=== PATIENT | female | born 2000 | race African-American/Black ===

== ENCOUNTER 2022-11-12 14:28 | Emergency (ER) | payer SELFPAY ==
[2022-11-12 14:29] VITALS: BP 165/103; PULSE 109; RESP 20; TEMP 36; O2SAT 98; BMI 43.4
--- NOTE | 2022-11-12 14:36 | EX.ED.DYSGE1 ---
HPI History of Present Illness Chief Complaint: Anxiety [facility] Medical History (Updated 11/12/22 @ 14:42 by Kelin Canales) Anxiety Home Medications hydroxyzine HCl 25 mg tablet 25 mg PO TID PRN anxiety #30 tabs 11/12/22 [Rx Last Taken Unknown] Allergy/AdvReac Type Severity Reaction Status Date / Time Penicillins [PCN] Allergy Laryngospas Verified 11/12/22 14:29 ms Social History Smoking Status: Never smoker EXAM Physical Exam Const Vital Signs: 11/12/22 14:29 Temperature 96.8 F L Temperature Source Temporal Pulse Rate 109 H Respiratory Rate 20 H Blood Pressure 165/103 H Blood Pressure Mean 123 Pulse Ox 98 Oxygen Delivery Method Room Air MDM MDM MDM Narrative Medical decision making narrative: HISTORY OF PRESENT ILLNESS: 22-year-old female here with anxiety. States she recently moved. States has been taking her anxiety medications which are but they do not seem to be working. She denies any suicidal homicidal ideation. Patient states she has moved in with her sister recently and this has caused more anxiety. She denies any chest pain, shortness of breath, bleeding diathesis, vomiting or other volume loss. REVIEW OF SYSTEMS: Pertinent positives: Anxiety Pertinent negatives: Suicidal ideation, homicidal ideation PHYSICAL EXAM: Nursing triage notes reviewed, Vital signs reviewed Constitutional: please see mdm HENT: MMM Eyes: Pupils equal round and reactive to light, Extraocular muscles intact Neck: No stridor, no JVD, full neck ROM Lungs: Clear to auscultation, No wheezing or rales. No increased work of breathing, no conversational dyspnea, no accessory muscle use, no nasal flaring. No respiratory distress noted Heart: Regular rate and rhythm, No murmurs, No rubs and No gallops, 2+ distal pulses (radial, femoral, posterior tibial) in all extremities Abdomen: Soft, there is no tenderness, rigidity, rebound or guarding, no obvious peritoneal signs, no palpable pulsatile abdominal masses, no auscultated abdominal bruit : No CVAT Extremities: No edema Neuro: No focal neurological deficits, cranial nerves II through XII intact, 5/5 strength in all extremities. Intact sensation to light touch in all extremities, 2+ reflexes bilateral patella tendons. Normal gait. No ataxia. Skin: No rash or lesions noted Psych: Appears calm, goal-directed thought process, not respond to internal stimuli MEDICAL DECISION MAKING: Chief Complaint: Anxiety External records reviewed: No recent ED visits or hospitalizations noted MDM Narrative: 22-year-old female here with anxiety. She was initially hypertensive, tachycardic and tachypneic. She is afebrile. Patient did not appear particularly anxious. I obtained an EKG which showed no arrhythmia heart rate was 83 improved from initial triage heart rate of 109. She is able to endorse feeling more anxious secondary to change in living situation. She denied any suicidal ideation, homicidal ideation. She denied any auditory visual hallucinations. She states has been compliant with her home lithium but has not been compliant with her home venlafaxine. I offered her Atarax here and a prescription for Atarax obtained a social work consultation for community resources. Patient did not have a decompensated psychiatric condition on exam. She had no endorse symptoms of suicide or homicide. She is appropriate for outpatient follow-up. Factors affecting care: History of anxiety Social determinants of health: Denies alcohol or illicit drug use History obtained from others: None Shared decision making: I will have a discussion with the patient and or visitors regarding risk/benefits of further testing or admission. They will be made aware of of the risk/benefits inherent in this decision they will be given the opportunity to voice understanding. Consults: Behavioral health (social work) Lab Data Attestation: I reviewed the patient's lab results. Lab results narrative: EKG with normal sinus rhythm, normal axis, no intervals, no STEMI, no Brugada, no ARVD, no signs of pericarditis Discharge Plan Triage Chief Complaint: Anxiety ED Provider: Gibson [place] Dx/Rx/DC Orders Instructions: ED Anxiety Reaction Prescriptions: New hydroxyzine HCl 25 mg tablet 25 mg PO TID PRN (Reason: anxiety) Qty: 30 0RF Stand Alone Forms: ED Work / School Excuse Primary Care Provider: Care Physician,No Primary Activity Restrictions/Additional Instructions: Thank you for trusting us with your care today! Please take Atarax (hydroxyzine) as prescribed as needed for anxiety. Please return if you develop suicidal ideation, homicidal ideation, auditory or visual hallucinations. Please return to the emergency department if your symptoms change or worsen. Please follow with your primary care physician for further outpatient evaluation and management. Disposition Disposition: Home, Self Care Discharge Date/Time: 11/12/22:35
--- NOTE | 2022-11-12 14:46 | ED.RN ---
NO OLD EKGS
--- NOTE | 2022-11-12 21:09 | CM.ED ---
Social Work SW introduced self and role. Pt reports high anxiety and many stressors. Pt reports she does not believe her medications are working. Pt recently moved to [place] from [place] and has not become established with providers. Pt reports significant mental health history and medications and would benefit from finding a local psychiatric provider. Pt reports her parents also just moved here and they are not established either. Pt provided with PCP resources, counseling and psychiatry resources, Juliana Jung information and anxiety coping worksheet. SW provided emotional support. Tamara Tello FIELD ENUMERATOR, STREET WORKER
== END 2022-11-12 15:35 | disposition home or self-care (01) ==
LOC: ED 15:07
PROVIDERS: Emergency Provider Emergency Medicine; Visit Provider Emergency Medicine
DX: F41.9 Anxiety disorder, unspecified (principal)
CPT/HCPCS: 93005; 99282

== ENCOUNTER 2023-03-01 05:09 | Emergency (ER) | payer MEDICAID, SELFPAY ==
[2023-03-01 05:10] VITALS: BP 142/88; PULSE 95; RESP 18; TEMP 36.3; O2SAT 100; BMI 42.7
--- NOTE | 2023-03-01 05:15 | CT_ITS ---
EXAM: CT Abdomen And Pelvis W/O Contrast Injection HISTORY: Kidney Stone L nausea, abdomen pain, no hx kidney stones TECHNIQUE: Routine protocol CT abdomen and pelvis. IV Contrast: None.. Oral contrast: None. RADIATION DOSAGE (If Supplied By Facility): CTDIvol = ( 21.14 ) mGy, DLP = ( 1188.38 ) mGycm Individualized dose optimization techniques were used for this CT. COMPARISON: None. LIMITATIONS: None. FINDINGS: LOWER CHEST: Included lung bases are clear. LIVER: Grossly unremarkable. GALLBLADDER AND BILIARY TREE: Gallstones in the gallbladder. No definite inflammatory changes. PANCREAS: Grossly unremarkable. SPLEEN: Enlarged. Approximately 18 cm craniocaudal. ADRENAL GLANDS: Grossly unremarkable. KIDNEYS AND URETERS: No calculi demonstrated. No hydronephrosis. PERITONEUM: No free air. No free fluid. BOWEL: No bowel obstruction. Several mildly enlarged lymph nodes in the mesentery. APPENDIX: Visualized and unremarkable. No evidence of acute appendicitis. VESSELS: Abdominal aorta is normal caliber. REPRODUCTIVE ORGANS: Approximately 3 cm low-attenuation structure right ovary probable cyst. URINARY BLADDER: Not distended. ABDOMINAL WALL: Unremarkable. BONES: No acute abnormalities. CT/Abdomen/Pelvis without Cont IMPRESSION: No urolithiasis or hydronephrosis. Splenomegaly. Mesenteric adenopathy nonspecific. Cholelithiasis. Electronically Signed: Sultana Albarado MD at 6:15 EDT ,
--- NOTE | 2023-03-01 05:15 | ED.VIS.GI ---
HPI HPI - GI History of Present Illness Chief Complaint: Abd Pain Informant: patient and EMS Abdominal Pain/Flank Pain Onset: Hours (A couple) Context: Sudden Onset (Woke her up from sleep) Timing: Continuous and Waxes and wanes Quality: Aching Location: Left Flank Current Severity: Severe Maximum Severity: Severe Nausea/Vomiting/Emesis GI Symptom: Positive for Nausea; Negative for Vomiting Diarrhea/Melena/Hematochezia GI Symptom: Negative for Diarrhea, Melena or Hematochezia Associated Symptoms Associated Symptoms: Negative for Dysuria, Frequency, Hematuria or Urgency Narrative Narrative: Woke up with this colicky left-sided abdominal/flank pain that she has never had before. Nausea, no urinary symptoms or problems with bowel movements recently. No pain in her back. No recent . [facility] Medical History (Updated 03/01/23 @ 06:[address] Giacomo Kwon MD) Anxiety Home Medications hydroxyzine HCl 25 mg tablet 25 mg PO TID PRN anxiety #30 tabs 11/12/22 [Rx Last Taken Unknown] Allergy/AdvReac Type Severity Reaction Status Date / Time Penicillins [PCN] Allergy Laryngospas Verified 03/01/23 05:12 ms Surgical History (Updated 03/01/23 @ 05:[address] Giacomo Kwon MD) History of Social History Smoking Status: Never smoker ROS ROS ED Constitutional Constitutional ED: Denies chills or fever(s) Eyes Eyes: Denies change in vision or diplopia ENT ENT ED: Denies rhinorrhea or sore throat Cardiovascular Cardiovascular: Denies chest pain or palpitations Respiratory/Chest Respiratory/Chest: Denies cough or dyspnea Gastrointestinal Gastrointestinal: Reports abdominal pain and nausea; Denies diarrhea or vomiting Genitourinary Genitourinary ED: Denies dysuria or hematuria Musculoskeletal Musculoskeletal: Denies back pain or neck pain Integumentary Denies abscess or rash Neurologic Neurologic: Denies headache(s), paresthesias or weakness Psychiatric Psychiatric: Denies anxiety or suicidal thoughts EXAM Physical Exam Const Vital Signs: 03/01/23 05:10 Temperature 97.4 F L Temperature Source Temporal Pulse Rate 95 Respiratory Rate 18 Blood Pressure 142/88 H Blood Pressure Mean 106 Pulse Ox 100 Oxygen Delivery Method Room Air Positive well nourished and well developed General Appearance ED: well developed and NAD HEENT Reports moist mucous membranes normocephalic and atraumatic Eyes PERRL and EOMs intact bilaterally Neck full ROM and supple Resp normal respiratory effort and clear to auscultation bilaterally Cardio regular rate, regular rhythm and no murmurs GI non-tender and non-distended Auscultation: normoactive bowel sounds Palpation: soft Back/Spine no CVA tenderness General Back: other FROM Extremity normal to inspection General Extremety ED: Negative for edema, pulses abnormal or tenderness General Extremity: Negative for edema or pulses abnormal Neuro oriented x3, CN's II-XII intact bilaterally and no sensory deficits noted Sensorium / Orientation: awake and alert Motor Exam: strength 5/5 throughout Skin no rashes or lesions noted and no wounds MDM MDM MDM Narrative Medical decision making narrative: Patient's symptoms are compatible with ureterolithiasis and renal colic, since she has never had this before we sent her for CT, I reviewed the images and report which I agree with, it does not reveal signs of an obstructive uropathy or kidney stone. Rather shows signs of mesenteric adenitis without signs of a separate acute process. Also noted is cholelithiasis. Patient is not tender in this area of her abdomen. Her urinalysis is negative showing no signs of infection or blood. confirmed to be negative. She was given Toradol while we were waiting for these test to return, but she states that it did not help her pain, and now it switch to the other side and is on both sides. This makes functional GI/intestinal pain more likely, so she was given Mylanta advanced and dicyclomine. She felt much better after this. CT results show mesenteric adenopathy, there is some evidence of cholelithiasis but she is not having any pain or tenderness at her gallbladder. No signs of any other acute process on the CT. I reviewed the images and report I agree with it. Given all of this, she is stable for discharge home supportive care is advised. I do not think we need to get labs for this, she is comfortable with that plan Lab Data Attestation: I reviewed the patient's lab results. Labs: Laboratory Results - last 24 hr 03/01/23 05:22 Serum , Qual NEGATIVE Urine Color Yellow Urine Clarity Clear Urine pH 7.0 Ur Specific [place] 1.010 Urine Protein Negative Urine Glucose (UA) Normal Urine Ketones Negative Urine Occult Blood Negative Urine Nitrite Negative Urine Bilirubin Negative Urine Urobilinogen Normal Ur Leukocyte Esterase Negative Urine RBC 0 SEEN Urine WBC 0 SEEN Ur Squamous Epith Cells 0-5 SEEN Urine Bacteria 1+ Urine Mucus 0 SEEN Radiography Diagnostic Testing: Clinical Impression(s) from Imaging Studies Abdomen/Pelvis CT 03/01/23 05:15 IMPRESSION: No urolithiasis or hydronephrosis. Splenomegaly. Mesenteric adenopathy nonspecific. Cholelithiasis. Electronically Signed: Sultana Albarado MD at 6:15 EDT , Discharge Plan Triage Chief Complaint: Abd Pain ED Provider: Giacomo Kwon Dx/Rx/DC Orders Clinical Impression: Mesenteric lymphadenopathy, Cholelithiasis Instructions: What Are Gallstones, ED Adenitis, Mesenteric Prescriptions: No Action hydroxyzine HCl 25 mg tablet 25 mg PO TID PRN (Reason: anxiety) Qty: 30 0RF Primary Care Provider: Care Physician,No Primary Referrals: Doctor,Your [Non-Staff] - 1 Week if not improving Disposition Disposition: Home, Self Care
[2023-03-01] MEDS: Ondansetron 4 MG/2 ML Vial IV (05:22)
[2023-03-01] MEDS: Ketorolac 30 MG/ML Syringe IV (05:22)
[2023-03-01 05:29] LABS: Mucous, Urine 0 SEEN /hpf (<or=2+); Red Blood Cells-Urine 0 SEEN /hpf (0-5); White Blood Cells 0 SEEN /hpf (0-5)
[2023-03-01 05:30] LABS: Color, Urine Yellow (Yellow); Glucose, Dipstick Normal (Normal); Ketone-Dipstick Negative (Negative); Leukocyte Esterase-Dipstick Negative /ul (Negative); Nitrite-Dipstick Negative (Negative); Occult Blood-Urine Negative /ul (Negative); Protein-Dipstick Negative (Negative); Urine Bilirubin Dipstick Negative (Negative); Urine Clarity Clear (Clear); Urine Urobilinogen Normal (Normal)
[2023-03-01 05:41] LABS: Internal QC Validated? YES +Cl - CLEAR BKGD; Pregnancy, Serum, hCG Quali. NEGATIVE Negative
[2023-03-01 05:53] LABS: Bacteria 1+ /hpf (None Seen); Squamous Epithelial Cells - UA 0-5 SEEN /hpf (5-10)
[2023-03-01] MEDS: Mag Hydrox/Al Hydrox/Simeth 30 ML UDC PO (06:11)
[2023-03-01] MEDS: Dicyclomine 10 MG Capsule 20 MG PO (06:11)
[2023-03-01 07:05] VITALS: BP 128/90; PULSE 54; RESP 14; O2SAT 97
== END 2023-03-01 07:10 | disposition home or self-care (01) ==
PROVIDERS: Emergency Provider Emergency Medicine; Visit Provider Emergency Medicine
DX: R59.0 Localized enlarged lymph nodes (principal); K80.20 Calculus of gallbladder without cholecystitis without obstruction
CPT/HCPCS: 74176; 81001; 84703; 96374; 96375; 99285; J2405

== ENCOUNTER 2023-06-24 23:07 | Emergency (ER) | payer MEDICAID, SELFPAY ==
[2023-06-24 23:07] VITALS: BP 150/107; PULSE 86; RESP 16; TEMP 36.4; O2SAT 98; BMI 41.3
--- NOTE | 2023-06-24 23:56 | EX.ED.VIS.UR ---
HPI HPI - URI History of Present Illness Chief Complaint: Cold Sx Informant: patient Onset/Context/Timing Onset: Days Context: Gradual Onset Timing: Continuous Current Severity: Mild Maximum Severity: Mild Associated Symptoms Associated Symptoms: Positive for Nasal Congestion Narrative Narrative: 23-year-old female history of asthma and anemia. Younger sister has URI symptoms she is developing same. No vomiting or diarrhea. No fever. Not short of breath. Also states she is having more anxiety. Not suicidal. Prior similar symptoms: Yes Recent Illness/Hospitalization: No ROS ROS ED ROS Narrative URI symptoms. Review of Systems ROS Unobtainable: Denies due to encephalopathy Constitutional Constitutional ED: Denies chills or fever(s) Eyes Eyes: Denies blurry vision ENT ENT ED: Denies ear pain Cardiovascular Cardiovascular: Denies chest pain Respiratory/Chest Respiratory/Chest: Reports cough; Denies dyspnea Gastrointestinal Gastrointestinal: Denies abdominal pain, constipation, diarrhea, melena, nausea or vomiting Genitourinary Genitourinary ED: Denies dysuria or hematuria Musculoskeletal Musculoskeletal: Denies arthralgias Integumentary Denies abscess, Abrasions or rash Neurologic Neurologic: Denies headache(s) Psychiatric Psychiatric: Reports anxiety; Denies depression Endocrine Endocrinology: Denies cold intolerance Hematologic/Lymphatic Hematologic/Lymphatic: Denies easy bleeding Allergic/Immunologic Allergic/Immunologic ED: Denies mouth swelling PFSH PFSH Medical History Alpha thalassemia trait Ankle fracture, left Anxiety G6PD deficiency Iron deficiency anemia due to chronic blood loss Ovarian cyst Splenomegaly Home Medications hydroxyzine HCl 25 mg tablet 25 mg PO TID PRN anxiety #30 tabs 11/12/22 [Rx Last Taken Unknown] desvenlafaxine succinate 50 mg tablet,extended release 24 hr (Pristiq) 50 mg PO DAILY 03/18/23 [History Last Taken Unknown] lamotrigine 25 mg tablet 25 mg PO DAILY 03/28/23 [History Last Taken Unknown] Allergy/AdvReac Type Severity Reaction Status Date / Time Penicillins [PCN] Allergy Laryngospas Verified 06/24/23 23:09 ms Family History Mother Diabetes Hypertension Grandmother Cancer possibly SCLC, mets to brain; maternal Surgical History History of History of wisdom tooth extraction Social History Smoking Status: Never smoker alcohol intake: never substance use type: does not use EXAM Physical Exam Narrative Exam Narrative: Well-appearing 23-year-old female. Vital signs stable afebrile. Pulse ox 98% on room air. No distress. H EENT exam unremarkable. TMs normal. Posterior pharynx normal. Moist mucous membranes. Neck nontender no lymphadenopathy. No JVD. Lungs clear to auscultation bilaterally. Heart regular rhythm no murmur. Abdomen soft nontender. Moving all 4 extremities. Calves are nontender without edema or cords. Neurologically she is awake and alert with no focal motor deficits. Very benign exam. Const Vital Signs: 06/24/23 23:07 Temperature 97.5 F L Temperature Source Temporal Pulse Rate 86 Respiratory Rate 16 Blood Pressure 150/107 H Blood Pressure Mean 121 Pulse Ox 98 Oxygen Delivery Method Room Air Positive well nourished and well developed; Negative for cachectic or contractures General Appearance ED: well developed and NAD; Negative for cachectic, contractures, cyanotic, diaphoretic or pallor Nutritional Appearance: Negative for cachectic HEENT Reports moist mucous membranes normocephalic and atraumatic Face and Sinus: Negative for sinus tenderness Teeth and Gingiva: Negative for caries Throat: posterior oropharynx normal Eyes PERRL and EOMs intact bilaterally General Eye ED: Negative for pale conjunctiva or scleral icterus Neck no lymphadenopathy, supple, no meningeal signs and no JVD General: Negative for anterior neck swelling or lymphadenopathy Resp normal respiratory effort and clear to auscultation bilaterally Effort and Inspection: Negative for retractions Auscultation: Negative for rales, rhonchi or wheezes Cardio S1 normal heart sound, S2 normal heart sound and no murmurs Rate: regular rate Rhythm: regular rhythm GI non-tender, non-distended and no masses Inspection: Negative for abdominal distention Auscultation: normoactive bowel sounds Palpation: soft; Negative for tender or guarding Back/Spine no CVA tenderness and normal ROM General Back: Negative for CVA tenderness Cervical Spine: Negative for cervical spine tenderness Thoracic Spine / Upper Back: Negative for thoracic spinal tenderness Lumbar Spine / Lower Back: Negative for lumbar spinal tenderness Sacrum: Negative for tenderness Extremity normal to inspection and full ROM General Extremety ED: Negative for cyanosis, tenderness or other findings General Extremity: Negative for cyanosis or other findings Neuro oriented x3 and CN's II-XII intact bilaterally Sensorium / Orientation: alert, oriented to person, oriented to place and oriented to time; Negative for orientation impaired or lethargic Motor Exam: strength 5/5 throughout Psych mental status grossly normal Appearance: Negative for other Attitude: No agitated Mood & Affect: Negative for depressed, anxious or tearful Skin General Skin Exam: Negative for jaundice or pallor Lesions: no lesions Rashes: no rashes Trauma: Negative for abrasion or laceration MDM MDM MDM Narrative Medical decision making narrative: 23-year-old with URI symptoms. Exam is benign. Suspect viral illness. She is already on anxiety meds. She has a follow-up appointment the end of this week with her primary care physician which they can discuss if she needs additional medication. She is comfortable being discharged home. History & Record Review Discussion w/independent historian: Patient Discharge Plan Triage Chief Complaint: Cold Sx ED Provider: Mark Lutz Dx/Rx/DC Orders Clinical Impression: Anxiety, Viral URI Instructions: ED URI, Viral, No Abx (Adult) Prescriptions: No Action desvenlafaxine succinate [Pristiq] 50 mg tablet extended release 24 hr 50 mg PO DAILY lamotrigine 25 mg tablet 25 mg PO DAILY hydroxyzine HCl 25 mg tablet 25 mg PO TID PRN (Reason: anxiety) Qty: 30 0RF Primary Care Provider: Care Physician,No Primary Referrals: Care Physician,No Primary [Primary Care Provider] - Activity Restrictions/Additional Instructions: Plenty of fluids and rest. Tylenol and ibuprofen for body aches. Follow-up with your doctor. Continue your anxiety meds. Disposition Disposition: Home, Self Care
== END 2023-06-25 | disposition home or self-care (01) ==
LOC: ED 06-25
PROVIDERS: Emergency Provider Emergency Medicine; Visit Provider Emergency Medicine
DX: F41.9 Anxiety disorder, unspecified (principal); J06.9 Acute upper respiratory infection, unspecified
CPT/HCPCS: 99282

== ENCOUNTER 2023-09-06 20:48 | Emergency (ER) | payer MEDICAID, SELFPAY ==
[2023-09-06 20:50] VITALS: BP 150/99; PULSE 112; RESP 18; TEMP 36.6; O2SAT 98
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
[2023-09-06 21:25] VITALS: BMI 42.5
[2023-09-06 21:28] VITALS: BP 112/87; PULSE 81; RESP 16; TEMP 36.3; O2SAT 99
--- OUTSIDE RECORDS SUMMARY | 2023-09-06 21:32 | XMS RPT_ITS | CCD ---
Author Name Unknown Address [address] [place] [address] Organization [facility] Care Team Providers Care Customer Relationship Specialist Name Role Phone LIVE GOOD, NIYAH Attending Unavailable FRANKIE JACKSON, ELISABETH Attending Unavailable SOCO JACKSON, DR RODOLFO Mejia Attending Unavailable Allergies Allergy Classification Reported Allergen(s) Allergy Type Date of Onset Reaction(s) Facility (1 source) Penicillin; Translations: [penicillin] Drug Allergy [facility] Medications Current Medications Medication Drug Class(es) Dates Sig (Normalized) Sig (Original) famotidine 20 mg oral tablet (1 source) Histamine-2 Receptor Antagonist Start: 08-18-2023 Pepcid 20 mg oral tablet Dose : 20 mg = 1 tab(s), Oral, BID, # 30 tab(s), 0 Refill(s) Start Date: 08/18/23 Status: Ordered ondansetron 4 mg disintegrating oral tablet (1 source) Serotonin-3 Receptor Antagonist Start: 08-18-2023 End: 08-22-2023 ondansetron 4 mg oral tablet, disintegrating Dose : 4 mg = 1 tab(s), Oral, q6h, X 4 day(s), # 16 tab(s), 0 Refill(s), 08/22/23 9:17:00 PM EST Start Date: 08/18/23 Stop Date: 08/22/23 Status: Ordered Problems Problem Classification Problem Date Documented Da te Episodic/Chronic Abdominal pain (1 source) Abdominal pain; Translations: [Unspecified abdominal pain] Onset: 08-18-2023 Episodic Results Test Name Value Interpretation Reference Range Facil ity Vital Signs Date Time Vital Sign Value Performing Clinician Faci lity 08-18-2023 20:15-0500 Diastolic Blood Pressure Non-Invasive 66 mm[Hg] ELISABETH DAVID DO [facility] 08-18-2023 20:15-0500 Heart rate 51 /min ELISABETH ELT DO [facility] 08-18-2023 20:15-0500 Respiratory rate 18 /min ELISABETH ELT DO [facility] 08-18-2023 20:15-0500 Systolic Blood Pressure Non-Invasive 123 mm[Hg] ELISABETH ELT DO [facility] 08-18-2023 19:42-0500 Body temperature 97.88 [degF] ELISABETH ELT DO [facility] 08-18-2023 19:42-0500 Diastolic Blood Pressure Non-Invasive 87 mm[Hg] ELISABETH ELT DO [facility] 08-18-2023 19:42-0500 Heart rate 68 /min ELISABETH ELT DO [facility] 08-18-2023 19:42-0500 Respiratory rate 18 /min ELISABETH ELT DO [facility] 08-18-2023 19:42-0500 Systolic Blood Pressure Non-Invasive 140 mm[Hg] ELISABETH ELT DO [facility] Encounters Encounter Date Encounter Type Care Provider Facility Start: 08-18-2023 End: 08-18-2023 Emergency department patient visit ELISABETH DAVID DO Facility:B Start: 08-18-2023 End: 08-18-2023 Emergency department patient visit ELISABETH DAVID DO [facility] Start: 11-20-2022 End: 11-20-2022 Emergency department patient visit NIYAH MANCINI MD Facility:[facility] Start: 11-17-2022 End: 11-17-2022 Emergency department patient visit DR RODOLFO WAN DO Facility:B Payers Date Payer Category Payer Unknown [id number] 2022 Self-pay 2000 Unknown [id number] 2000 Unknown [id number] 2000 Unknown [id number] Social History Date Type Detail Facility Tobacco smoking status No Smoking Status Entered [facility] Sex Assigned At Female [facility] Functional Status Date Assessment Result Facility 08-18-2023 Functional Status Independent [facility] 08-18-2023 Functional Status Standard Safet y ID band on, Allergy Band on, Call device within reach, Bed in low position, Wheels locked, Upper/Half-Length side-rails up, Safety level maintained [facility] Mental Status Date Assessment Result Facility 08-18-2023 Mental Status Orientation Oriented x 4 [facility] 08-18-2023 Mental Status [facility] Discharge instructions 08-18-2023 Note Date & Type Note Facility 08-18-2023 Hospital Discharg e instructions Patient Education 08/18/2023 21:17:20 Abdominal Pain, Unknown Cause, (Female) Unknown Causes of Abdominal Pain (Female) The exact cause of your belly (abdominal) pain is not clear. This does not mean that this is something to worry about. Everyone likes to know the exact cause of the problem. But sometimes with belly pain, there is no clear-cut cause, and this could be a good thing. The good news is that your symptoms can be treated, and you will feel better. Your condition does not seem serious now. But sometimes the signs of a serious problem may take more time to appear. For this reason, it is important for you to watch for any new symptoms, problems, or worsening of your condition. Over the next few days, the abdominal pain may come and go. Or it may be constant. Other common symptoms can include nausea and vomiting. Sometimes it can be difficult to tell if you feel nauseous. You may just feel bad and not connect that feeling to nausea. Constipation, diarrhea, and a fever may go along with the pain. The pain may continue even if treated correctly over the following days. Depending on how things go, sometimes the cause can become clear and may need more or different treatment. Additional evaluations, medicines, or tests may also be needed. Home care Your healthcare provider may prescribe medicine for pain, symptoms, or an infection. Follow the healthcare provider's instructions for taking these medicines. General care Rest as much as you can until your next exam. No strenuous activities. Try to find positions that ease discomfort. A small pillow placed on the abdomen may help relieve pain. Something warm on your abdomen (such as a heating pad) may help, but be careful not to burn yourself. Diet Don t force yourself to eat, especially if having cramps, vomiting, or diarrhea. Water is important so you don't get dehydrated. Soup may also be good. Sports drinks may also help, especially if they are not too acidic. Don't drink sugary drinks as this can make things worse. Take liquids in small amounts. Don t guzzle them. Caffeine sometimes makes the pain and cramping worse. Don t take dairy products if you have vomiting or diarrhea. Don't eat large amounts at a time. Wait a few minutes between bites. Eat a diet low in fiber (called a low-residue diet). Foods allowed include refined breads, white rice, fruit and vegetable juices without pulp, tender meats. These foods will pass more easily through the intestine. Don t have whole-grain foods, whole fruits and vegetables, meats, seeds and nuts, fried or fatty foods, dairy, alcohol and spicy foods until your symptoms go away. Follow-up care Follow up with your healthcare provider, or as advised, if your pain does not begin to improve in the next 24 hours. Call 911 Call 911 if any of these occur: Trouble breathing Confusion Fainting or loss of consciousness Rapid heart rate Seizure When to seek medical advice Call your healthcare provider right away if any of these occur: Pain gets worse or moves to the right lower abdomen New or worsening vomiting or diarrhea Swelling of the abdomen Unable to pass stool for more than 3 days Fever of 100.4 F (38 C) or higher, or as directed by your healthcare provider. Blood in vomit or bowel movements (dark red or black color) Yellow color of eyes and skin (jaundice) Weakness, dizziness Chest, arm, back, neck, or jaw pain Unexpected vaginal bleeding or missed period Can't keep down liquids or water and you are getting dehydrated [id number] [employer]. [address] [place] [address]. All rights reserved. This information is not intended as a substitute for professional medical care. Always follow your healthcare professional's instructions. Follow Up Care 08/18/2023 19:33:03 With:ZANDER OVERTON MD Address: [address] [place] [phone] When:2-4 days [facility] Clinical Note 08-18-2023 Note Date & Type Note Facility 08-18-2023 Note Discharge Instructions Thank you for allowing [facility] to assist you with your healthcare needs. The following is important discharge information regarding your hospital visit. Diagnosis from Today's Visit Abdominal pain Flank pain What to Do Next Instructions from Your Care Team No qualifying data available. Post Acute Orders No qualifying data available. You Need to Schedule the Following Appointments Follow Up with ZANDER OVERTON MD When Within 2-4 days Where: [address] [facility] [address] [place] [address] [phone] Allergies penicillin Medications Please ask your primary doctor or pharmacist before taking any other medication not listed, including over the counter drugs, herbal medications, vitamins and or supplements as they may interact with your home medications. What How Much When Instructions Last Dose New famotidine (Pepcid 20 mg oral tablet) 1 tab(s) by mouth Two (2) times a day Printed Prescription New ondansetron (ondansetron 4 mg oral tablet, disintegrating) 1 tab(s) by mouth Every 6 hours Duration: 4 Days Printed Prescription Please take this list to your next doctor s visit. Bring all medications you take, including over the counter medications, herbals and other supplements with you to your doctor s visit. Patients and families are reminded to discard old lists and to update any records with all medication providers or retail pharmacies. Education Materials Unknown Causes of Abdominal Pain (Female) The exact cause of your belly (abdominal) pain is not clear. This does not mean that this is something to worry about. Everyone likes to know the exact cause of the problem. But sometimes with belly pain, there is no clear-cut cause, and this could be a good thing. The good news is that your symptoms can be treated, and you will feel better. Your condition does not seem serious now. But sometimes the signs of a serious problem may take more time to appear. For this reason, it is important for you to watch for any new symptoms, problems, or worsening of your condition. Over the next few days, the abdominal pain may come and go. Or it may be constant. Other common symptoms can include nausea and vomiting. Sometimes it can be difficult to tell if you feel nauseous. You may just feel bad and not connect that feeling to nausea. Constipation, diarrhea, and a fever may go along with the pain. The pain may continue even if treated correctly over the following days. Depending on how things go, sometimes the cause can become clear and may need more or different treatment. Additional evaluations, medicines, or tests may also be needed. Home care Your healthcare provider may prescribe medicine for pain, symptoms, or an infection. Follow the healthcare provider's instructions for taking these medicines. General care Rest as much as you can until your next exam. No strenuous activities. Try to find positions that ease discomfort. A small pillow placed on the abdomen may help relieve pain. Something warm on your abdomen (such as a heating pad) may help, but be careful not to burn yourself. Diet Don t force yourself to eat, especially if having cramps, vomiting, or diarrhea. Water is important so you don't get dehydrated. Soup may also be good. Sports drinks may also help, especially if they are not too acidic. Don't drink sugary drinks as this can make things worse. Take liquids in small amounts. Don t guzzle them. Caffeine sometimes makes the pain and cramping worse. Don t take dairy products if you have vomiting or diarrhea. Don't eat large amounts at a time. Wait a few minutes between bites. Eat a diet low in fiber (called a low-residue diet). Foods allowed include refined breads, white rice, fruit and vegetable juices without pulp, tender meats. These foods will pass more easily through the intestine. Don t have whole-grain foods, whole fruits and vegetables, meats, seeds and nuts, fried or fatty foods, dairy, alcohol and spicy foods until your symptoms go away. Follow-up care Follow up with your healthcare provider, or as advised, if your pain does not begin to improve in the next 24 hours. Call 911 Call 911 if any of these occur: Trouble breathing Confusion Fainting or loss of consciousness Rapid heart rate Seizure When to seek medical advice Call your healthcare provider right away if any of these occur: Pain gets worse or moves to the right lower abdomen New or worsening vomiting or diarrhea Swelling of the abdomen Unable to pass stool for more than 3 days Fever of 100.4 F (38 C) or higher, or as directed by your healthcare provider. Blood in vomit or bowel movements (dark red or black color) Yellow color of eyes and skin (jaundice) Weakness, dizziness Chest, arm, back, neck, or jaw pain Unexpected vaginal bleeding or missed period Can't keep down liquids or water and you are getting dehydrated [phone] [employer]. [address] [place] [address]. All rights reserved. This information is not intended as a substitute for professional medical care. Always follow your healthcare professional's instructions. Additional Information VACCINATE! IT SAVES LIVES! Members of the community who have not yet received the COVID-19 vaccine and would like to receive it can visit one of [facility] vaccine clinics. There are many vaccine clinic locations within the [facility] [address]. For locations and available times, please visit [email or web address]/. It is important to note that some COVID mobile vaccine clinics are held outdoors and may be canceled in rainy or stormy conditions. To learn more about pediatric vaccinations (ages 5-11), we invite you to visit the [facility] webpage. [email or web address]/pages/[email or web address] 798-Udgbm-Ektxnteygxb-Frequently-[email or web address] -Questions.html To learn more about the COVID-19 vaccine, we invite you to visit the CDC website for a list of frequently asked questions. https://www.cdc.gov/coronavirus/2019-n cov/vaccines/faq.html [facility] Patient Portal Access Instructions: Stay connected with your healthcare team and access your personal medical information anytime with the [facility] Patient Portal. If you would like a full copy of your medical records please contact the [facility] Medical Records Department Saturday through Saturday between 8a.m. and 4:30p.m. Please follow the directions below to access the portal: 1.Access the email account you provided upon registration to the [facility].2.Look for an invitation email from [facility].3.Open the email and access the invitation link: Accept Invitation to [facility].Fill in the required bosch to create your account. Sign into [email or web address] Diary with your username and password that you created in the above steps to stay up to date. You can then view a summary of results, a summary of your visits, and the ability to download your summaries to your computer or send the information securely to a physician. Remember that your healthcare information is confidential, so carefully consider who you will allow to register on the [facility] Patient Portal for access to your information. You can also access the [facility] Patient Portal on the [employer]. Simply click on Health Records under Health Data and then click on the [employer] logo. HOW TO SAFELY DISPOSE OF PRESCRIPTION MEDICATIONS Please use one of the following methods to safely dispose of your unused medications. 1.Use a drug disposal kit: the drug disposal pouch allows you to safely discard your old and unused drugs. Ask your nurse to give you one when you are discharged.2.Visit a local take-back location: Many local pharmacies and police departments have programs that collect old and unwanted prescription drugs. Call your local pharmacy or go to http://[employer]/9I9Zw7i to find one close to you.3.Make use of household items: Use cat litter or old coffee grounds to dispose medications if other options are not available. Mix your drugs with these household products, seal them in an airtight container and throw it into the garbage. Call [facility]: [phone] to be sure your drugs can be disposed of in this way. Some medicines may require a different approach.4.Never flush your medications down the toilet. IF YOU HAVE BEEN PRESCRIBED AN OPIOIDS FOR PAIN If you have been prescribed an opioid (such as hydrocodone, oxycodone or morphine), it is critical to understand the possible side effects and risks of opioid pain medications. Even when taken as directed, opioids can have several side effects including: Tolerance, meaning you might need to take more of a medication for the same pain relief. Nausea, vomiting and/or constipation. Sleepiness, dizziness, dry mouth, confusion, depression or itching. Physical dependence, meaning you have withdrawal symptoms when a medication is stopped ? this can develop within a few days. KNOW YOUR RESPONSIBILITIES It is important to know exactly how much and how often to take the opioid pain medications you are prescribed. Never take opioids in higher amounts or more often than prescribed. Do not combine opioids with alcohol or other drugs that cause drowsiness, such as benzodiazepines, also known as benzos, including diazepam and alprazolam, muscle relaxants or sleep aids. Never sell or share prescription opioids. This is illegal. Store opioids in a secure place and out of reach of others (including children, family, friends and visitors). The last page(s) of this document has been signed and retained as a CHART COPY Signatures Patient Education Materials Abdominal Pain, Unknown Cause, (Female) Medication Leaflets My discharge plan and instructions have been reviewed and explained to me and IOSMAR ELIXIS understand my current condition and have read and understand these discharge instructions. I have received a written copy of the plan/instructions. If I have questions, I am aware that I should contact my doctor. 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 The following is important discharge information regarding your hospital visit. Diagnosis from Today's Visit Abdominal pain Flank pain What to Do Next Instructions from Your Care Team No qualifying data available. Post Acute Orders No qualifying data available. You Need to Schedule the Following Appointments Follow Up with ZANDER OVERTON MD When Within 2-4 days Where: [address] [place] [address] [phone] Allergies penicillin Medications Please ask your primary doctor or pharmacist before taking any other medication not listed, including over the counter drugs, herbal medications, vitamins and or supplements as they may interact with your home medications. What How Much When Instructions Last Dose New famotidine (Pepcid 20 mg oral tablet) 1 tab(s) by mouth Two (2) times a day Printed Prescription New ondansetron (ondansetron 4 mg oral tablet, disintegrating) 1 tab(s) by mouth Every 6 hours Duration: 4 Days Printed Prescription Please take this list to your next doctor s visit. Bring all medications you take, including over the counter medications, herbals and other supplements with you to your doctor s visit. Patients and families are reminded to discard old lists and to update any records with all medication providers or retail pharmacies. Education Materials Unknown Causes of Abdominal Pain (Female) The exact cause of your belly (abdominal) pain is not clear. This does not mean that this is something to worry about. Everyone likes to know the exact cause of the problem. But sometimes with belly pain, there is no clear-cut cause, and this could be a good thing. The good news is that your symptoms can be treated, and you will feel better. Your condition does not seem serious now. But sometimes the signs of a serious problem may take more time to appear. For this reason, it is important for you to watch for any new symptoms, problems, or worsening of your condition. Over the next few days, the abdominal pain may come and go. Or it may be constant. Other common symptoms can include nausea and vomiting. Sometimes it can be difficult to tell if you feel nauseous. You may just feel bad and not connect that feeling to nausea. Constipation, diarrhea, and a fever may go along with the pain. The pain may continue even if treated correctly over the following days. Depending on how things go, sometimes the cause can become clear and may need more or different treatment. Additional evaluations, medicines, or tests may also be needed. Home care Your healthcare provider may prescribe medicine for pain, symptoms, or an infection. Follow the healthcare provider's instructions for taking these medicines. General care Rest as much as you can until your next exam. No strenuous activities. Try to find positions that ease discomfort. A small pillow placed on the abdomen may help relieve pain. Something warm on your abdomen (such as a heating pad) may help, but be careful not to burn yourself. Diet Don t force yourself to eat, especially if having cramps, vomiting, or diarrhea. Water is important so you don't get dehydrated. Soup may also be good. Sports drinks may also help, especially if they are not too acidic. Don't drink sugary drinks as this can make things worse. Take liquids in small amounts. Don t guzzle them. Caffeine sometimes makes the pain and cramping worse. Don t take dairy products if you have vomiting or diarrhea. Don't eat large amounts at a time. Wait a few minutes between bites. Eat a diet low in fiber (called a low-residue diet). Foods allowed include refined breads, white rice, fruit and vegetable juices without pulp, tender meats. These foods will pass more easily through the intestine. Don t have whole-grain foods, whole fruits and vegetables, meats, seeds and nuts, fried or fatty foods, dairy, alcohol and spicy foods until your symptoms go away. Follow-up care Follow up with your healthcare provider, or as advised, if your pain does not begin to improve in the next 24 hours. Call 911 Call 911 if any of these occur: Trouble breathing Confusion Fainting or loss of consciousness Rapid heart rate Seizure When to seek medical advice Call your healthcare provider right away if any of these occur: Pain gets worse or moves to the right lower abdomen New or worsening vomiting or diarrhea Swelling of the abdomen Unable to pass stool for more than 3 days Fever of 100.4 F (38 C) or higher, or as directed by your healthcare provider. Blood in vomit or bowel movements (dark red or black color) Yellow color of eyes and skin (jaundice) Weakness, dizziness Chest, arm, back, neck, or jaw pain Unexpected vaginal bleeding or missed period Can't keep down liquids or water and you are getting dehydrated [phone] [employer]. [address] [place] [address], [place] [address]. All rights reserved. This information is not intended as a substitute for professional medical care. Always follow your healthcare professional's instructions. Additional Information VACCINATE! IT SAVES LIVES! Members of the community who have not yet received the COVID-19 vaccine and would like to receive it can visit one of [facility] vaccine clinics. There are many vaccine clinic locations within the [facility] [address] [facility]. For locations and available times, please visit [email or web address]/. It is important to note that some COVID mobile vaccine clinics are held outdoors and may be canceled in rainy or stormy conditions. To learn more about pediatric vaccinations (ages 5-11), we invite you to visit the [facility] webpage. [email or web address]/[email or web address] 959-[email or web address]-[email or web address] -Questions.html To learn more about the COVID-19 vaccine, we invite you to visit the CDC website for a list of frequently asked questions. https://www.cdc.gov/coronavirus/2019-n cov/vaccines/faq.html [facility] Patient Portal Access Instructions: Stay connected with your healthcare team and access your personal medical information anytime with the [facility] Patient Portal. If you would like a full copy of your medical records please contact the [facility] Medical Records Department Saturday through Saturday between 8a.m. and 4:30p.m. Please follow the directions below to access the portal: 1.Access the email account you provided upon registration to the [facility].2.Look for an invitation email from [facility].3.Open the email and access the invitation link: Accept Invitation to [facility]4.Fill in the required bosch to create your account. Sign into [email or web address] with your username and password that you created in the above steps to stay up to date. You can then view a summary of results, a summary of your visits, and the ability to download your summaries to your computer or send the information securely to a physician. Remember that your healthcare information is confidential, so carefully consider who you will allow to register on the [facility] Patient Portal for access to your information. You can also access the [facility] Patient Portal on the [employer] anton[employer]. Simply click on Health Records under Health Data and then click on the [employer] logo. HOW TO SAFELY DISPOSE OF PRESCRIPTION MEDICATIONS Please use one of the following methods to safely dispose of your unused medications. 1.Use a drug disposal kit: the drug disposal pouch allows you to safely discard your old and unused drugs. Ask your nurse to give you one when you are discharged.2.Visit a local take-back location: Many local pharmacies and police departments have programs that collect old and unwanted prescription drugs. Call your local pharmacy or go to http://[employer]/0M8Id5n to find one close to you.3.Make use of household items: Use cat litter or old coffee grounds to dispose medications if other options are not available. Mix your drugs with these household products, seal them in an airtight container and throw it into the garbage. Call [facility]: [phone] to be sure your drugs can be disposed of in this way. Some medicines may require a different approach.4.Never flush your medications down the toilet. IF YOU HAVE BEEN PRESCRIBED AN OPIOIDS FOR PAIN If you have been prescribed an opioid (such as hydrocodone, oxycodone or morphine), it is critical to understand the possible side effects and risks of opioid pain medications. Even when taken as directed, opioids can have several side effects including: Tolerance, meaning you might need to take more of a medication for the same pain relief. Nausea, vomiting and/or constipation. Sleepiness, dizziness, dry mouth, confusion, depression or itching. Physical dependence, meaning you have withdrawal symptoms when a medication is stopped ? this can develop within a few days. KNOW YOUR RESPONSIBILITIES It is important to know exactly how much and how often to take the opioid pain medications you are prescribed. Never take opioids in higher amounts or more often than prescribed. Do not combine opioids with alcohol or other drugs that cause drowsiness, such as benzodiazepines, also known as benzos, including diazepam and alprazolam, muscle relaxants or sleep aids. Never sell or share prescription opioids. This is illegal. Store opioids in a secure place and out of reach of others (including children, family, friends and visitors). The last page(s) of this document has been signed and retained as a CHART COPY Signatures Patient Education Materials Abdominal Pain, Unknown Cause, (Female) Medication Leaflets My discharge plan and instructions have been reviewed and explained to me and I,NATASHA PRASAD understand my current condition and have read and understand these discharge instructions. I have received a written copy of the plan/instructions. If I have questions, I am aware that I should contact my doctor. 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 Multiplanar reformatted images are provided for review. Automated exposure control, iterative reconstruction, and/or weight based adjustment of the mA/kV was utilized to reduce the radiation dose to as low as reasonably achievable. COMPARISON: None HISTORY: ORDERING SYSTEM PROVIDED HISTORY: Reason for Exam: abdominal pain FINDINGS: Unremarkable liver. Cholelithiasis. Mildly heterogeneous appearance of the spleen suspected to relate to contrast timing. Splenomegaly. Adrenal glands and pancreas appear unremarkable. Unremarkable kidneys, ureters, and urinary bladder. The visualized esophagus, stomach, and duodenum are unremarkable. The visualized aorta is nonaneurysmal. The GI tract exhibits no acute abnormalities. Normal appendix. No pathologically enlarged retroperitoneal, mesenteric, or pelvic lymph nodes are identified. There is no free intraperitoneal air or fluid. The uterus is within normal limits. Unremarkable adnexa. No acute or suspicious soft tissue or bony abnormality. Mild scattered anasarca. There is skin thickening at the umbilicus. Provided images of the lower thorax demonstrate minimal bibasilar atelectasis. IMPRESSION: Splenomegaly. Cholelithiasis. Apparent umbilical region skin thickening although correlate with physical exam. I have personally reviewed the images of this examination and agree with the resident's findings and interpretation. Interpreted by: Joseph Starkey Preliminary Report By: Yonathan Mendzoa Electronically signed By Jospeh Starkey Dictated Date: 08/18/2023 8:58:12 PM Prelim Date: 08/18/2023 9:05:13 PM Sign Date: 08/18/2023 9:09:18 PM Ordering Provider: ELISAB[facility] note Note Date & Type Note Facility Evaluation + Plan note No data available for this section [facility] Summary Purpose Family History No Family History Records Found Advance Directives No Advanced Directives Records Found Additional Source Comments INFORMATION SOURCE (unrecogn ized section and content) FOR RECORDS PERTAINING TO PATIENTS WHO ARE OR HAVE BEEN ENROLLED IN A CHEMICAL DEPENDENCY/SUBSTANCEABUSE PROGRAM, SOME INFORMATION MAY BE OMITTED. This clinical summary was aggregated from multiple sources. Caution should be exercised in using it in the provision of clinical care. This summary normalizes information from multiple sources, and as a consequence, information in this document may materially change the coding, format and clinical context of patient data. In addition, data may be omitted in some cases. CLINICAL DECISIONS SHOULD BE BASED ON THE PRIMARY CLINICAL RECORDS. [employer] provides no warranty or guarantee of the accuracy or completeness of information in this document.
== END 2023-09-06 21:37 | disposition home or self-care (01) ==
PROVIDERS: Emergency Provider Emergency Medicine; PCP Nurse Practitioner Family; Visit Provider Emergency Medicine
DX: T23.202A Burn of second degree of left hand, unspecified site, initial encounter (principal); X58.XXXA Exposure to other specified factors, initial encounter
CPT/HCPCS: 99282

== ENCOUNTER 2024-01-22 11:16 | Emergency (ER) | payer MEDICAID, SELFPAY ==
[2024-01-22 11:16] VITALS: BP 145/95; PULSE 96; RESP 14; TEMP 36.1; O2SAT 98; BMI 85.8
[2024-01-22 11:28] VITALS: O2SAT 96
--- NOTE | 2024-01-22 12:05 | ED.VIS.DYS ---
HPI History of Present Illness Chief Complaint: Shortness of Breath PFSH PFS Medical History Alpha thalassemia trait Ankle fracture, left Anxiety G6PD deficiency Iron deficiency anemia due to chronic blood loss Ovarian cyst Splenomegaly Home Medications ?Medication ?Instructions ?Recorded ?Last Taken ?Type hydroxyzine HCl 25 mg tablet 25 mg PO TID PRN anxiety #30 tabs 11/12/22 Unknown Rx desvenlafaxine succinate 50 mg 50 mg PO DAILY 03/18/23 Unknown History tablet,extended release 24 hr (Pristiq) lamotrigine 25 mg tablet 25 mg PO DAILY 03/28/23 Unknown History bacitracin 500 unit/gram topical 1 applic topical BID 5 days #14 09/06/23 Unknown Rx ointment grams Allergy/AdvReac Type Severity Reaction Status Date / Time Penicillins (PCN) Allergy Laryngospas Verified 01/22/24 11:17 ms Family History Mother Diabetes Hypertension Grandmother Cancer possibly SCLC, mets to brain; maternal Surgical History History of History of wisdom tooth extraction Social History Smoking Status: Never smoker alcohol intake: never substance use type: does not use EXAM Physical Exam Const Vital Signs: 01/22/24 11:16 01/22/24 11:28 01/22/24 13:16 Temperature 96.9 F L Temperature Source Temporal Pulse Rate 96 78 Respiratory Rate 14 18 Respiratory Effort Normal Respiratory Depth Normal Respiratory Pattern Normal Blood Pressure 145/95 H 138/70 H Blood Pressure Mean 111 92 Pulse Ox 98 99 Oxygen Delivery Method Room Air Room Air Room Air MDM MDM MDM Narrative Medical decision making narrative: HISTORY OF PRESENT ILLNESS: 23-year-old female presents with shortness of breath, sore throat and runny nose. Notes recent sick contact and her son. Notes a friend came home from travel and had the flu. States shortly after she started experiencing symptoms which included shortness of breath, sore throat and runny nose. She denies any shortness of breath or chest pain now. Does note a cough that is nonproductive. She denies any bleeding diathesis. Denies any leg swelling. Denies any fever. She knows she does not take any medication for her complaints The patient denies recent surgery in the last 4 weeks or immobilization in the last 3 days, denies previous diagnosis of DVT or PE, hemoptysis, unilateral leg swelling or malignancy with treatment the last 6 months or palliative. No estrogen use noted. REVIEW OF SYSTEMS: Pertinent positives: Shortness of breath, sore throat and runny nose Pertinent negatives: Leg swelling, chest pain PHYSICAL EXAM: Nursing triage notes reviewed, Vital signs reviewed Constitutional: please see mdm HENT: MMM, no trismus, no submandibular edema, no drooling, patient controlling secretions, no posterior oropharyngeal swelling, uvula midline, Eyes: Pupils equal round and reactive to light, Extraocular muscles intact Neck: No stridor, no JVD, full neck ROM, no thyromegaly, left-sided lymphadenopathy noted, no fluctuant masses, no significant TTP along the path of the internal jugular vein Lungs: Clear to auscultation, No wheezing or rales. No increased work of breathing, no conversational dyspnea, no accessory muscle use, no nasal flaring. No respiratory distress noted Heart: Regular rate and rhythm, No murmurs, No rubs and No gallops, 2+ distal pulses (radial, femoral, posterior tibial) in all extremities Abdomen: Soft, there is no tenderness, rigidity, rebound or guarding, no obvious peritoneal signs, no palpable pulsatile abdominal masses, no auscultated abdominal bruit : No CVAT Extremities: No edema Neuro: No focal neurological deficits, cranial nerves II through XII intact, 5/5 strength in all extremities. Intact sensation to light touch in all extremities, 2+ reflexes bilateral patella tendons. Normal gait. No ataxia. Skin: No rash or lesions noted MEDICAL DECISION MAKING: Chief Complaint: Shortness of breath, runny nose External records reviewed: No recent advanced imaging of the chest. Factors affecting care: G6PD Social determinants of health: none History obtained from others: none Consults: none [facility] Narrative: The patient was hemodynamically stable, afebrile, nontoxic-appearing. Exam without focal HEENT abnormalities including signs of Isaac angina, CANOE INSPECTOR RPA. Lungs were clear without focal consolidation to suggest pneumonia I considered the following differential diagnosis: Viral URI, bacterial pneumonia, CANOE INSPECTOR, RPA, Isaac angina, Lemierre's syndrome I obtained COVID flu swab as well as strep swab. Gave symptomatic anti-inflammatories and for ibuprofen and Tylenol for symptomatic relief. ALL IMAGES (IF OBTAINED) HAVE BEEN PERSONALLY REVIEWED AND INTERPRETED BY MYSELF. Rapid strep and COVID and flu test were negative. I suspect the patient is suffering from a viral URI. She had no hypoxia, fever or focal lung findings to suggest pneumonia. She was given Tylenol and ibuprofen encouraged continue at home. Strict return precautions were discussed The patient and/or family, caregivers express understanding. The patient and/or family, caregivers agrees with the plan. Shared decision making: I will have a discussion with the patient and or visitors regarding risk/benefits of further testing or admission. They will be made aware of of the risk/benefits inherent in this decision they will be given the opportunity to voice understanding. Total critical care time today provided was at least 0 minutes. This excludes separately billable procedures. Critical care time (if documented) is secondary to the patient having high probability of clinically significant/life threatening deterioration in the patient's condition which required my urgent intervention. Impression: 1. Viral URI 2. Cough Dispo: Discharge home This note was generated with [employer] dictation software. It may contain incorrect words, spelling, and punctuation that were not noted in review of the chart prior to signing. Discharge Plan Triage Chief Complaint: Shortness of Breath ED Provider: [place] Dx/Rx/DC Orders Prescriptions: No Action desvenlafaxine succinate [Pristiq] 50 mg tablet extended release 24 hr 50 mg PO DAILY lamotrigine 25 mg tablet 25 mg PO DAILY hydroxyzine HCl 25 mg tablet 25 mg PO TID PRN (Reason: anxiety) Qty: 30 0RF bacitracin 500 unit/gram ointment 1 applic topical BID 5 Days Qty: 14 0RF Primary Care Provider: Care Physician,No Primary Referrals: Care Physician,No Primary [Primary Care Provider] - Print Language: Upper Sorbian
[2024-01-22] MEDS: Ibuprofen 200 MG Tablet 400 MG PO (12:37)
[2024-01-22] MEDS: Acetaminophen 325 MG Tablet 650 MG PO (12:38)
[2024-01-22 13:16] VITALS: BP 138/70; PULSE 78; RESP 18; O2SAT 99
== END 2024-01-22 13:59 | disposition home or self-care (01) ==
PROVIDERS: Emergency Provider Emergency Medicine; Visit Provider Emergency Medicine
DX: J06.9 Acute upper respiratory infection, unspecified (principal)
CPT/HCPCS: 87631; 87651; 99283

== ENCOUNTER 2024-04-26 14:06 | Emergency (ER) | payer MEDICAID, SELFPAY ==
[2024-04-26 14:07] VITALS: BP 171/120; PULSE 70; RESP 16; TEMP 36.1; O2SAT 100; BMI 38.7
--- NOTE | 2024-04-26 14:56 | CT_ITS ---
STUDY: CT ABDOMEN AND PELVIS WITH CONTRAST REASON FOR EXAM: Female, 24 years old. Abdominal pain-RUQ RADIATION DOSAGE (If Supplied By Facility): CTDIvol = ( 17.07 ) mGy, DLP = ( 1342.35 ) mGycm TECHNIQUE: IV 100mL Isovue-370 was administered. Transaxial images were obtained from the dome of the diaphragm to the symphysis pubis. Multiplanar coronal and sagittal images were reformatted. The protocol utilizes one or more of the following dose reduction techniques: automated exposure control, adjustment of mA and/or kV according to patient size,and/or use of iterative reconstruction technique. COMPARISON: Prior study dated: 03/01/2023 FINDINGS: The visualized lung bases are unremarkable. The visualized portions of the heart are within normal limits. Normal liver. Gallstones are seen with probable mild pericholecystic fluid.. Splenomegaly. The spleen measures about 16 cm in length. Normal pancreas. Normal bilateral adrenal glands. Normal visualized stomach. Normal in caliber small bowel loops. Fecal retention. No evidence of acute diverticulitis. The appendix is questionably visualized. Persistent. No inflammatory changes are seen. Normal abdominal aorta. Few small mesenteric nodes. No evidence of adenopathy. Normal right kidney. Normal left kidney. Normal urinary bladder. No pelvic mass. Normal abdominal wall. Normal osseous structures. CT/Abdomen/Pelvis W IV Cont ONLY IMPRESSION: 1. Cholelithiasis with questionable mild pericholecystic fluid. Correlation with gallbladder ultrasound is recommended. 2. Splenomegaly. 3. Otherwise no focal acute inflammatory process. Electronically Signed: Eros Tapia MD at 15:56 EDT ,
--- OUTSIDE RECORDS SUMMARY | 2024-04-26 14:56 | XMS RPT_ITS | CCD ---
Author Organization [facility] Inform ion Partnership [facility] Care Team Providers Care Pharmaceutical Sales Representative Name Role Phone ELISABETH DAVID DO Attending Unavailable MATTHEW GOOD, AZAM Tejada Attending Unavail able SOCO JACKSON, DR RODOLFO Mejia Attending Unavailable NIYAH MANCINI Attending Unavailable Allergies Allergy Classification Reported Allergen(s) Allergy Type Date of Onset Reaction(s) Facility (2 sources) Penicillin; Translations: [penicillin] Drug Allergy Anaphylaxis (disorder) [facility] Medications Current Medications Medication Drug Class(es) Dates Sig (Normalized) Sig (Original) famotidine 20 mg oral tablet (2 sources) Histamine-2 Receptor Antagonist Start: 08-18-2023 Pepcid 20 [...] Translations: [Unspecified abdominal pain] Onset: 08-18-2023 Episodic Viral infection (1 source) Viral disease; Translations: [Other viral agents as the cause of diseases classified elsewhere] Onset: 10-13-2023 Episodic Results Test Name Value Interpretation Reference Range Facility .Auto DiffOrdered By: SYSTEM SYSTEM on 08-18-2023 Basophil, Absolute 0.0 103/mcL Normal 0.0-0.2 AO Wo rkflow SS Comment on above: Performed By: #### C BC, ADIFF, LIP, GFR, CMP, ANEU, BRITTANY #### [address] [address] Basophils/100 WBC (Bld) 0.7 % Normal 0.0-2.5 AO Workflow SS Comment on above: Performed By: #### C BC, ADIFF, LIP, GFR, CMP, ANEU, W #### [address] [address] Eosinophil, Absolute 0.2 103/mcL Normal 0.0-0.4 AO Workflow SS Comment on above: Performed By: #### C BC, ADIFF, LIP, GFR, CMP, ANEU, BRITTANY #### [address] [address] Eosinophils/100 WBC (Bld) 3.5 % Normal 0.0-7.0 AO Workflow SS Comment on above: Performed By: #### C BC, ADIFF, LIP, GFR, CMP, ANEU, BRITTANY #### [address] [address] Lymphocyte, Absolute 2.5 103/mcL Normal 0.8-3.9 AO Workflow SS Comment on above: Performed By: #### C BC, ADIFF, LIP, GFR, CMP, ANEU, RBITTANY #### [address] [address] Lymphocytes/100 WBC (Bld) 37.2 % Normal 10.0-50.0 AO Workflow SS Comment on above: Performed By: #### C BC, ADIFF, LIP, GFR, CMP, ANEU, BRITTANY #### [address] [address] Monocyte, Absolute 0.4 103/mcL Normal 0.2-1.0 AO Wo rkflow SS Comment on above: Performed By: #### C BC, ADIFF, LIP, GFR, CMP, ANEU, W #### [address] [address] Monocytes/100 WBC (Bld) 6.6 % Normal 1.7-13.0 AO Workflow SS Comment on above: Performed By: #### C BC, ADIFF, LIP, GFR, CMP, BRITTANY URENA #### [address] [address] Neutrophils/100 WBC (Bld) 52.0 % Normal 37.0-80.0 AO Workflow SS Comment on above: Performed By: #### C BC, ADIFF, LIP, GFR, CMP, BRITTANY URENA #### [address] [address] .GFRon 08-18-2023 GFR 109 ml/min/1.73sqm Normal [facility] ([place]) Comment on above: Result Comment: GFR Population mean for , Non- Americans Ages 20-29 = 116 mL/min/1.73 sq.m. Ages 30-39 = 107 mL/min/1.73 sq.m. Ages 40-49 = 99 mL/min/1.73 sq.m. Ages 50-59 = 93 mL/min/1.73 sq.m. Ages 60-69 = 85 mL/min/1.73 sq.m. Ages 70+ = 75 mL/min/1.73 sq.m. Chronic Kidney Disease: Less than 60 mL/min/1.73 square meters End Stage Renal Disease: Less than 15 mL/min/1.73 square meters Performed By: #### C BC, ADIFF, LIP, GFR, CMP, BRITTANY URENA #### [address] [address] GFR Non- 90 ml/min/1.73sqm Normal [facility] ([place]) Comment on above: Result Comment: GFR Population mean for , Non- Americans Ages 20-29 = 116 mL/min/1.73 sq.m. Ages 30-39 = 107 mL/min/1.73 sq.m. Ages 40-49 = 99 mL/min/1.73 sq.m. Ages 50-59 = 93 mL/min/1.73 sq.m. Ages 60-69 = 85 mL/min/1.73 sq.m. Ages 70+ = 75 mL/min/1.73 sq.m. Chronic Kidney Disease: Less than 60 mL/min/1.73 square meters End Stage Renal Disease: Less than 15 mL/min/1.73 square meters Performed By: #### C BC, ADIFF, LIP, GFR, CMP, ANEUBRITTANY #### [place] [id number] .MDWon 08-18-2023 Monocyte Distribution Width 18.10 Normal 0.00-20.00 [facility] ([place]) Comment on above: Result Comment: For ED adult patients suspected of sepsis, MDW<=20.0 does not rule out sepsis or risk of sepsis Performed By: #### C BC, ADIFF, LIP, GFR, CMP, ANEUBRITTANY #### [place] [address] .NEUABSOrdered By: SYSTEM [place] STEM on 08-18-2023 Neutrophil, Absolute 3.5 103/mcL Normal 2.9-6.2 AO Workflow SS Comment on above: Performed By: #### C BC, ADIFF, LIP, GFR, CMP, ANEUBRITTANY #### [place] [address] CBCOrdered By: [employer] SYSTEM on 08-18-2023 Erythrocyte distribution width (RBC) [Ratio] 14.1 % Normal 11.5-14.5 AO Workflow SS Comment on above: Performed By: #### C BC, ADIFF, LIP, GFR, CMP, ANEUBRITTANY #### [place] [address] Hematocrit (Bld) [Volume fraction] 40.6 % Normal 37.0-47.0 AO Workflow SS Comment on above: Performed By: #### C BC, ADIFF, LIP, GFR, CMP, ANEUBRITTANY #### [place] [id number] MCH (RBC) [Entitic mass] 25.8 pg Low 27.0-31.2 AO Workflow SS Comment on above: Performed By: #### C BC, ADIFF, LIP, GFR, CMP, ANEUBRITTANY #### [place] [address] MCHC 32.5 G/dL Low 33.0-37.0 AO Workflow SS Comment on above: Performed By: #### C BC, ADIFF, LIP, GFR, CMP, ANEUMDW #### [address] [address] MCV (RBC) [Entitic vol] 79.5 fL Low 80.0-94.0 AO Workflow SS Comment on above: Performed By: #### C BC, ADIFF, LIP, GFR, CMP, ANEU, W #### [address] [address] Platelet mean volume (Bld) [Entitic vol] 10.4 fL Normal 7.4-10.4 AO Workflow SS Comment on above: Performed By: #### C BC, ADIFF, LIP, GFR, CMP, ANEUMDW #### [address] [address] CBCon 08-18-2023 Hgb 13.2 G/dL Normal 12.0-16.0 [facility] ([place]) Comment on above: Performed By: #### C BC, ADIFF, LIP, GFR, CMP, ANEUBRITTANY #### [address] [address] Platelet 254 10 3/mcL Normal 130-400 [facility] ([place]) Comment on above: Performed By: #### C BC, ADIFF, LIP, GFR, CMP, ANEU, W #### [address] [address] RBC 5.11 10 6/mcL Normal 4.20-5.40 [facility] ([place]) Comment on above: Performed By: #### C BC, ADIFF, LIP, GFR, CMP, ANEUMDW #### [address] [address] WBC 6.7 10 3/mcL Normal 4.6-10.8 [facility] ([place]) Comment on above: Performed By: #### C BC, ADIFF, LIP, GFR, CMP, ANEUMDW #### [address] [address] CMPon 08-18-2023 Albumin Level 3.3 G/dL Low 3.5-5.0 [facility] ([place]) Comment on above: Performed By: #### C BC, ADIFF, LIP, GFR, CMP, BRITTANY URENA #### [address] [address] ALT [Catalytic activity/Vol] 48 U/L Normal 14-59 [facility] ([place]) Comment on above: Performed By: #### C BC, ADIFF, LIP, GFR, CMP, BRITTANY URENA #### [address] [address] AST [Catalytic activity/Vol] 17 U/L Normal 10-40 [facility] ([place]) Comment on above: Performed By: #### C BC, ADIFF, LIP, GFR, CMP, BRITTANY URENA #### [address] [address] Bili Total 0.3 mg/dL Normal 0.2-1.0 [facility] ([place]) Comment on above: Result Comment: Use of this assay is not recommended for patients undergoing treatment with eltrombopag due to the potential for falsely elevated results. Performed By: #### C BC, ADIFF, LIP, GFR, CMP, BRITTANY URENA #### [address] [address] BUN/Creatinine Ratio 9 ratio Normal 7-27 [facility] ([place]) Comment on above: Performed By: #### C BC, ADIFF, LIP, GFR, CMP, BRITTANY URENA #### [address] [address] Total Protein 6.8 G/dL Normal 6.4-8.2 [facility] ([place]) Comment on above: Performed By: #### C BC, ADIFF, LIP, GFR, CMP, BRITTANY URENA #### [address] [address] CMPOrdered By: SYSTEM SYSTEM on 08-18-2023 Albumin/Globulin [Mass ratio] 0.9 {ratio} Low 1.1-2.5 AO ADM SS Comment on above: Performed By: #### C BC, ADIFF, LIP, GFR, CMP, BRITTANY URENA #### [place] [address] ALP [Catalytic activity/Vol] 96 U/L Normal 40-135 AO ADM SS Comment on above: Performed By: #### C BC, ADIFF, LIP, GFR, CMP, BRITTANY URENA #### [address] [address] Calcium [Mass/Vol] 8.6 mg/dL Normal 8.4-10.2 AO ADM SS Comment on above: Performed By: #### C BC, ADIFF, LIP, GFR, CMP, BRITTANY URENA #### [place] [address] Chloride [Moles/Vol] 104 mmol/L Normal 98-107 AO A DM SS Comment on above: Performed By: #### C BC, ADIFF, LIP, GFR, CMP, BRITTANY URENA #### [place] [address] CO2 [Moles/Vol] 30 mmol/L High 22-29 AO ADM SS Comment on above: Performed By: #### C BC, ADIFF, LIP, GFR, CMP, BRITTANY URENA #### [place] [address] Creatinine [Mass/Vol] 0.79 mg/dL Normal 0.55-1.02 AO ADM SS Comment on above: Performed By: #### C BC, ADIFF, LIP, GFR, CMP, BRITTANY URENA #### [place] [address] Electrolyte Balance 8.0 mEq/L Normal 4.0-15.0 AO AD M SS Comment on above: Performed By: #### C BC, ADIFF, LIP, GFR, CMP, BRITTANY URENA #### [place] [address] Globulin 3.5 G/dL Normal AO ADM SS Comment on above: Performed By: #### C BC, ADIFF, LIP, GFR, CMP, BRITTANY URENA #### [address] [address] Glucose [Mass/Vol] 94 mg/dL Normal 70-105 AO ADM SS Comment on above: Performed By: #### C BC, ADIFF, LIP, GFR, CMP, ANEU, MDW #### [place] [address] Potassium [Moles/Vol] 4.0 mmol/L Normal 3.5-5.1 AO ADM SS Comment on above: Performed By: #### C BC, ADIFF, LIP, GFR, CMP, ANEU, MDW #### [address] [address] Sodium [Moles/Vol] 142 mmol/L Normal 136-145 AO ADM SS Comment on above: Performed By: #### C BC, ADIFF, LIP, GFR, CMP, ANEU, MDW #### [address] [address] Urea nitrogen [Mass/Vol] 7 mg/dL Normal 7-18 AO ADM SS Comment on above: Performed By: #### C BC, ADIFF, LIP, GFR, CMP, ANEU, MDW #### [address] [address] [address] ABD/PELVIS W/ IV CONTRAST ONLYon 08-18-2023 CT ABD/PELVIS W/ IV CONTRAST ONLY ORIGINAL EXAMINATION: CT OF THE ABDOMEN AND [...] by: Joseph Starkey Preliminary Report By: Yonathan Mendoza Electronically signed By Joseph Starkey Dictated Date: 08/18/2023 8:58:12 PM Prelim Date: 08/18/2023 9:05:13 PM Sign Date: 08/18/2023 9:09:18 PM Ordering Provider: ELISABETH DAVID [facility] ([place]) LABORATORYOrdered By: SYSTEM SYSTEM on 08-18-2023 Albumin BCP dye [Mass/Vol] 3.3 G/dL Low 3.5 - 5.0 G/dL AO ADM SS ALT With P-5'-P [Catalytic activity/Vol] 48 U/L Normal 14 - 59 U/L AO ADM SS AST With P-5'-P [Catalytic activity/Vol] 17 U/L Normal 10 - 40 U/L AO ADM SS Bilirubin [Mass/Vol] 0.3 mg/dL Normal 0.2 - 1 .0 mg/dL AO ADM SS Comment on above: Interpretive Data: U se of this assay is not recommended for patients undergoing treatment with eltrombopag due to the potential for falsely elevated results. GFR/1.73 sq M.predicted among blacks MDRD (S/P/Bld) [Vol rate/Area] 109 ml/min/1.73sqm Invalid Interpretation Code AO Chemistry S Comment on above: Interpretive Data: GFR Population mean for , Non- Americans Ages 20-29 = 116 mL/min/1.73 sq.m. Ages 30-39 = 107 mL/min/1.73 sq.m. Ages 40-49 = 99 mL/min/1.73 sq.m. Ages 50-59 = 93 mL/min/1.73 sq.m. Ages 60-69 = 85 mL/min/1.73 sq.m. Ages 70+ = 75 mL/min/1.73 sq.m. Chronic Kidney Disease: Less than 60 mL/min/1.73 square meters End Stage Renal Disease: Less than 15 mL/min/1.73 square meters GFR/1.73 sq M.predicted among non-blacks MDRD (S/P/Bld) [Vol rate/Area] 90 ml/min/1.73sqm Invalid Interpretation Code AO Chemistry S Comment on above: Interpretive Data: GFR Population mean for , Non- Americans Ages 20-29 = 116 mL/min/1.73 sq.m. Ages 30-39 = 107 mL/min/1.73 sq.m. Ages 40-49 = 99 mL/min/1.73 sq.m. Ages 50-59 = 93 mL/min/1.73 sq.m. Ages 60-69 = 85 mL/min/1.73 sq.m. Ages 70+ = 75 mL/min/1.73 sq.m. Chronic Kidney Disease: Less than 60 mL/min/1.73 square meters End Stage Renal Disease: Less than 15 mL/min/1.73 square meters Hemoglobin (Bld) [Mass/Vol] 13.2 G/dL Normal 12.0 - 16.0 G/dL AO Workflow SS Lipase [Catalytic activity/Vol] 18 U/L Normal 16 - 77 U/L AO ADM SS Monocyte distribution width Auto (Bld) [Entitic vol] 18.10 1 Normal 0.00 - 20.00 AO Workflow SS Comment on above: Result Comment: For ED adult patients suspected of sepsis, MDW<=20.0 does not rule out sepsis or risk of sepsis Platelets (Bld) [#/Vol] 254 103/mcL Normal 130 - 400 10^3/mcL AO Workflow SS Protein [Mass/Vol] 6.8 G/dL Normal 6.4 - 8.2 G/dL AO ADM SS RBC (Bld) [#/Vol] 5.11 106/mcL Normal 4.20 - 5.4 0 10^6/mcL AO Workflow SS Urea nitrogen/Creatinine [Mass ratio] 9 ratio Normal 7 - 27 ratio AO ADM SS WBC (Bld) [#/Vol] 6.7 103/mcL Normal 4.6 - 10.8 10^3/mcL AO Workflow SS LABORATORYOrdered By: Paresh Payton on 08-18-2023 Appearance (U) Clear (08/18/23 8:00 PM) Normal Clear AO Auto Urine SS Bilirubin Ql (U) Negative (08/18/23 8:00 PM) Normal Negative AO Auto Urine SS Color (U) Yellow (08/18/23 8:00 PM) Normal AO Auto Urine SS Glucose Test strip (U) [Mass/Vol] Negative Normal Negative AO Auto Urine SS HCG ( test) Ql Negative (08/18/23 8:00 PM) Normal AO Manual Urine SS Hemoglobin Auto test strip (U) [Mass/Vol] Negative (08/18/23 8:00 PM) Normal Negative AO Auto Urine SS UA Leuk Est Negative (08/18/23 8:00 PM) Normal Negative AO Auto Urine SS UA Nitrite Negative (08/18/23 8:00 PM) Normal Negative AO Auto Urine SS UA pH 6.0 (08/18/23 8:00 PM) Normal 5.0 - 8.0 AO Auto Urine SS UA Spec Grav 1.015 (08/18/23 8:00 PM) Normal 1.015-1.025 AO Auto Urine SS UA Specimen Type Clean Catch (08/18/23 8:00 PM) Normal AO Auto Urine SS UA Urobilinogen 0.2 E.U./dL Normal 0.2-1.0 AO Auto Urine SS LIPon 08-18-2023 Lipase Level 18 U/L Normal 16-77 [facility] ([place]) Comment on above: Performed By: #### C BC, ADIFF, LIP, GFR, CMP, ANEU, MDW #### [place] [address] PREGUon 08-18-2023 HCG ( test) Ql (U) Negative Normal [facility] ([place]) Comment on above: Performed By: #### U A, PREGU #### [address] [address] PREGUOrdered By: Bere crystal on 08-18-2023 test (u) int Not detected Invalid Interpretation Code AO Manual Urine SS Comment on above: Performed By: #### U A, PREGU #### [place] [id number] UAon 08-18-2023 Color (U) Yellow Normal [facility] ([place]) Comment on above: Performed By: #### U A, PREGU #### [address] [address] Glucose (U) [Mass/Vol] Negative Normal Negative [facility] ([place]) Comment on above: Performed By: #### U A, PREGU #### [address] [address] UA Appear Clear Normal Clear [facility] ([place]) Comment on above: Performed By: #### U A, PREGU #### [place] [address] UA Blood Negative Normal Negative [facility] ([place]) Comment on above: Performed By: #### U A, PREGU #### [place] [address] UA Leuk Est Negative Normal Negative [facility] ([place]) Comment on above: Performed By: #### U A, PREGU #### [place] [id number] UA Nitrite Negative Normal Negative [facility] ([place]) Comment on above: Performed By: #### U A, PREGU #### [address] [address] UA pH 6.0 Normal 5.0 - 8.0 [facility] ([place]) Comment on above: Performed By: #### U A, PREGU #### [address] [address] UA Spec Grav 1.015 Normal 1.015-1.025 [facility] ([place]) Comment on above: Performed By: #### U A, PREGU #### [place] [id number] UA Specimen Type Clean Catch Normal [facility] ([place]) Comment on above: Performed By: #### U A, PREGU #### [place] [address] UA Urobilinogen 0.2 E.U./dL Normal 0.2-1.0 [facility] ([place]) Comment on above: Performed By: #### U A, PREGU #### [address] [address] Urobilinogen (U) [Mass/Vol] Negative Normal Negative [facility] ([place]) Comment on above: Performed By: #### U A, PREGU #### [place] [address] UAOrdered By: Bere zeng on 08-18-2023 Ketones Ql (U) Negative Normal Negative AO Auto Ur ine SS Comment on above: Performed By: #### U A, PREGU #### [place] [address] UA Protein Negative Normal Negative AO Auto Urine SS Comment on above: Performed By: #### U A, PREGU #### [place] [id number] Vital Signs Date Time Vital Sign Value Performing Clinician Zoraida wagoner 10-13-2023 22:13-0400 Body temperature 97.7 [degF] AZAM CASTRO MD [facility] 10-13-2023 22:13-0400 Diastolic Blood Pressure Non-Invasive 75 mm[Hg] AZAM CASTRO MD [facility] 10-13-2023 22:13-0400 Heart rate 84 /min AZAM CASTRO MD [facility] 10-13-2023 22:13-0400 Respiratory rate 16 /min AZAM CASTRO MD [facility] 10-13-2023 22:13-0400 Systolic Blood Pressure Non-Invasive 140 mm[Hg] AZAM CASTRO MD [facility] 08-18-2023 20:15-0500 Diastolic Blood Pressure Non-Invasive 66 mm[Hg] ELISABETH FROMENRIQUET DO [facility] 08-18-2023 20:15-0500 Heart rate 51 /min ELISABETH FROMMELT DO [facility] 08-18-2023 20:15-0500 Respiratory rate 18 /min ELISABETH FROMMELT DO [facility] 08-18-2023 20:15-0500 Systolic Blood Pressure Non-Invasive 123 mm[Hg] ELISABETH ELT DO [facility] 08-18-2023 19:42-0500 Body temperature 97.88 [degF] ELISABETH العراقيMELT DO [facility] 08-18-2023 19:42-0500 Diastolic Blood Pressure Non-Invasive 87 mm[Hg] ELISABETH ELT DO [facility] 08-18-2023 19:42-0500 Heart rate 68 /min ELISABETH ELT DO [facility] 08-18-2023 19:42-0500 Respiratory rate 18 /min ELISABETH ELT DO [facility] 08-18-2023 19:42-0500 Systolic Blood Pressure Non-Invasive 140 mm[Hg] ELISABETH ELT DO [facility] Encounters Encounter Date Encounter Type Care Provider Facility Start: 10-14-2023 End: 10-14-2023 Emergency department patient visit AZAM CASTRO MD Facility:B Start: 10-13-2023 End: 10-13-2023 Emergency department patient visit AZAM CASTRO MD [facility] Start: 08-18-2023 End: 08-18-2023 Emergency department patient visit ELISABETH DAVID DO Facility:[facility] Start: 08-18-2023 End: 08-18-2023 Emergency department patient visit ELISABETH DAVID DO [facility] Start: 11-20-2022 End: 11-20-2022 Emergency department patient visit NIYAH MANCINI Facility:B Start: 11-17-2022 End: 11-17-2022 Emergency department patient visit DR RODOLFO WAN DO Facility:B Payers Date Payer Category Payer Unknown [id number] 2022 Self-pay 2000 Unknown [id number] [id number] 2000 Unknown [id number] [id number] 2000 Unknown [id number] [id number] 2000 Unknown [id number] [id number] Social History Date Type Detail Facility Tobacco smoking status No Smoking Status Entered [facility] Sex Assigned At Female [facility] Functional Status Date Assessment Result Facility 10-13-2023 Functional Status ID band on, Allergy Band on, Call device within reach, Bed in low position, Wheels locked, Upper/Half-Length side-rails up, Phone within reach, Bedside Cart Locked, Visitor at bedside [facility] 08-18-2023 Functional Status Independent [facility] 08-18-2023 Functional Status Standard Safet y ID band on, Allergy Band on, Call device within reach, Bed in low position, Wheels locked, Upper/Half-Length side-rails up, Safety level maintained [facility] Mental Status Date Assessment Result Facility 10-13-2023 Mental Status Oriented x 4 [facility] 08-18-2023 Mental Status Orientation Oriented x 4 [facility] 08-18-2023 Mental Status [facility] Discharge instructions 10-14-2023 Note Date & Type Note Facility 10-14-2023 Hospital Discharg e instructions Patient Education 10/13/2023 22:19:30 Viral Syndrome (Adult) Viral Syndrome (Adult) A viral illness may cause a number of symptoms such as fever. Other symptoms depend on the part of the body that the virus affects. If it settles in your nose, throat, and lungs, it may cause cough, sore throat, congestion, runny nose, headache, earache and other ear symptoms, or shortness of breath. If it settles in your stomach and intestinal tract, it may cause nausea, vomiting, cramping, and diarrhea. Sometimes it causes generalized symptoms like aching all over, feeling tired, loss of energy, or loss of appetite. A viral illness usually lasts anywhere from several days to several weeks, but sometimes it lasts longer. In some cases, a more serious infection can look like a viral syndrome in the first few days of the illness. You may need another exam and additional tests to know the difference. Watch for the warning signs listed below for when to seek medical advice. Home care Follow these guidelines for taking care of yourself at home: If symptoms are severe, rest at home for the first 2 to 3 days. Stay away from cigarette smoke - both your smoke and the smoke from others. You may use awpt-wjt-wvktyeb acetaminophen or ibuprofen for fever, muscle aching, and headache, unless another medicine was prescribed for this. If you have chronic liver or kidney disease or ever had a stomach ulcer or gastrointestinal bleeding, talk with your healthcare provider before using these medicines. No one who is younger than 18 and ill with a fever should take aspirin. It may cause severe disease or . Your appetite may be poor, so a light diet is fine. Avoid dehydration by drinking 8 to 12, 8-ounce glasses of fluids each day. This may include water; orange juice; lemonade; apple, grape, and cranberry juice; clear fruit drinks; electrolyte replacement and sports drinks; and decaffeinated teas and coffee. If you have been diagnosed with a kidney disease, ask your healthcare provider how much and what types of fluids you should drink to prevent dehydration. If you have kidney disease, drinking too much fluid can cause it build up in the your body and be dangerous to your health. Bkam-qmb-zkhnazz remedies won't shorten the length of the illness but may be helpful for symptoms such as cough, sore throat, nasal and sinus congestion, or diarrhea. Don't use decongestants if you have high blood pressure. Follow-up care Follow up with your healthcare provider if you do not improve over the next week. Call 911 Call 911 if any of the following occur: Convulsion Feeling weak, dizzy, or like you are going to faint Chest pain, or more than mild shortness of breath When to seek medical advice Call your healthcare provider right away if any of these occur: Cough with lots of colored sputum (mucus) or blood in your sputum Chest pain, shortness of breath, wheezing, or trouble breathing Severe headache; face, neck, or ear pain Severe, constant pain in the lower right side of your belly (abdominal) Continued vomiting (can t keep liquids down) Frequent diarrhea (more than 5 times a day); blood (red or black color) or mucus in diarrhea Feeling weak, dizzy, or like you are going to faint Extreme thirst Fever of 100.4 F (38 C) or higher, or as directed by your healthcare provider [phone] [employer]. [address] [place] [address]. All rights reserved. This information is not intended as a substitute for professional medical care. Always follow your healthcare professional's instructions. Follow Up Care 10/13/2023 22:00:31 With:Follow up with primary care provider Address:Unknown When:2-4 days [facility] Clinical Note 10-13-2023 Note Date & Type Note Facility 10-13-2023 Note Discharge Instructions Thank you for allowing [place] to assist you with your healthcare needs. The following is important discharge information regarding your hospital visit. Diagnosis from Today's Visit Viral syndrome What to Do Next Instructions from Your Care Team No qualifying data available. Post Acute Orders No qualifying data available. You Need to Schedule the Following Appointments Follow Up with Follow up with primary care provider When Within 2-4 days Allergies penicillin (Anaphylaxis) Medications Please ask your primary doctor or pharmacist before taking any other medication not listed, including over the counter drugs, herbal medications, vitamins and or supplements as they may interact with your home medications. Please take this list to your next doctor s visit. Bring all medications you take, including over the counter medications, herbals and other supplements with you to your doctor s visit. Patients and families are reminded to discard old lists and to update any records with all medication providers or retail pharmacies. Education Materials Viral Syndrome (Adult) A viral illness may cause a number of symptoms such as fever. Other symptoms depend on the part of the body that the virus affects. If it settles in your nose, throat, and lungs, it may cause cough, sore throat, congestion, runny nose, headache, earache and other ear symptoms, or shortness of breath. If it settles in your stomach and intestinal tract, it may cause nausea, vomiting, cramping, and diarrhea. Sometimes it causes generalized symptoms like aching all over, feeling tired, loss of energy, or loss of appetite. A viral illness usually lasts anywhere from several days to several weeks, but sometimes it lasts longer. In some cases, a more serious infection can look like a viral syndrome in the first few days of the illness. You may need another exam and additional tests to know the difference. Watch for the warning signs listed below for when to seek medical advice. Home care Follow these guidelines for taking care of yourself at home: If symptoms are severe, rest at home for the first 2 to 3 days. Stay away from cigarette smoke - both your smoke and the smoke from others. You may use pwys-mid-gppobgc acetaminophen or ibuprofen for fever, muscle aching, and headache, unless another medicine was prescribed for this. If you have chronic liver or kidney disease or ever had a stomach ulcer or gastrointestinal bleeding, talk with your healthcare provider before using these medicines. No one who is younger than 18 and ill with a fever should take aspirin. It may cause severe disease or . Your appetite may be poor, so a light diet is fine. Avoid dehydration by drinking 8 to 12, 8-ounce glasses of fluids each day. This may include water; orange juice; lemonade; apple, grape, and cranberry juice; clear fruit drinks; electrolyte replacement and sports drinks; and decaffeinated teas and coffee. If you have been diagnosed with a kidney disease, ask your healthcare provider how much and what types of fluids you should drink to prevent dehydration. If you have kidney disease, drinking too much fluid can cause it build up in the your body and be dangerous to your health. Zsyx-erh-elfuxou remedies won't shorten the length of the illness but may be helpful for symptoms such as cough, sore throat, nasal and sinus congestion, or diarrhea. Don't use decongestants if you have high blood pressure. Follow-up care Follow up with your healthcare provider if you do not improve over the next week. Call 911 Call 911 if any of the following occur: Convulsion Feeling weak, dizzy, or like you are going to faint Chest pain, or more than mild shortness of breath When to seek medical advice Call your healthcare provider right away if any of these occur: Cough with lots of colored sputum (mucus) or blood in your sputum Chest pain, shortness of breath, wheezing, or trouble breathing Severe headache; face, neck, or ear pain Severe, constant pain in the lower right side of your belly (abdominal) Continued vomiting (can t keep liquids down) Frequent diarrhea (more than 5 times a day); blood (red or black color) or mucus in diarrhea Feeling weak, dizzy, or like you are going to faint Extreme thirst Fever of 100.4 F (38 C) or higher, or as directed by your healthcare provider [id number] The [employer]. [address] [place] [address]. All rights reserved. This information is not intended as a substitute for professional medical care. Always follow your healthcare professional's instructions. Additional Information VACCINATE! IT SAVES LIVES! Members of the community who have not yet received the COVID-19 vaccine and would like to receive it can visit one of [facility] vaccine clinics. There are many vaccine clinic locations within the [facility]. For locations and available times, please visit [email or web address]/. It is important to note that some COVID mobile vaccine clinics are held outdoors and may be canceled in rainy or stormy conditions. To learn more about pediatric vaccinations (ages 5-11), we invite you to visit the [facility] webpage. [email or web address].[email or web address]/pages/2 879-Hxmdt-Fzdtmlolxrf-Frequently-Asked -Questions.html To learn more about the COVID-19 vaccine, we invite you to visit the CDC website for a list of frequently asked questions. https://www.cdc.gov/coronavirus/2019-n cov/vaccines/faq.html [facility] Patient Portal Access Instructions: Stay connected with your healthcare team and access your personal medical information anytime with the [employer] Patient Portal. If you would like a full copy of your medical records please contact the [facility] Medical Records Department Saturday through Saturday between 8a.m. and 4:30p.m. Please follow the directions below to access the portal: 1.Access the email account you provided upon registration to [facility].2.Look for an invitation email from [facility].3.Open the email and access the invitation link: Accept Invitation to [facility]4.Fill in the required bosch to create your account. Sign into www.[employer] with your username and password that you [...] you will allow to register on the [employer] Patient Portal for access to your information. You can also access the [employer] Patient Portal on the [employer]. Simply click on Health Records under Health Data and then click on the hhgregg logo. HOW TO SAFELY DISPOSE OF PRESCRIPTION [...] Call your local pharmacy or go to http://bit.ly/0Z8Zs2m to find one close to you.3.Make use of household items: Use cat litter or old coffee grounds to dispose medications if other options are not available. Mix your drugs with these household products, seal them in an airtight container and throw it into the garbage. Call [facility]: [phone] to be sure your drugs can be [...] a CHART COPY Signatures Patient Education Materials Viral Syndrome (Adult) Medication Leaflets My discharge plan and instructions have been reviewed and explained to me and IOSMAR ELIXIS understand my current condition and have read and understand these discharge instructions. I have received a written copy of the plan/instructions. If I have questions, I am aware that I should contact my doctor. Patient/Photo Print Specialist Signature: _ Date/Time: Relationship to Patient: Witness Name/Signature: Date/Time: [facility] Discharge instructions 08-18-2023 Note Date & Type [...] or water and you are getting dehydrated [id number] The [employer]. [address] [place] [address]. All rights reserved. This information is not intended as a substitute for professional medical care. Always follow your healthcare professional's instructions. Follow Up Care 08/18/2023 19:33:03 With:ZANDER OVERTON MD Address: [address] [address] [phone] When:2-4 days [facility] Clinical Note 08-18-2023 Note Date & Type Note Facility 08-18-2023 Note Discharge Instructions Thank you for allowing [facility] to assist you with your healthcare needs. [...] When Within 2-4 days Where: [address] [place] [address] [place] [phone] Allergies penicillin Medications Please ask your primary [...] or water and you are getting dehydrated [phone] The [employer]. [address] [place] [address], [place] [address]. All rights reserved. This information is not intended as a substitute for professional medical care. Always follow your healthcare professional's instructions. Additional Information VACCINATE! IT SAVES LIVES! Members of the community who have not yet received the COVID-19 vaccine and would like to receive it can visit one of [facility] vaccine clinics. There are many vaccine clinic locations within the [facility]. For locations and available times, please visit [email or web address].gov/. It is important to note that some COVID mobile vaccine clinics are held outdoors and may be canceled in rainy or stormy conditions. To learn more about pediatric vaccinations (ages 5-11), we invite you to visit the [facility] webpage. https://www.[email or web address].org/pages/2 875-Lrsrm-Kchpaqhvuvp-Frequently-Asked -Questions.html To learn more about the COVID-19 vaccine, we invite you to visit the CDC website for a list of frequently asked questions. https://www.cdc.gov/coronavirus/2019-n cov/vaccines/faq.html [employer] Patient Portal Access Instructions: Stay connected with your healthcare team and access your personal medical information anytime with the [employer] Patient Portal. If you would like a full copy of your medical records please contact the [facility] Medical Records Department Saturday through Saturday between 8a.m. and 4:30p.m. Please follow the directions below to access the portal: 1.Access the email account you provided upon registration to the hospital.2.Look for an invitation email from [facility].3.Open the email and access the invitation link: Accept Invitation to [facility]4.Fill in the required bosch to create your account. Sign into www.[employer] with your username and password that you [...] you will allow to register on the [employer] Patient Portal for access to your information. You can also access the [facility] Patient Portal on the [employer] antonio. Simply click on Health Records under Health Data and then click on the hhgregg logo. HOW TO SAFELY DISPOSE OF PRESCRIPTION [...] Call your local pharmacy or go to http://LoopUp.nuPSYS/0L1Ay1f to find one close to you.3.Make use of household items: Use cat litter or old coffee grounds to dispose medications if other options are not available. Mix your drugs with these household products, seal them in an airtight container and throw it into the garbage. Call [facility]: [phone] to be sure your drugs can be [...] aware that I should contact my doctor. Patient/Photo Print Specialist Signature: _ Date/Time: Relationship to Patient: Witness Name/Signature: Date/Time: [facility] Clinical Note 08-18-2023 Note Date & Type Note Facility 08-18-2023 Note Discharge Instructions Thank you for allowing [facility] to assist you with your healthcare needs. [...] Where: [address] [place] [address]- [phone] Allergies penicillin Medications Please ask your primary [...] or water and you are getting dehydrated [phone] The [employer]. [address] [place] [address]. All rights reserved. This information is not intended as a substitute for professional medical care. Always follow your healthcare professional's instructions. Additional Information VACCINATE! IT SAVES LIVES! Members of the community who have not yet received the COVID-19 vaccine and would like to receive it can visit one of [facility] vaccine clinics. There are many vaccine clinic locations within the [facility]. For locations and available times, please visit [email or web address]/. It is important to note that some COVID mobile vaccine clinics are held outdoors and may be canceled in rainy or stormy conditions. To learn more about pediatric vaccinations (ages 5-11), we invite you to visit the [facility] webpage. https://www.[email or web address].org/pages/2 431-Ukqrx-Mgepnffvnyf-Frequently-Asked -Questions.html To learn more about the COVID-19 vaccine, we invite you to visit the CDC website for a list of frequently asked questions. https://www.cdc.gov/coronavirus/2019-n cov/vaccines/faq.html [facility] Patient Portal Access Instructions: Stay connected with your healthcare team and access your personal medical information anytime with the [facility] Patient Portal. If you would like a full copy of your medical records please contact the [facility] Medical Records Department Saturday through Saturday between 8a.m. and 4:30p.m. Please follow the directions below to access the portal: 1.Access the email account you provided upon registration to the hospital.2.Look for an invitation email from [facility].3.Open the email and access the invitation link: Accept Invitation to [facility] [facility]4.Fill in the required bosch to create your account. Sign into www.[email or web address] with your username and password that you [...] you will allow to register on the [facility] Patient Portal for access to your information. You can also access the [employer] Patient Portal on the [employer] mar[employer] antonio. Simply click on Health Records under Health Data and then click on the [facility] logo. HOW TO SAFELY DISPOSE OF PRESCRIPTION [...] Call your local pharmacy or go to http://LoopUp.nuPSYS/3D1Hp7o to find one close to you.3.Make use of household items: Use cat litter or old coffee grounds to dispose medications if other options are not available. Mix your drugs with these household products, seal them in an airtight container and throw it into the garbage. Call [facility]: [phone] to be sure your drugs can be [...] aware that I should contact my doctor. Patient/Photo Print Specialist Signature: _ Date/Time: Relationship to Patient: Witness Name/Signature: Date/Time: [facility] Clinical Note 08-18-2023 Note Date & [...] by: Joseph Starkey Preliminary Report By: Yonathan Mendoza Electronically signed By Joseph Starkey Dictated Date: 08/18/2023 8:58:12 PM Prelim Date: 08/18/2023 9:05:13 PM Sign Date: 08/18/2023 9:09:18 PM Ordering Provider: ELISABETH DAVID [facility] Evaluation + Plan note Note Date & Type Note Facility Evaluation + Plan note No data available for this section [facility] Summary Purpose Family History No Family History Records Found Advance Directives No Advanced Directives Records Found Additional Source Comments INFORMATION SOURCE (unrecogn ized section and content) DATE CREATED AUTHOR 10/24/2023 [facility] ([place]) FOR RECORDS PERTAINING TO PATIENTS WHO ARE [...] BE BASED ON THE PRIMARY CLINICAL RECORDS. [facility]. provides no warranty or guarantee of the accuracy or completeness of information in this document.
--- NOTE | 2024-04-26 14:59 | EDS_ITS ---
HPI HPI - GI History of Present Illness Chief Complaint: Abd Pain Informant: patient Abdominal Pain/Flank Pain Onset: Today Context: Gradual Onset Timing: Continuous Quality: Aching and Sharp Location: RUQ and RLQ Worsened by: - (Ambulation) Relieved by: - (Tylenol, ibuprofen) Nausea/Vomiting/Emesis GI Symptom: Positive for Nausea; Negative for Vomiting Diarrhea/Melena/Hematochezia GI Symptom: Negative for Diarrhea, Melena or Hematochezia Associated Symptoms Associated Symptoms: Negative for Dysuria, Frequency or Hematuria LMP: 1 week ago Narrative Narrative: Patient presents with abdominal pain that began today. Patient states she woke up and noted some pain over the right side of her abdomen. Patient describes it as sharp and aching. Patient states that has been constant throughout the day. Patient states it is worse with walking. Patient states she took some Tylenol and ibuprofen which seemed to help. Patient admits to some nausea but denies any vomiting. Patient admits to some constipation. Patient denies any melena or hematochezia. Patient denies any dysuria, frequency, or hematuria. Patient states her last menstrual period was approximately 1 week ago. Patient denies any fevers or chills. PFSH PFS Medical History Alpha thalassemia trait G6PD deficiency Iron deficiency anemia due to chronic blood loss Ankle fracture, left Ovarian cyst Splenomegaly Anxiety Home Medications ?Medication ?Instructions ?Recorded ?Last Taken ?Type ondansetron 4 mg disintegrating 4 mg PO Q8H PRN PRN Nausea #10 tabs 04/26/24 Unknown Rx tablet Allergy/AdvReac Type Severity Reaction Status Date / Time Penicillins (PCN) Allergy Laryngospas Verified 04/26/24 14:07 ms Family History Mother Diabetes Hypertension Grandmother Cancer possibly SCLC, mets to brain; maternal Surgical History History of wisdom tooth extraction History of Social History Smoking Status: Never smoker alcohol intake: never substance use type: does not use ROS ROS ED Constitutional Constitutional ED: Denies chills or fever(s) Eyes Eyes: Denies blurry vision or change in vision ENT ENT ED: Denies rhinorrhea or sore throat Cardiovascular Cardiovascular: Denies chest pain or palpitations Respiratory/Chest Respiratory/Chest: Reports dyspnea; Denies cough Gastrointestinal Gastrointestinal: Reports abdominal pain, constipation and nausea; Denies vomiting Genitourinary Genitourinary ED: Denies dysuria or hematuria Musculoskeletal Musculoskeletal: Reports back pain; Denies neck pain Integumentary Denies abscess or rash Neurologic Neurologic: Reports headache(s); Denies weakness Allergic/Immunologic Allergic/Immunologic ED: Denies mouth swelling or urticaria EXAM Physical Exam Const Vital Signs: 04/26/24 14:07 04/26/24 16:00 Temperature 97 F L Temperature Source Temporal Pulse Rate 70 59 L Respiratory Rate 16 18 Blood Pressure 171/120 H 121/83 H Blood Pressure Mean 137 95 Pulse Ox 100 99 Oxygen Delivery Method Room Air Room Air Positive well nourished and well developed General Appearance ED: well developed and NAD HEENT Reports moist mucous membranes Neck supple and no JVD Resp normal respiratory effort and clear to auscultation bilaterally Cardio regular rate and regular rhythm GI non-distended Palpation: soft and tender epigastric, RLQ, LUQ and RUQ; Negative for guarding or rebound tenderness present Neuro CN's II-XII intact bilaterally, moves all extremities and no sensory deficits noted Motor Exam: strength 5/5 throughout Psych mental status grossly normal MDM MDM MDM Narrative Medical decision making narrative: Differential diagnosis includes cholecystitis, cholelithiasis, pancreatitis, duodenal ulcer, peptic ulcer disease, gastritis, diverticulitis, ectopic , urinary tract infection, and pyelonephritis. CBC will be obtained to assess for leukocytosis and anemia. Comprehensive metabolic profile will be obtained to assess for hepatic function, renal function, and electrolyte abnormality. Urinalysis will be obtained to assess for urinary tract infection and hematuria. Serum hCG will be obtained to assess for . Lipase will be obtained to assess for pancreatitis. CT scan of the abdomen pelvis will be obtained to assess for bowel obstruction, pancreatitis, and perforation. Lab Data Attestation: I reviewed the patient's lab results. Lab results narrative: CBC was reviewed and was within normal limits. Comprehensive metabolic profile was reviewed and was essentially within normal limits. Lipase was reviewed and was normal. Serum hCG was reviewed and was negative. Urinalysis was reviewed. There were 5-10 white blood cells and 2+ bacteria. Leukocyte esterase was negative. Labs: Laboratory Results - last 24 hr 04/26/24 14:40 WBC 5.2 RBC 5.53 H Hgb 13.0 Hct 42.5 MCV 76.9 L MCH 23.5 L MCHC 30.6 L RDW Std Deviation 39.0 RDW Coeff of Richard 14.0 Plt Count 250 MPV 12.9 H Immature Gran % (Auto) 0.200 Neut % (Auto) 44.9 L Lymph % (Auto) 41.9 H Estill % (Auto) 8.5 Eos % (Auto) 3.7 Baso % (Auto) 0.8 Absolute Neuts (auto) 2.3 Absolute Lymphs (auto) 2.18 Nucleated RBC % 0 Sodium 140 Potassium 3.7 Chloride 108 H Carbon Dioxide 28.0 Anion Gap 3 L BUN 9 Creatinine 0.59 Estim Creat Clear Calc 171.35 Est GFR (MDRD) Af Amer 160 Est GFR (MDRD) Non-Af 132 BUN/Creatinine Ratio 15.2 Glucose 87 Calcium 8.8 Total Bilirubin 0.60 AST 20 ALT 49 Alkaline Phosphatase 73 Total Protein 7.1 Albumin 3.5 Globulin 3.6 Albumin/Globulin Ratio 1.0 Lipase 19 Serum , Qual NEGATIVE Urine Color Straw Urine Clarity Clear Urine pH 6.0 Ur Specific Warren 1.010 Urine Protein 30 H Urine Glucose (UA) Normal Urine Ketones Negative Urine Occult Blood Negative Urine Nitrite Negative Urine Bilirubin Negative Urine Urobilinogen Normal Ur Leukocyte Esterase Negative Urine RBC 0 SEEN Urine WBC 5-10 SEEN Ur Squamous Epith Cells 0 SEEN Urine Bacteria 2+ Urine Mucus 0 SEEN Radiography Diagnostic Testing: Clinical Impression(s) from Imaging Studies Abdomen/Pelvis CT 04/26/24 14:56 IMPRESSION: 1. Cholelithiasis with questionable mild pericholecystic fluid. Correlation with gallbladder ultrasound is recommended. 2. Splenomegaly. 3. Otherwise no focal acute inflammatory process. Electronically Signed: Eros Tapia MD at 15:56 EDT , CT scan of the abdomen pelvis was obtained. There is cholelithiasis with questionable mild pericholecystic fluid. There is no other acute process noted. This was interpreted by the radiologist and was also independently reviewed by myself. Treatment and Re-Evaluation :: Patient was given morphine and Zofran. Patient was feeling better on reevaluation. Patient states she has a good appetite at the present time. Patient was advised of her findings. Case was discussed with Dr. Salazar from general surgery. He agrees with outpatient follow-up. Patient will be given a prescription for an outpatient right upper quadrant ultrasound. Patient was instructed to follow-up with Dr. Salazar in 3 to 5 days. Patient was instructed to eat a bland diet. Patient was instructed to avoid fried foods, fatty foods, greasy foods. Patient was also given a prescription for Zofran. Patient was instructed to return if worse in any way. Patient understood and was agreeable with the plan. All questions were answered. Discharge Plan Triage Chief Complaint: Abd Pain ED Provider: Errol Hamm Dx/Rx/DC Orders Clinical Impression: Cholelithiasis, G6PD deficiency, Splenomegaly Instructions: ED Gallstones with Biliary Colic Prescriptions: New ondansetron 4 mg tablet,disintegrating 4 mg PO Q8H PRN PRN (Reason: Nausea) Qty: 10 0RF Other Ambulatory Orders: Gallbladder (Routine) Facility: [facility] - Location: [facility] Ordered By: Dr. Errol Hamm Primary Care Provider: Care Physician,No Primary Referrals: Landon Salazar MD [Med Staff - Active Staff] - 3-5 Days Care Physician,No Primary [Primary Care Provider] - Print Language: Paraguayan Disposition Disposition: Home, Self Care
[2024-04-26] MEDS: Ondansetron 4 MG/2 ML Vial IV (15:09)
[2024-04-26] MEDS: Morphine 4 MG/ML Syringe IV (15:10)
[2024-04-26 15:13] LABS: Mucous, Urine 0 SEEN /hpf (<or=2+); Red Blood Cells-Urine 0 SEEN /hpf (0-5); Squamous Epithelial Cells - UA 0 SEEN /hpf (5-10)
[2024-04-26 15:16] LABS: Absolute Lymphocyte Count 2.18 X10^3/uL (0.83-4.51); Absolute Neutrophil Count 2.3 X10^3/uL (2.0-7.7); Basophil# 0.04 X10^3/uL; Basophil% 0.8 % (0-1); Eosinophil# 0.19 X10^3/uL; Eosinophils% 3.7 % (0-5); Hematocrit 42.5 % (37-47); Lymphocyte # 2.18 X10^3/ul (0.83-4.51); Lymphocyte % 41.9 % (19-41); Mean Corp Hgb Conc 30.6 g/dL (32-36); Mean Corpuscular Hgb 23.5 pg (27.0-32.0); Mean Corpuscular Volume 76.9 fL (81-99); Mean Platelet Vol. 12.9 fl (6.2-12.0); Monocyte# 0.44 X10^3/uL; Monocyte% 8.5 % (0-10); NRBC Flagged by Analyzer 0 % (0-5); Neutrophil # 2.34 X10^3/uL (2.7-7.7); Neutrophil % 44.9 % (47-70); Platelet Count 250 K/mm3 (150-450); Red Blood Count 5.53 M/mm3 (4.2-5.4); White Blood Count 5.2 K/mm3 (4.4-11.0)
[2024-04-26 15:24] LABS: Color, Urine Straw (Yellow); Glucose, Dipstick Normal (Normal); Ketone-Dipstick Negative (Negative); Leukocyte Esterase-Dipstick Negative /ul (Negative); Nitrite-Dipstick Negative (Negative); Occult Blood-Urine Negative /ul (Negative); Protein-Dipstick 30 mg/dl (Negative); Urine Bilirubin Dipstick Negative (Negative); Urine Clarity Clear (Clear); Urine Urobilinogen Normal (Normal)
[2024-04-26 15:26] LABS: Internal QC Validated? YES +Cl - CLEAR BKGD; Pregnancy, Serum, hCG Quali. NEGATIVE Negative
[2024-04-26 15:34] LABS: AST(SGOT) 20 U/L (15-37); Alanine Aminotransfer ALT/SGPT 49 U/L (13-56); Albumin, Serum 3.5 g/dL (3.2-5.0); Alkaline Phosphatase 73 U/L (45-117); Anion Gap 3 (5-15); BUN 9 mg/dL (7-18); BUN/Creat Ratio 15.2 RATIO (10-20); Calcium,Total 8.8 mg/dL (8.5-10.1); Chloride 108 mmol/L (98-107); Creatinine, Serum 0.59 mg/dL (0.55-1.02); EST Glomerular Filtration Rate 132 mL/min (>60); Est Glom Filt Rate - Afr Amer 160 mL/min (>60); Estimated Creatinine Clearance 171.35 ml/min; Globulin 3.6 g/dL (2.2-4.2); Glucose 87 mg/dL (74-106); Lipase 19 U/L (13-75); Potassium 3.7 mmol/L (3.5-5.1); Protein, Total 7.1 g/dL (6.4-8.2); Sodium Level 140 mmol/L (136-145)
[2024-04-26 15:59] LABS: Bacteria 2+ /hpf (None Seen); White Blood Cells 5-10 SEEN /hpf (0-5)
[2024-04-26 16:00] VITALS: BP 121/83; PULSE 59; RESP 18; O2SAT 99
[2024-04-26 17:24] VITALS: BP 126/75; PULSE 76; RESP 18; TEMP 36.8; O2SAT 100
== END 2024-04-26 18:13 | disposition home or self-care (01) ==
PROVIDERS: Emergency Provider Emergency Medicine; Visit Provider Emergency Medicine
DX: K80.20 Calculus of gallbladder without cholecystitis without obstruction (principal); D75.A Glucose-6-phosphate dehydrogenase (G6PD) deficiency without anemia; R16.1 Splenomegaly, not elsewhere classified; K59.00 Constipation, unspecified; Z88.0 Allergy status to penicillin
CPT/HCPCS: 74177; 80053; 81001; 83690; 84703; 85025; 87086; 87088; 96374; 96375; 99283; Q9967; A4216; J2405

== ENCOUNTER 2024-05-03 11:09 | Emergency (ER) | payer MEDICAID, SELFPAY ==
[2024-05-03 11:10] VITALS: BP 161/120; PULSE 84; RESP 18; TEMP 37.1; O2SAT 100; BMI 38.7
--- NOTE | 2024-05-03 11:33 | US_ITS ---
EXAM: US ABDOMEN LIMITED, RIGHT UPPER QUADRANT CLINICAL INDICATION: ABDOMEN PAIN, NAUSEA TECHNIQUE: Real-time ultrasound of the right upper quadrant with image documentation. COMPARISON: CT abdomen and pelvis, 04/26/2024 FINDINGS: LIVER: No significant abnormality. There is normal echotexture. No focal hepatic lesion. No intrahepatic biliary ductal dilation. GALLBLADDER: Multiple gallstones are present. There is gallbladder wall thickening measuring up to 5 mm. No discrete pericholecystic fluid. The presence or absence of a sonographic Jackson sign is not annotated. COMMON BILE DUCT: Normal as visualized. The proximal common bile duct is within normal limits for the patient''s age. PANCREAS: The pancreas is partially obscured due to bowel gas and appears otherwise normal. RIGHT KIDNEY: No significant abnormality. There is no hydronephrosis. No shadowing calculus. No focal lesion or perinephric collection is demonstrated. US/Gallbladder IMPRESSION: Findings perhaps indicative of acute cholecystitis. The presence or absence of a sonographic Jackson sign is not annotated. Correlate clinically. Consider hepatobiliary scan. Electronically Signed: Kj Bryant DO at 13:38 EST ,
--- NOTE | 2024-05-03 11:35 | EKG12_ITS ---
Test Reason : gen illness Blood Pressure : */* mmHG Vent. Rate : 60 BPM Atrial Rate : 60 BPM P-R Int : 176 ms QRS Dur : 90 ms QT Int : 402 ms P-R-T Axes : 50 31 39 degrees QTcB Int : 402 ms Normal sinus rhythm with sinus arrhythmia Normal ECG Confirmed by Landon Bernard ([id number]), production editor SARAH VINCENT ([id number]) on 05/04/2024 9:21:10 AM Referred By: Confirmed By: Landon Bernard
--- NOTE | 2024-05-03 11:37 | EDS_ITS ---
HPI History of Present Illness Chief Complaint: General Illness Informant: patient Onset/Context/Timing Onset: Days Context: Gradual Onset Timing: Intermittent Current Severity: Mild Maximum Severity: Mild Narrative Narrative: 24-year-old female known history of gallstones, G6PD deficiency and sickle cell. Dates she has not felt well for the last several days. When she eats she gets nauseated. At times she has right upper quadrant abdominal pain. And today she felt mildly short of breath. Denies fever or chills. No chest pain. No hemoptysis. No leg pain or swelling. No history of DVT or PE risk factors. Only prior abdominal surgery was for . She has had some nausea and diarrhea. Prior similar symptoms: Yes Recent Illness/Hospitalization: No PFSH PFSH Medical History Alpha thalassemia trait G6PD deficiency Iron deficiency anemia due to chronic blood loss Ankle fracture, left Ovarian cyst Splenomegaly Anxiety Home Medications ?Medication ?Instructions ?Recorded ?Last Taken ?Type ondansetron 4 mg disintegrating 4 mg PO Q8H PRN PRN Nausea #10 tabs 04/26/24 Unknown Rx tablet Allergy/AdvReac Type Severity Reaction Status Date / Time Penicillins (PCN) Allergy Laryngospas Verified 05/03/24 11:12 ms Family History Mother Diabetes Hypertension Grandmother Cancer possibly SCLC, mets to brain; maternal Surgical History History of wisdom tooth extraction History of Social History Smoking Status: Never smoker alcohol intake: never substance use type: does not use ROS ROS ED ROS Narrative Nausea, diarrhea and intermittent abdominal pain. Constitutional Constitutional ED: Denies chills or fever(s) Eyes Eyes: Denies blurry vision ENT ENT ED: Denies ear pain Cardiovascular Cardiovascular: Denies chest pain Respiratory/Chest Respiratory/Chest: Reports dyspnea Gastrointestinal Gastrointestinal: Reports abdominal pain, diarrhea and nausea; Denies constipation, melena or vomiting Genitourinary Genitourinary ED: Denies dysuria or hematuria Musculoskeletal Musculoskeletal: Denies arthralgias Integumentary Denies abscess Neurologic Neurologic: Denies headache(s) Psychiatric Psychiatric: Denies anxiety or depression Endocrine Endocrinology: Denies cold intolerance Hematologic/Lymphatic Hematologic/Lymphatic: Reports none Allergic/Immunologic Allergic/Immunologic ED: Reports mouth swelling; Denies tongue swelling or urticaria EXAM Physical Exam Narrative Exam Narrative: 24-year-old female vital signs stable afebrile. Blood pressure elevated 161/120. Pulse ox 100% on room air no hypoxia. H EENT exam unremarkable. Must remember. Neck nontender lymphadenopathy. Lungs clear to auscultation bilaterally. Heart regular rate and rhythm rate about 80 no murmur. Chest wall and ribs nontender. Abdomen soft nondistended normal bowel sounds no peritoneal signs. Mild right upper quadrant tenderness. No Jackson sign. Back nontender. Neurologically patient is awake and alert. No focal motor deficits. Awake alert. Moving all 4 extremities. Const Vital Signs: 05/03/24 11:10 05/03/24 11:48 05/03/24 13:10 Temperature 98.7 F Temperature Source Oral Pulse Rate 84 87 Respiratory Rate 18 18 Respiratory Effort Normal Respiratory Pattern Normal Blood Pressure 161/120 H 153/89 H Blood Pressure Mean 133 110 Pulse Ox 100 98 Oxygen Delivery Method Room Air Room Air Positive well nourished and well developed; Negative for cachectic, contractures or unkempt General Appearance ED: well developed and NAD; Negative for unkempt, cachectic, contractures, cyanotic, diaphoretic or pallor Nutritional Appearance: Negative for cachectic HEENT Reports moist mucous membranes; Denies dry mucous membranes Negative for trauma or tenderness Mouth ED: No dry mucous membranes Mouth: No dry mucous membranes Eyes PERRL and EOMs intact bilaterally General Eye ED: Negative for pale conjunctiva Neck no lymphadenopathy, supple and no JVD General: Negative for tenderness Lymph Lymphatic: Negative for other Chest Wall inspection of chest normal and palpation of chest normal Resp normal respiratory effort and clear to auscultation bilaterally Effort and Inspection: Negative for retractions Auscultation: Negative for rales, rhonchi, wheezes or diminished lung sounds Cardio regular rate, regular rhythm, S1 normal heart sound, S2 normal heart sound and no murmurs Palpation: Negative for palpable S3 or palpable S4 Rate: Negative for bradycardia or tachycardic GI normal to inspection, nondistended, normoactive bowel sounds, non-distended and no masses; Negative for non-tender GI Narrative: Right upper quadrant tenderness. No peritoneal signs. No Jackson sign. Inspection: Negative for abdominal distention Auscultation: normoactive bowel sounds Palpation: soft and tender; Negative for guarding or rebound tenderness present Back/Spine no CVA tenderness General Back: Negative for CVA tenderness Cervical Spine: Negative for cervical spine tenderness Thoracic Spine / Upper Back: Negative for thoracic spinal tenderness or paraspinal muscle tenderness Lumbar Spine / Lower Back: Negative for lumbar spinal tenderness Extremity normal to inspection General Extremety ED: Negative for edema, tenderness or other findings General Extremity: Negative for edema or other findings Neuro oriented x3 and CN's II-XII intact bilaterally Sensorium / Orientation: alert; Negative for orientation impaired, lethargic or stuporous Motor Exam: strength 5/5 throughout; Negative for general weakness or strength abnormal Psych mental status grossly normal Appearance: Negative for unkempt Attitude: No agitated Mood & Affect: Negative for depressed, anxious or tearful Skin no rashes or lesions noted, no wounds and skin turgor normal General Skin Exam: elasticity normal; Negative for jaundice or pallor Lesions: No lesion noted Rashes: No rashes noted Trauma: Negative for abrasion Wounds: Negative for wounds noted MDM MDM MDM Narrative Medical decision making narrative: 44-year-old female with right upper quad abdominal pain known history of gal lstones. Labs and ultrasound pending. Morphine for pain and Zofran for nausea. She also complained of mild shortness of breath her lung exam is normal her heart exam is normal. Will get a chest x-ray and EKG but this may be from when she takes a deep breath she has increased right upper quadrant pain. She has no history of cardiac disease and no history or risk factors of DVT or PE. She has no leg pain or swelling. Repeat exam patient is doing well at 2:25 PM. Abdomen is very benign. She has no Jackson sign. Or any significant tenderness at all in the right upper quadrant currently. I discussed her test results of both her and I believe it is significant other at bedside. I spoke to the general surgeon on-call Dr. Astrid Aragon. We discussed the patient's exam and test results she reviewed the ultrasound herself. She is comfortable the patient being discharged home with outpatient follow-up in her office. Patient will be instructed on watching her diet for fatty or greasy foods. Patient is actually already been seen by Dr. Landon Salazar and she had an ultrasound set up tomorrow explained to them they have already had it done tonight. Call the office tomorrow the surgeons were given to be seen hopefully this week. History & Record Review Discussion w/independent historian: Patient Additional record(s) reviewed:: Prior inpatient record, Prior outpatient record, Prior ED visit and Prior labs Lab Data Attestation: I reviewed the patient's lab results. Lab results narrative: CBC normal. White count 5. H&H 13 and 43. Platelets 233. Electrolytes show gap 5. Normal BUN of 8 creatinine 0.58. Glucose 91. Liver enzymes normal. Lipase normal at 21. Serum test negative. Chest x-ray normal. Labs: Laboratory Results - last 24 hr 05/03/24 11:40 WBC 5.7 RBC 5.74 H Hgb 13.5 Hct 43.8 MCV 76.3 L MCH 23.5 L MCHC 30.8 L RDW Std Deviation 38.8 RDW Coeff of Richard 14.3 Plt Count 233 MPV 12.9 H Immature Gran % (Auto) 0.400 Neut % (Auto) 54.6 Lymph % (Auto) 34.2 [place] % (Auto) 6.9 Eos % (Auto) 3.2 Baso % (Auto) 0.7 Absolute Neuts (auto) 3.1 Absolute Lymphs (auto) 1.94 Nucleated RBC % 0 Sodium 140 Potassium 3.9 Chloride 107 Carbon Dioxide 28.0 Anion Gap 5 BUN 8 Creatinine 0.58 Estim Creat Clear Calc 174.09 Est GFR (MDRD) Af Amer 163 Est GFR (MDRD) Non-Af 135 BUN/Creatinine Ratio 13.7 Glucose 91 Calcium 9.0 Total Bilirubin 0.60 AST 14 L ALT 29 Alkaline Phosphatase 77 Total Protein 7.2 Albumin 3.7 Globulin 3.5 Albumin/Globulin Ratio 1.1 Lipase 21 Serum , Qual NEGATIVE Radiography Chest X-Ray - ED: 1 View, Read by ED Physician, Read by Radiologist, Heart, Lungs, Mediastinum, Bony Structures and No Acute Disease Diagnostic Testing: Clinical Impression(s) from Imaging Studies Gallbladder Ultrasound 05/03/24 11:33 IMPRESSION: Findings perhaps indicative of acute cholecystitis. The presence or absence of a sonographic Jackson sign is not annotated. Correlate clinically. Consider hepatobiliary scan. Electronically Signed: Kj Bryant DO at 13:38 EST , Chest X-Ray 05/03/24 12:05 IMPRESSION: No radiographic evidence of acute cardiopulmonary disease. Electronically Signed: Kj Bryant DO at 12:16 EST , Chest x-ray, 2 views, AP and lateral, interpreted by myself and radiology shows no acute abnormality. Normal cardiac silhouette. Normal lung bosch. No infiltrate. No effusions or fluid. Rhythm Strip Rhythm Strip: Sinus Rhythm Rate: 60 Ectopy: None EKG Initial EKG: Attestation: I personally reviewed and interpreted this EKG as follows: Interpretation: Sinus Rhythm and No Acute Injury Pattern Comments: Normal sinus rhythm rate of 60 no acute signs of IN or ischemia. No dysrhythmia. Discharge Plan Triage Chief Complaint: General Illness ED Provider: Mark Lutz Dx/Rx/DC Orders Clinical Impression: Abdominal pain, Cholelithiasis, Biliary colic Instructions: Gallstones Dc Prescriptions: No Action ondansetron 4 mg tablet,disintegrating 4 mg PO Q8H PRN PRN (Reason: Nausea) Qty: 10 0RF Primary Care Provider: Care Physician,No Primary Referrals: Bertha Aragon MD [Med Staff - Active Staff] - As soon as possible Care Physician,No Primary [Primary Care Provider] - Activity Restrictions/Additional Instructions: Tylenol and/or Motrin for pain. Pain most likely from your gallbladder and gallstones. There is no acute signs of infection or obstruction. I discussed your test and ultrasound with our general surgeon on-call Dr. Astrid Aragon. Call our office on Saturday and she will get you in to be seen. Avoid fatty, greasy foods. Avoid cabbage and chocolate. Avoid salad dressings. If you have increasing pain, fever or intractable vomiting return to be reevaluated. Print Language: Hebrew Disposition Disposition: Home, Self Care
[2024-05-03 11:52] LABS: Absolute Lymphocyte Count 1.94 X10^3/uL (0.83-4.51); Absolute Neutrophil Count 3.1 X10^3/uL (2.0-7.7); Basophil# 0.04 X10^3/uL; Basophil% 0.7 % (0-1); Eosinophil# 0.18 X10^3/uL; Eosinophils% 3.2 % (0-5); Hematocrit 43.8 % (37-47); Hemoglobin 13.5 g/dL (12.0-15.0); Lymphocyte # 1.94 X10^3/ul (0.83-4.51); Lymphocyte % 34.2 % (19-41); Mean Corp Hgb Conc 30.8 g/dL (32-36); Mean Corpuscular Hgb 23.5 pg (27.0-32.0); Mean Corpuscular Volume 76.3 fL (81-99); Mean Platelet Vol. 12.9 fl (6.2-12.0); Monocyte# 0.39 X10^3/uL; Monocyte% 6.9 % (0-10); NRBC Flagged by Analyzer 0 % (0-5); Neutrophil % 54.6 % (47-70); Platelet Count 233 K/mm3 (150-450); RBC Distribution Width CV 14.3 % (11.6-14.6); RBC Distribution Width SD 38.8 fl (35.1-43.9); Red Blood Count 5.74 M/mm3 (4.2-5.4); White Blood Count 5.7 K/mm3 (4.4-11.0)
[2024-05-03] MEDS: morphine 8 MG/ML Syringe 6 MG IV (11:52)
[2024-05-03] MEDS: Ondansetron 4 MG/2 ML Vial IV (11:52)
[2024-05-03 12:04] LABS: Internal QC Validated? YES +Cl - CLEAR BKGD; Pregnancy, Serum, hCG Quali. NEGATIVE Negative
[2024-05-03 12:05] LABS: ALB/GLOB Ratio 1.1 RATIO (0.9-2.4); AST(SGOT) 14 U/L (15-37); Alanine Aminotransfer ALT/SGPT 29 U/L (13-56); Albumin, Serum 3.7 g/dL (3.2-5.0); Alkaline Phosphatase 77 U/L (45-117); Anion Gap 5 (5-15); BUN 8 mg/dL (7-18); BUN/Creat Ratio 13.7 RATIO (10-20); Chloride 107 mmol/L (98-107); Creatinine, Serum 0.58 mg/dL (0.55-1.02); EST Glomerular Filtration Rate 135 mL/min (>60); Est Glom Filt Rate - Afr Amer 163 mL/min (>60); Estimated Creatinine Clearance 174.09 ml/min; Globulin 3.5 g/dL (2.2-4.2); Glucose 91 mg/dL (74-106); Lipase 21 U/L (13-75); Potassium 3.9 mmol/L (3.5-5.1); Protein, Total 7.2 g/dL (6.4-8.2); Sodium Level 140 mmol/L (136-145)
--- NOTE | 2024-05-03 12:05 | RAD_ITS ---
EXAM: XR CHEST, 2 VIEWS CLINICAL INDICATION: dyspnea TECHNIQUE: Frontal and lateral views of the chest. COMPARISON: No relevant prior studies available. FINDINGS: LUNGS AND PLEURAL SPACES: No significant abnormality. No consolidation or edema. No pneumothorax. No effusion. HEART: No significant abnormality. Cardiac silhouette not enlarged. MEDIASTINUM: Central airways and mediastinal contour are unremarkable. BONES/JOINTS: No significant abnormality. No acute fracture. SOFT TISSUES: No significant abnormality. RAD/Chest PA and Lateral IMPRESSION: No radiographic evidence of acute cardiopulmonary disease. Electronically Signed: Kj Bryant DO at 12:16 EST ,
[2024-05-03 13:10] VITALS: BP 153/89; PULSE 87; RESP 18; O2SAT 98
[2024-05-03 14:42] VITALS: BP 132/78; PULSE 87; RESP 16; TEMP 37.1; O2SAT 99
== END 2024-05-03 14:43 | disposition home or self-care (01) ==
PROVIDERS: Emergency Provider Emergency Medicine; Visit Provider Emergency Medicine
DX: K80.20 Calculus of gallbladder without cholecystitis without obstruction (principal); D75.A Glucose-6-phosphate dehydrogenase (G6PD) deficiency without anemia; D56.3 Thalassemia minor; Z87.19 Personal history of other diseases of the digestive system; Z88.0 Allergy status to penicillin
CPT/HCPCS: 71046; 76705; 80053; 83690; 84703; 85025; 93005; 96374; 96375; 99283; A4216; J2405

== ENCOUNTER 2024-05-07 11:44 | Day surgery (SDC) | payer MEDICAID, SELFPAY ==
[2024-05-07] VITALS (11 sets, daily range): BP systolic 127–162; BP diastolic 67–92; PULSE 60–103; RESP 16–17; TEMP 36.6–36.8; O2SAT 97–100; BMI 37.2
[2024-05-07 12:43] LABS: Internal QC Validated? YES +Cl - CLEAR BKGD
[2024-05-07 12:44] LABS: Pregnancy, Urine Negative Negative
[2024-05-07] MEDS: Lactated Ringers 1,000 ML 15 ML IV (12:59)
[2024-05-07] MEDS: Gentamicin IV 270 MG in Dextrose 5%-Water (50mL Bag) 50 ML 100 MG IVPB (13:30)
[2024-05-07] MEDS: Clindamycin 900 MG/50 ML BAG 75 MG IV (13:59)
[2024-05-07] MEDS: Bupivacaine 0.25% 30 ML Vial (15:27)
[2024-05-07] MEDS: oxyCODONE 5 MG Tablet PO (17:12)
[2024-05-07] MEDS: proMETHazine 25 MG Tablet PO (18:06)
== END 2024-05-07 18:20 | disposition home or self-care (01) ==
LOC: SDC 11:46 → AC 11:55
PROVIDERS: Anesthesiology; Referring Provider Surgery; Visit Provider Surgery
PROC: (CPT 47610; principal; 2024-05-07 13:00)
DX: K80.12 Calculus of gallbladder with acute and chronic cholecystitis without obstruction (principal); D75.A Glucose-6-phosphate dehydrogenase (G6PD) deficiency without anemia; D56.3 Thalassemia minor; Z88.0 Allergy status to penicillin; Z87.19 Personal history of other diseases of the digestive system
CPT/HCPCS: 47563; 00790; 74300; 76000; 81025; 88304; 93005; J7120; J2405

== ENCOUNTER 2024-05-13 01:02 | Emergency (ER) | payer MEDICAID, SELFPAY ==
[2024-05-13 01:03] VITALS: PULSE 86; RESP 18; TEMP 36.3; O2SAT 100; BMI 38.0
[2024-05-13 01:06] VITALS: BP 144/122
--- NOTE | 2024-05-13 01:13 | CT_ITS ---
INDICATION: abd pain s/p lap tasia last week COMPARISON: Gallbladder ultrasound 05/03/[address] 04/26/2024 and 03/01/2023. IV Contrast dosage and agent: 100 cc Isovue-370 IV. A radiation dose optimization technique was used for this scan. RADIATION DOSAGE (If Supplied By Facility): CTDIvol/DLP = ( 16.95 ) / ( 1284.11 ) mGy/mGycm FINDINGS: Contrast enhanced serial CT axial images through the abdomen and pelvis with coronal and sagittal reformatted series. PANCREAS: No peripancreatic fat stranding. BOWEL/MESENTERY: No dilated bowel loops. No free air. GALLBLADDER: Absent gallbladder with surgical clip in the gallbladder fossa. Trace amount of free fluid without significant focal organized fluid collection to suggest abscess. Small amount of free fluid within the dependent pelvis as well. LIVER/STOMACH: No obvious abnormality. APPENDIX: Normal caliber appendix. UTERUS/ADNEXA: 21 mm rim-enhancing dominant left ovarian cyst. URINARY COLLECTING SYSTEM/ KIDNEYS: No obstructing ureteral calculus. No significant renal parenchymal abnormality. SPLEEN: Splenomegaly measuring up to 17 cm in the craniocaudal dimension again noted. LUNG BASES: Unremarkable. BONES: Unremarkable for age. CT/Abdomen/Pelvis W IV Cont ONLY IMPRESSION: Absent gallbladder with surgical clip in the gallbladder fossa. Trace amount of associated free fluid without significant focal organized fluid collection to suggest abscess. Dominant 2.1 cm left ovarian cyst. Stable significant splenomegaly from one year prior. Electronically Signed: Abundio Brooke MD at 3:13 EST ,
--- NOTE | 2024-05-13 01:15 | EDS_ITS ---
HPI HPI - GI History of Present Illness Chief Complaint: Abd Pain Informant: patient Abdominal Pain/Flank Pain Onset: Days Context: Gradual Onset Timing: Continuous Quality: Sharp Location: Epigastric and RUQ Current Severity: Moderate Maximum Severity: Moderate Worsened by: Nothing Relieved by: Nothing Nausea/Vomiting/Emesis GI Symptom: Positive for Nausea; Negative for Vomiting Diarrhea/Melena/Hematochezia GI Symptom: Negative for Diarrhea, Melena or Hematochezia Associated Symptoms Associated Symptoms: Negative for Dysuria, Frequency, Hematuria or Urgency Narrative Narrative: 24-year-old female status post laparoscopic cholecystectomy done by Dr. Landon Salazar last . She has a history of G6PD deficiency, anemia and a prior 2 years ago. Complaining of epigastric pain radiating to her right upper quadrant and flank. Denies any dysuria. Denies any hematuria. Had a recent negative test. Has nausea no vomiting or diarrhea. Denies any fever. Prior similar symptoms: Yes Recent Illness/Hospitalization: No PFSH PFSH Medical History Wears glasses Marijuana use Anemia Asthma Non-smoker Bradycardia Hypertension Gallstones Cholecystitis Alpha thalassemia trait G6PD deficiency Iron deficiency anemia due to chronic blood loss Ankle fracture, left Ovarian cyst Splenomegaly Anxiety Home Medications ?Medication ?Instructions ?Recorded ?Last Taken ?Type ondansetron 4 mg disintegrating 4 mg PO Q8H PRN PRN Nausea #10 tabs 04/26/24 Unknown Rx tablet nystatin 100,000 unit/gram topical 1 applic topical BID #15 grams 05/07/24 Unknown Rx powder oxycodone 5 mg tablet 5 mg PO Q6H PRN pain 5 days #14 05/07/24 Unknown Rx tabs oxycodone 5 mg tablet 5 mg PO Q8H PRN pain 3 days #10 05/09/24 Unknown Rx tabs Allergy/AdvReac Type Severity Reaction Status Date / Time Penicillins (PCN) Allergy Laryngospas Verified 05/13/24 01:03 ms Family History Mother Diabetes Hypertension Grandmother Cancer possibly SCLC, mets to brain; maternal Surgical History History of wisdom tooth extraction History of Social History Smoking Status: Never smoker alcohol intake: never substance use type: does not use ROS ROS ED ROS Narrative Epigastric and right upper quadrant flank abdominal pain. Nausea. Constitutional Constitutional ED: Denies chills or fever(s) ENT ENT ED: Denies ear pain Cardiovascular Cardiovascular: Denies chest pain Respiratory/Chest Respiratory/Chest: Denies cough or dyspnea Gastrointestinal Gastrointestinal: Reports abdominal pain and nausea; Denies constipation, diarrhea, melena or vomiting Genitourinary Genitourinary ED: Denies dysuria or hematuria Musculoskeletal Musculoskeletal: Denies arthralgias Integumentary Denies abscess Neurologic Neurologic: Denies headache(s) Endocrine Endocrinology: Denies polydipsia Hematologic/Lymphatic Hematologic/Lymphatic: Denies easy bleeding Allergic/Immunologic Allergic/Immunologic ED: Denies mouth swelling EXAM Physical Exam Narrative Exam Narrative: Well-appearing 24-year-old female. Vital signs are stable afebrile. Pulse ox 100% on room air no hypoxia. H EENT exam unremarkable. Moist mucous membranes. Neck nontender. Lungs clear. Heart regular rate and rhythm rate about 85 no murmur. Chest wall ribs nontender. Abdomen soft, nondistended normal bowel sounds without peritoneal signs. She has 3 well-healing laparoscopic incisions that are epigastric, right upper quadrant and periumbilical. They are dry and clean. She has mild epigastric right upper quadrant tenderness. Not to be unexpected since her recent surgery. There is no distention or signs of obstruction. No hernia or mass. Abdomen soft. Moving all 4 extremities. Nontender no edema. Back nontender. She is awake and alert. Const Vital Signs: 05/13/24 01:03 05/13/24 01:06 05/13/24 03:02 Temperature 97.3 F L Temperature Source Temporal Pulse Rate 86 81 Respiratory Rate 18 16 Blood Pressure 144/122 H 119/61 Blood Pressure Mean 129 80 Pulse Ox 100 97 Oxygen Delivery Method Room Air Room Air Positive well nourished and well developed; Negative for cachectic, contractures or unkempt General Appearance ED: well developed and NAD; Negative for unkempt, cachectic, contractures or pallor Nutritional Appearance: Negative for cachectic HEENT Reports moist mucous membranes normocephalic and atraumatic Eyes PERRL and EOMs intact bilaterally Neck no lymphadenopathy, supple and no JVD Resp normal respiratory effort and clear to auscultation bilaterally Effort and Inspection: Negative for respiratory distress Auscultation: Negative for rales, rhonchi, wheezes or diminished lung sounds Cardio regular rate, regular rhythm, S1 normal heart sound, S2 normal heart sound and no murmurs Rate: Negative for bradycardia or tachycardic Rhythm: Negative for abnormal rhythm GI non-tender, non-distended and no masses Inspection: Negative for abdominal distention Auscultation: normoactive bowel sounds Palpation: soft and tender; Negative for guarding, hepatomegaly, splenomegaly, hernia, mass, pulsatile mass or rebound tenderness present Back/Spine no CVA tenderness General Back: Negative for CVA tenderness Cervical Spine: Negative for cervical spine tenderness Thoracic Spine / Upper Back: Negative for thoracic spinal tenderness Lumbar Spine / Lower Back: Negative for lumbar spinal tenderness Extremity General Extremety ED: Negative for edema or tenderness General Extremity: Negative for edema Neuro CN's II-XII intact bilaterally and moves all extremities Sensorium / Orientation: alert, oriented to person, oriented to place and oriented to time; Negative for orientation impaired, confused or lethargic Motor Exam: strength 5/5 throughout Psych mental status grossly normal and thought process normal Appearance: Negative for unkempt Attitude: No agitated Mood & Affect: Negative for depressed, anxious or tearful Skin no wounds General Skin Exam: Negative for jaundice or pallor Lesions: no lesions Rashes: no rashes MDM MDM MDM Narrative Medical decision making narrative: 24-year-old female abdominal pain after laparoscopic cholecystectomy. Abdomen is benign. She is some tenderness. Her laparoscopic incisions are dry and clean. CAT scan labs to be obtained. I be surprised if there is a postop infection but the possibility clinically she does not have a bowel obstruction. Unlikely to be pancreatitis. She be treated with IV morphine and Zofran. Repeat exam at 2:13 AM patient doing well. We discussed her test results. Awaiting formal read on the CAT scan. She will be given a dose of IV Toradol for discomfort. Patient doing well at 3:38 AM on repeat exam. CAT scan was unremarkable. Patient doing well. Be discharged home. History & Record Review Discussion w/independent historian: Family Additional record(s) reviewed:: Prior inpatient record, Prior outpatient record, Prior ED visit and Prior labs Lab Data Attestation: I reviewed the patient's lab results. Lab results narrative: CBC unremarkable. White count 8. H&H 12.2 and 39. Platelets 270. Chemistries show a gap of 4. Normal BUN and creatinine 10 and 0.6. Glucose 96. Liver enzymes normal. Lipase normal at 20. Labs: Laboratory Results - last 24 hr 05/13/24 01:34 WBC 8.0 RBC 5.22 Hgb 12.2 Hct 39.9 MCV 76.4 L MCH 23.4 L MCHC 30.6 L RDW Std Deviation 40.1 RDW Coeff of Richard 14.6 Plt Count 270 MPV 12.9 H Immature Gran % (Auto) 0.100 Neut % (Auto) 61.4 Lymph % (Auto) 26.9 [place] % (Auto) 7.7 Eos % (Auto) 3.4 Baso % (Auto) 0.5 Absolute Neuts (auto) 4.9 Absolute Lymphs (auto) 2.14 Nucleated RBC % 0 Sodium 138 Potassium 4.0 Chloride 107 Carbon Dioxide 28.0 Anion Gap 4 L BUN 10 Creatinine 0.60 Estim Creat Clear Calc 172.73 Est GFR (MDRD) Af Amer 158 Est GFR (MDRD) Non-Af 130 BUN/Creatinine Ratio 16.7 Glucose 96 Calcium 9.0 Total Bilirubin 0.60 AST 16 ALT 80 H Alkaline Phosphatase 94 Total Protein 6.9 Albumin 3.3 Globulin 3.6 Albumin/Globulin Ratio 0.9 Lipase 20 Radiography Diagnostic Testing: Clinical Impression(s) from Imaging Studies Abdomen/Pelvis CT 05/13/24 01:13 IMPRESSION: Absent gallbladder with surgical clip in the gallbladder fossa. Trace amount of associated free fluid without significant focal organized fluid collection to suggest abscess. Dominant 2.1 cm left ovarian cyst. Stable significant splenomegaly from one year prior. Electronically Signed: Abundio Brooke MD at 3:13 EST , Discharge Plan Triage Chief Complaint: Abd Pain ED Provider: Mark Lutz Dx/Rx/DC Orders Clinical Impression: Abdominal pain, G6PD deficiency, Status post laparoscopic cholecystectomy Instructions: Abdominal Pain Prescriptions: No Action ondansetron 4 mg tablet,disintegrating 4 mg PO Q8H PRN PRN (Reason: Nausea) Qty: 10 0RF oxycodone 5 mg tablet 5 mg PO Q6H PRN (Reason: pain) 5 Days Qty: 14 0RF nystatin 100,000 unit/gram powder 1 applic topical BID Qty: 15 0RF oxycodone 5 mg tablet 5 mg PO Q8H PRN (Reason: pain) 3 Days Qty: 10 0RF Primary Care Provider: Care Physician,No Primary Referrals: Landon Salazar MD [Med Staff - Active Staff] - As soon as possible Care Physician,No Primary [Primary Care Provider] - Activity Restrictions/Additional Instructions: Tylenol and/or Motrin for pain or your pain medication. Follow-up with your general surgeon to ensure you are improving. Print Language: Tamazight Disposition Disposition: Home, Self Care
[2024-05-13] MEDS: morphine 8 MG/ML Syringe 6 MG IV (01:32)
[2024-05-13] MEDS: Ondansetron 4 MG/2 ML Vial IV (01:32)
[2024-05-13 01:42] LABS: Absolute Lymphocyte Count 2.14 X10^3/uL (0.83-4.51); Absolute Neutrophil Count 4.9 X10^3/uL (2.0-7.7); Basophil# 0.04 X10^3/uL; Basophil% 0.5 % (0-1); Eosinophil# 0.27 X10^3/uL; Eosinophils% 3.4 % (0-5); Hematocrit 39.9 % (37-47); Hemoglobin 12.2 g/dL (12.0-15.0); Lymphocyte # 2.14 X10^3/ul (0.83-4.51); Lymphocyte % 26.9 % (19-41); Mean Corp Hgb Conc 30.6 g/dL (32-36); Mean Corpuscular Hgb 23.4 pg (27.0-32.0); Mean Corpuscular Volume 76.4 fL (81-99); Mean Platelet Vol. 12.9 fl (6.2-12.0); Monocyte# 0.61 X10^3/uL; Monocyte% 7.7 % (0-10); NRBC Flagged by Analyzer 0 % (0-5); Neutrophil # 4.88 X10^3/uL (2.7-7.7); Neutrophil % 61.4 % (47-70); Platelet Count 270 K/mm3 (150-450); RBC Distribution Width CV 14.6 % (11.6-14.6); RBC Distribution Width SD 40.1 fl (35.1-43.9); Red Blood Count 5.22 M/mm3 (4.2-5.4)
[2024-05-13 01:59] LABS: ALB/GLOB Ratio 0.9 RATIO (0.9-2.4); AST(SGOT) 16 U/L (15-37); Alanine Aminotransfer ALT/SGPT 80 U/L (13-56); Albumin, Serum 3.3 g/dL (3.2-5.0); Alkaline Phosphatase 94 U/L (45-117); Anion Gap 4 (5-15); BUN 10 mg/dL (7-18); BUN/Creat Ratio 16.7 RATIO (10-20); Chloride 107 mmol/L (98-107); EST Glomerular Filtration Rate 130 mL/min (>60); Est Glom Filt Rate - Afr Amer 158 mL/min (>60); Estimated Creatinine Clearance 172.73 ml/min; Globulin 3.6 g/dL (2.2-4.2); Glucose 96 mg/dL (74-106); Lipase 20 U/L (13-75); Protein, Total 6.9 g/dL (6.4-8.2); Sodium Level 138 mmol/L (136-145)
[2024-05-13] MEDS: Ketorolac 30 MG/ML Syringe IV (02:26)
[2024-05-13 03:02] VITALS: BP 119/61; PULSE 81; RESP 16; O2SAT 97
[2024-05-13 03:40] VITALS: BP 129/76; PULSE 81; RESP 16; TEMP 36.6; O2SAT 98
== END 2024-05-13 03:42 | disposition home or self-care (01) ==
PROVIDERS: Emergency Provider Emergency Medicine; Visit Provider Emergency Medicine
DX: R10.13 Epigastric pain (principal); R10.11 Right upper quadrant pain; R11.0 Nausea; D75.A Glucose-6-phosphate dehydrogenase (G6PD) deficiency without anemia; D56.3 Thalassemia minor; Z88.0 Allergy status to penicillin; Z87.19 Personal history of other diseases of the digestive system; Z90.49 Acquired absence of other specified parts of digestive tract
CPT/HCPCS: 74177; 80053; 83690; 85025; 96374; 96375; 99283; Q9967; A4216; J2405

== ENCOUNTER 2024-07-26 12:36 | Emergency (ER) | payer MEDICAID, SELFPAY ==
[2024-07-26 12:37] VITALS: BP 192/89; PULSE 84; RESP 18; TEMP 36.9; O2SAT 100; BMI 39.9
--- NOTE | 2024-07-26 13:36 | EX.ED.DYSGE1 ---
HPI <RUTH Camacho - Last Filed: 07/26/24 16:07> History of Present Illness Chief Complaint: Abd Pain Narrative Narrative: 24-year-old female with past medical history of alpha thalassemia, G6PD deficiency, iron deficiency anemia, splenomegaly, cholecystectomy presents with left upper quadrant abdominal pain. She had intermittent dull LUQ pain for the of the week but about 45 minutes ago became more severe and comes in waves. The pain radiates towards her left flank. She has nausea but no vomiting. She reports normal bladder and bowel movements and denies melena or hematochezia. She denies recent postprandial pain. PFSH <RUTH Camacho - Last Filed: 07/26/24 16:07> PFS Medical History Wears glasses Marijuana use Anemia Asthma Non-smoker Bradycardia Hypertension Gallstones Cholecystitis Alpha thalassemia trait G6PD deficiency Iron deficiency anemia due to chronic blood loss Ankle fracture, left Ovarian cyst Splenomegaly Anxiety Home Medications ?Medication ?Instructions ?Recorded ?Last Taken ?Type nystatin 100,000 unit/gram topical 1 applic topical BID #15 grams 05/07/24 Unknown Rx powder Allergy/AdvReac Type Severity Reaction Status Date / Time Penicillins (PCN) Allergy Laryngospas Verified 07/26/24 12:37 ms Family History Mother Diabetes Hypertension Grandmother Cancer possibly SCLC, mets to brain; maternal Surgical History History of wisdom tooth extraction History of Social History Smoking Status: Never smoker alcohol intake: never substance use type: does not use ROS <RUTH Camacho - Last Filed: 07/26/24 16:07> ROS ED ROS Narrative Constitutional: Negative for fever, chills, malaise. CVS: Negative for palpitations, chest pain, syncope. Respiratory: Negative for shortness of breath, cough. GI: Negative for abdominal pain, nausea. Negative for vomiting, diarrhea, constipation, melena, hematochezia. : Negative for dysuria, hematuria or frequency. EXAM <RUTH Camacho - Last Filed: 07/26/24 16:07> Physical Exam Narrative Exam Narrative: CONST: Patient sitting in no acute distress. EYES: Normal inspection. NECK: Normal inspection. RESP: No respiratory distress, CTAB. CVS: Regular rate and rhythm, no murmur, no gallop. ABD: Soft with mild left upper quadrant tenderness, no guarding or rebound, nondistended. Back: Normal inspection, no CVA tenderness. SKIN: Color normal, no rash, warm, dry, intact. EXTREMITIES: Normal appearance, no pedal edema. NEURO: Alert and answering questions appropriately. PSYCH: Normal affect. Const Vital Signs: 07/26/24 12:37 07/26/24 14:36 07/26/24 16:00 Temperature 98.4 F 98.3 F 98.3 F Temperature Source Oral Oral Pulse Rate 84 58 L 66 Respiratory Rate 18 16 16 Blood Pressure 192/89 H 140/65 H 132/70 H Blood Pressure Mean 123 90 90 Pulse Ox 100 100 100 Oxygen Delivery Method Room Air Room Air <Dr. Mamadou Lino DO - Last Filed: 07/27/24 01:48> Physical Exam Const Vital Signs: 07/26/24 12:37 07/26/24 14:36 07/26/24 16:00 Temperature 98.4 F 98.3 F 98.3 F Temperature Source Oral Oral Pulse Rate 84 58 L 66 Respiratory Rate 18 16 16 Blood Pressure 192/89 H 140/65 H 132/70 H Blood Pressure Mean 123 90 90 Pulse Ox 100 100 100 Oxygen Delivery Method Room Air Room Air [facility] <RUTH Camacho - Last Filed: 07/26/24 16:07> [facility] Narrative Medical decision making narrative: Differential includes but not limited to GERD, gastritis, pancreatitis, kidney stone, spleen abnormality 24-year-old female with history of G6PD deficiency, splenomegaly presents with left upper quadrant abdominal pain x 1 week but worsening acutely today. She appears well and nontoxic. Vital signs are stable. She has a normal cardiopulmonary exam. She is minimally tender in the left upper quadrant without peritoneal signs. I cannot appreciate splenomegaly. She has no skin changes or signs of zoster. CBC, CMP, lipase are unremarkable. Urinalysis is negative. CT scan of the abdomen/pelvis shows possible mesenteric adenitis with no other acute abnormalities. Her spleen is normal size. She feels better after IV Toradol and Zofran and and I discussed there is no specific treatment for mesenteric adenitis. She should take [id number] pain medication as needed and follow-up with her doctor. Return if symptoms worsen. She was discharged in stable condition. Lab Data Attestation: I reviewed the patient's lab results. Labs: Laboratory Results - last 24 hr 07/26/24 07/26/24 13:50 14:08 WBC 5.7 RBC 5.31 Hgb 12.6 Hct 40.5 MCV 76.3 L MCH 23.7 L MCHC 31.1 L RDW Std Deviation 38.5 RDW Coeff of Richard 14.1 Plt Count 279 MPV 11.6 Immature Gran % (Auto) 0.400 Neut % (Auto) 53.3 Lymph % (Auto) 32.0 [place] % (Auto) 8.3 Eos % (Auto) 5.1 H Baso % (Auto) 0.9 Absolute Neuts (auto) 3.0 Absolute Lymphs (auto) 1.82 Nucleated RBC % 0 Sodium 141 Potassium 3.9 Chloride 108 H Carbon Dioxide 29.0 Anion Gap 4 L BUN 9 Creatinine 0.60 Estim Creat Clear Calc 177.45 Est GFR (MDRD) Af Amer 158 Est GFR (MDRD) Non-Af 130 BUN/Creatinine Ratio 15.0 Glucose 83 Calcium 9.1 Total Bilirubin 0.50 AST 15 ALT 27 Alkaline Phosphatase 77 Total Protein 7.4 Albumin 3.4 Globulin 4.0 Albumin/Globulin Ratio 0.8 L Lipase 22 Urine Color Yellow Urine Clarity Clear Urine pH 7.0 Ur Specific [place] 1.010 Urine Protein Negative Urine Glucose (UA) Normal Urine Ketones Negative Urine Occult Blood Negative Urine Nitrite Negative Urine Bilirubin Negative Urine Urobilinogen Normal Ur Leukocyte Esterase Negative Urine RBC 0 SEEN Urine WBC 0-5 SEEN Ur Squamous Epith Cells 5-10 SEEN Urine Bacteria 2+ Urine Mucus 0 SEEN Urine Test Negative Radiography Diagnostic Testing: Clinical Impression(s) from Imaging Studies Abdomen/Pelvis CT 07/26/24 14:18 IMPRESSION: 1. Multiple scattered mesenteric, cecal, periappendiceal, and periaortic lymph nodes. This can suggest mesenteric adenitis. 2. Urinary bladder wall has wall thickening. This can be related to a partially contractile state. However, a cystitis is not excluded. Urinalysis should be performed in an effort to exclude cystitis. Electronically Signed: Nando Sahu MD at 15:31 EST , <Dr. Mamadou Lino, DO - Last Filed: 07/27/24 01:48> MDM MDM Narrative Medical decision making narrative: Differential includes but not limited to GERD, gastritis, pancreatitis, kidney stone, spleen abnormality 24-year-old female with history of G6PD deficiency, splenomegaly presents with left upper quadrant abdominal pain x 1 week but worsening acutely today. She appears well and nontoxic. Vital signs are stable. She has a normal cardiopulmonary exam. She is minimally tender in the left upper quadrant without peritoneal signs. I cannot appreciate splenomegaly. She has no skin changes or signs of zoster. CBC, CMP, lipase are unremarkable. Urinalysis is negative. CT scan of the abdomen/pelvis shows possible mesenteric adenitis with no other acute abnormalities. Her spleen is normal size. She feels better after IV Toradol and Zofran and and I discussed there is no specific treatment for mesenteric adenitis. She should take [id number] pain medication as needed and follow-up with her doctor. Return if symptoms worsen. She was discharged in stable condition. Supervisory Physician Note Patient was seen and examined with the Advanced Practice Provider. Nursing notes and vital signs have been reviewed. Pertinent old records have been reviewed. I agree with the essential elements of the RON's history, physical exam, assessment, and plan. The differential diagnosis and management options were discussed with the RON. I participated in determining and agree with the management, procedures, final impression and disposition as documented. See changes noted by me. Please see addendum or separate note for any additional details. Lab Data Labs: Laboratory Results - last 24 hr 07/26/24 07/26/24 13:50 14:08 WBC 5.7 RBC 5.31 Hgb 12.6 Hct 40.5 MCV 76.3 L MCH 23.7 L MCHC 31.1 L RDW Std Deviation 38.5 RDW Coeff of Richard 14.1 Plt Count 279 MPV 11.6 Immature Gran % (Auto) 0.400 Neut % (Auto) 53.3 Lymph % (Auto) 32.0 [place] % (Auto) 8.3 Eos % (Auto) 5.1 H Baso % (Auto) 0.9 Absolute Neuts (auto) 3.0 Absolute Lymphs (auto) 1.82 Nucleated RBC % 0 Sodium 141 Potassium 3.9 Chloride 108 H Carbon Dioxide 29.0 Anion Gap 4 L BUN 9 Creatinine 0.60 Estim Creat Clear Calc 177.45 Est GFR (MDRD) Af Amer 158 Est GFR (MDRD) Non-Af 130 BUN/Creatinine Ratio 15.0 Glucose 83 Calcium 9.1 Total Bilirubin 0.50 AST 15 ALT 27 Alkaline Phosphatase 77 Total Protein 7.4 Albumin 3.4 Globulin 4.0 Albumin/Globulin Ratio 0.8 L Lipase 22 Urine Color Yellow Urine Clarity Clear Urine pH 7.0 Ur Specific [place] 1.010 Urine Protein Negative Urine Glucose (UA) Normal Urine Ketones Negative Urine Occult Blood Negative Urine Nitrite Negative Urine Bilirubin Negative Urine Urobilinogen Normal Ur Leukocyte Esterase Negative Urine RBC 0 SEEN Urine WBC 0-5 SEEN Ur Squamous Epith Cells 5-10 SEEN Urine Bacteria 2+ Urine Mucus 0 SEEN Urine Test Negative Radiography Diagnostic Testing: Clinical Impression(s) from Imaging Studies Abdomen/Pelvis CT 07/26/24 14:18 IMPRESSION: 1. Multiple scattered mesenteric, cecal, periappendiceal, and periaortic lymph nodes. This can suggest mesenteric adenitis. 2. Urinary bladder wall has wall thickening. This can be related to a partially contractile state. However, a cystitis is not excluded. Urinalysis should be performed in an effort to exclude cystitis. Electronically Signed: Nando Sahu MD at 15:31 EST Reading Location ID and State: [facility] / [place] , Service support , Discharge Plan Triage Chief Complaint: Abd Pain ED Midlevel Provider: Beverly Mariee ED Provider: Mamadou Lino Dx/Rx/DC Orders Clinical Impression: Mesenteric adenitis, Abdominal pain, left upper quadrant Instructions: ED Adenitis, Mesenteric Prescriptions: No Action nystatin 100,000 unit/gram powder 1 applic topical BID Qty: 15 0RF Primary Care Provider: Care Physician,No Primary Referrals: Care Physician,No Primary [Primary Care Provider] - Activity Restrictions/Additional Instructions: Your CT scan showed mesenteric adenitis which is swelling of the lymph nodes throughout your abdomen. This can cause pain in the abdomen. It is treated with time, Tylenol, and ibuprofen. Please follow-up with your primary care doctor. Print Language: Salvadorean Disposition Disposition: Home, Self Care Discharge Date/Time: 07/26/24 16:08
[2024-07-26 13:58] LABS: Absolute Lymphocyte Count 1.82 X10^3/uL (0.83-4.51); Basophil# 0.05 X10^3/uL; Basophil% 0.9 % (0-1); Eosinophil# 0.29 X10^3/uL; Eosinophils% 5.1 % (0-5); Hematocrit 40.5 % (37-47); Hemoglobin 12.6 g/dL (12.0-15.0); Lymphocyte # 1.82 X10^3/ul (0.83-4.51); Mean Corp Hgb Conc 31.1 g/dL (32-36); Mean Corpuscular Hgb 23.7 pg (27.0-32.0); Mean Corpuscular Volume 76.3 fL (81-99); Mean Platelet Vol. 11.6 fl (6.2-12.0); Monocyte# 0.47 X10^3/uL; Monocyte% 8.3 % (0-10); NRBC Flagged by Analyzer 0 % (0-5); Neutrophil # 3.04 X10^3/uL (2.7-7.7); Neutrophil % 53.3 % (47-70); Platelet Count 279 K/mm3 (150-450); RBC Distribution Width CV 14.1 % (11.6-14.6); RBC Distribution Width SD 38.5 fl (35.1-43.9); Red Blood Count 5.31 M/mm3 (4.2-5.4); White Blood Count 5.7 K/mm3 (4.4-11.0)
[2024-07-26] MEDS: Ondansetron 4 MG/2 ML Vial IV (14:01)
[2024-07-26] MEDS: Ketorolac 15 MG/ML Vial IV (14:02)
[2024-07-26 14:11] LABS: Mucous, Urine 0 SEEN /hpf (<or=2+); Red Blood Cells-Urine 0 SEEN /hpf (0-5)
[2024-07-26 14:13] LABS: ALB/GLOB Ratio 0.8 RATIO (0.9-2.4); AST(SGOT) 15 U/L (15-37); Alanine Aminotransfer ALT/SGPT 27 U/L (13-56); Albumin, Serum 3.4 g/dL (3.2-5.0); Alkaline Phosphatase 77 U/L (45-117); Anion Gap 4 (5-15); BUN 9 mg/dL (7-18); Calcium,Total 9.1 mg/dL (8.5-10.1); Chloride 108 mmol/L (98-107); EST Glomerular Filtration Rate 130 mL/min (>60); Est Glom Filt Rate - Afr Amer 158 mL/min (>60); Estimated Creatinine Clearance 177.45 ml/min; Glucose 83 mg/dL (74-106); Lipase 22 U/L (13-75); Potassium 3.9 mmol/L (3.5-5.1); Protein, Total 7.4 g/dL (6.4-8.2); Sodium Level 141 mmol/L (136-145)
--- NOTE | 2024-07-26 14:18 | CT_ITS ---
EXAM: CT ABDOMEN AND PELVIS WITH INTRAVENOUS CONTRAST CLINICAL INDICATION: lefy upper abdominal pain. G6PD DEFICIENCY. NIURKA TECHNIQUE: Helically acquired images were obtained of the abdomen and pelvis with intravenous contrast. This CT exam was performed using one or more of the following dose reduction techniques: automated exposure control, adjustment of the mA and/or kV according to patient size, and/or use of iterative reconstruction technique. CONTRAST: IV 100mL Isovue-370 RADIATION DOSE: CTDIvol = 26.08 mGy, DLP = 1873.05 mGy-cm COMPARISON: 05.13.24 FINDINGS: LOWER THORAX: Unremarkable. Lung bases are clear. No cardiomegaly. No significant pericardial effusion. ABDOMEN: LIVER: Unremarkable. Homogeneous. No focal mass. GALLBLADDER AND BILE DUCTS: Cholecystectomy changes. No intra- or extrahepatic biliary ductal dilation. PANCREAS: Unremarkable. No focal cystic or solid mass. SPLEEN: Unremarkable. Normal size without focal cystic or solid mass. ADRENALS: Unremarkable. No nodules. KIDNEYS AND URETERS: Unremarkable. Normal renal size and position. No hydronephrosis. STOMACH AND BOWEL: Unremarkable. No stomach or bowel distention. No focal inflammatory change. PELVIS: APPENDIX: Multiple scattered mesenteric, cecal, periappendiceal, and periaortic lymph nodes. This can suggest mesenteric adenitis. BLADDER: Urinary bladder wall has wall thickening. This can be related to a partially contractile state. However, a cystitis is not excluded. Urinalysis should be performed in an effort to exclude cystitis. REPRODUCTIVE: Uterus is unremarkable. 18 mm right and 14 mm left ovarian cyst. ABDOMEN and PELVIS: INTRAPERITONEAL SPACE: Unremarkable. No ascites or other fluid collection. No free air. BONES/JOINTS: Unremarkable. No suspicious lytic or blastic abnormality. SOFT TISSUES: Umbilical hernia containing fat. VASCULATURE: Unremarkable. Abdominal aorta is non-dilated. LYMPH NODES: See above. CT/Abdomen/Pelvis W IV Cont ONLY IMPRESSION: 1. Multiple scattered mesenteric, cecal, periappendiceal, and periaortic lymph nodes. This can suggest mesenteric adenitis. 2. Urinary bladder wall has wall thickening. This can be related to a partially contractile state. However, a cystitis is not excluded. Urinalysis should be performed in an effort to exclude cystitis. Electronically Signed: Nando Sahu MD at 15:31 EST ,
[2024-07-26 14:20] LABS: Color, Urine Yellow (Yellow); Glucose, Dipstick Normal (Normal); Ketone-Dipstick Negative (Negative); Leukocyte Esterase-Dipstick Negative /ul (Negative); Nitrite-Dipstick Negative (Negative); Occult Blood-Urine Negative /ul (Negative); Protein-Dipstick Negative (Negative); Urine Bilirubin Dipstick Negative (Negative); Urine Clarity Clear (Clear); Urine Urobilinogen Normal (Normal)
[2024-07-26 14:27] LABS: Bacteria 2+ /hpf (None Seen); Squamous Epithelial Cells - UA 5-10 SEEN /hpf (5-10); White Blood Cells 0-5 SEEN /hpf (0-5)
[2024-07-26 14:28] LABS: Internal QC Validated? YES +Cl - CLEAR BKGD; Pregnancy, Urine Negative Negative
[2024-07-26 14:36] VITALS: BP 140/65; PULSE 58; RESP 16; TEMP 36.8; O2SAT 100
[2024-07-26 16:00] VITALS: BP 132/70; PULSE 66; RESP 16; TEMP 36.8; O2SAT 100
== END 2024-07-26 16:08 | disposition home or self-care (01) ==
PROVIDERS: Physician Assistant; Emergency Provider Surgery; Visit Provider Surgery
DX: I88.0 Nonspecific mesenteric lymphadenitis (principal); R10.12 Left upper quadrant pain
CPT/HCPCS: 74177; 80053; 81001; 81025; 83690; 85025; 96374; 96375; 99283; Q9967; A4216; J2405

== ENCOUNTER 2024-10-30 00:18 | Emergency (ER) | payer MEDICAID, SELFPAY ==
[2024-10-30 00:20] VITALS: BP 160/85; PULSE 65; RESP 18; TEMP 36.6; O2SAT 100; BMI 43.3
[2024-10-30 00:21] VITALS: BP 160/85; PULSE 70; RESP 18; TEMP 36.6; O2SAT 98
--- NOTE | 2024-10-30 00:34 | EDS_ITS ---
HPI HPI - URI History of Present Illness Chief Complaint: Sore Throat Detail of Chief Complaint: Cough and sore throat Informant: patient Narrative Narrative: Patient presents with cough and sore throat and congestion that she has had for little over a week. Patient states that she has mostly dry cough at times brings up some clear phlegm. She has had no fever. Occasionally has had some chills. Denies sick contacts. Patient unsure if she has allergies. Sometimes when she coughs she has some mild discomfort in her chest. ROS ROS ED Review of Systems ROS Unobtainable: other Constitutional Constitutional ED: Reports chills and lethargy; Denies fever(s), sweats or weight loss Eyes Eyes: Denies blurry vision, change in vision or diplopia ENT ENT ED: Reports sore throat; Denies rhinorrhea Cardiovascular Cardiovascular: Reports chest pain; Denies orthopnea or racing heartbeat Respiratory/Chest Respiratory/Chest: Reports cough; Denies dyspnea, dyspnea on exertion, orthopnea or sputum Gastrointestinal Gastrointestinal: Denies abdominal pain, diarrhea, nausea or vomiting Genitourinary Genitourinary ED: Denies dysuria, hematuria or urinary frequency Musculoskeletal Musculoskeletal: Denies arthralgias, back pain, myalgias or neck pain Integumentary Denies abscess, Abrasions or rash Neurologic Neurologic: Reports headache(s); Denies weakness Psychiatric Psychiatric: Denies anxiety, depression or suicidal thoughts Endocrine Endocrinology: Denies polydipsia, polyphagia or polyuria Hematologic/Lymphatic Hematologic/Lymphatic: Denies easy bleeding, easy bruising or lymphadenopathy Allergic/Immunologic Allergic/Immunologic ED: Denies mouth swelling, tongue swelling or urticaria PFSH PFSH Medical History Wears glasses Marijuana use Anemia Asthma Non-smoker Bradycardia Hypertension Gallstones Cholecystitis Alpha thalassemia trait G6PD deficiency Iron deficiency anemia due to chronic blood loss Ankle fracture, left Ovarian cyst Splenomegaly Anxiety Home Medications ?Medication ?Instructions ?Recorded ?Last Taken ?Type NK 10/30/24 Unknown History Allergy/AdvReac Type Severity Reaction Status Date / Time Penicillins (PCN) Allergy Laryngospas Verified 10/30/24 00:19 ms Family History Mother Diabetes Hypertension Grandmother Cancer possibly SCLC, mets to brain; maternal Surgical History History of wisdom tooth extraction History of Social History Smoking Status: Never smoker alcohol intake: never substance use type: does not use EXAM Physical Exam Const Vital Signs: 10/30/24 00:20 10/30/24 00:21 10/30/24 00:22 Temperature 98 F 98 F Temperature Source Oral Oral Pulse Rate 65 70 Respiratory Rate 18 18 Respiratory Effort Normal Non-Labored Respiratory Depth Normal Respiratory Pattern Normal Blood Pressure 160/85 H 160/85 H Blood Pressure Mean 110 110 Pulse Ox 100 98 Oxygen Delivery Method Room Air Room Air Room Air Positive well nourished and well developed General Appearance ED: well developed and NAD HEENT Reports TM's clear and moist mucous membranes normocephalic and atraumatic; Negative for trauma or tenderness Tympanic Membrane ED: Yes TM's clear Eyes PERRL and EOMs intact bilaterally General Eye ED: Negative for pale conjunctiva or scleral icterus Neck no lymphadenopathy, supple and no JVD General: Negative for tenderness Chest Wall inspection of chest normal and palpation of chest normal Chest: Negative for tenderness Resp normal respiratory effort and clear to auscultation bilaterally Effort and Inspection: Negative for respiratory distress or pain with movement Auscultation: Negative for rhonchi, wheezes or diminished lung sounds Cardio regular rate, regular rhythm, S1 normal heart sound, S2 normal heart sound and no murmurs Peripheral Pulses: pulses 2+ throughout GI normal to inspection, nondistended, normoactive bowel sounds, soft to palpation, non-tender, non-distended and no masses Back/Spine no CVA tenderness and no thoracic nor lumbar tenderness Extremity normal to inspection General Extremety ED: Negative for edema General Extremity: Negative for edema Neuro oriented x3, CN's II-XII intact bilaterally, no sensory deficits noted and gait normal Sensorium / Orientation: awake, alert, oriented to person, oriented to place and oriented to time Motor Exam: strength 5/5 throughout and strength abnormal Psych mental status grossly normal Skin no rashes or lesions noted and no wounds MDM MDM MDM Narrative Medical decision making narrative: Patient presents with cough and some congestion for over a week. She has a sore throat. Her Centor score here is a 0 out of 4. Lung exam is normal. Vital signs are stable. Clinically she looks well. Discussed obtaining COVID flu and RSV testing however given that she has had symptoms for over a week she would not qualify for any type of treatment other than symptomatic relief. Feel it would be unlikely that she was still contagious. She would like to forego the any testing. Recommended she use Zyrtec or Claritin for possible allergy type symptoms as she has had some runny eyes and some nasal congestion at times. Advised to use ibuprofen for any discomfort. Advised to follow-up with primary care physician on-call for no doc within next 5 to 7 days. Advised to return if increasing shortness of breath or condition worsen anyway. Discharge Plan Triage Chief Complaint: Sore Throat Other Complaint: Cough ED Provider: Smiley Bo Dx/Rx/DC Orders Clinical Impression: Viral URI Instructions: ED URI, Viral, No Abx (Adult) Prescriptions: No Action NK Primary Care Provider: Care Physician,No Primary Referrals: Jb Rojas MD [Med Staff - Active Staff] - 5-7 Days Care Physician,No Primary [Primary Care Provider] - Print Language: Botswanan Disposition Disposition: Home, Self Care
[2024-10-30 00:41] VITALS: BP 134/88; PULSE 87; RESP 15; TEMP 36.6; O2SAT 100
== END 2024-10-30 00:41 | disposition home or self-care (01) ==
PROVIDERS: Emergency Provider Emergency Medicine; Visit Provider Emergency Medicine
DX: J06.9 Acute upper respiratory infection, unspecified (principal); Z88.0 Allergy status to penicillin
CPT/HCPCS: 99283

== ENCOUNTER 2024-12-20 18:45 | Emergency (ER) | payer MEDICAID, SELFPAY ==
[2024-12-20 18:46] VITALS: BP 164/86; PULSE 98; RESP 16; TEMP 36.9; O2SAT 99; BMI 42.4
--- NOTE | 2024-12-20 19:22 | EKG12_ITS ---
Test Reason : gen ill Blood Pressure : */* mmHG Vent. Rate : 62 BPM Atrial Rate : 62 BPM P-R Int : 186 ms QRS Dur : 82 ms QT Int : 386 ms P-R-T Axes : 53 28 32 degrees QTcB Int : 391 ms Normal sinus rhythm with sinus arrhythmia Normal ECG Confirmed by VINAYAK GOOD, MARY GRACE ([id number]), news assignment editor SARAH VINCENT ([id number]) on 12/22/2024 6:46:03 AM Referred By: Confirmed By: MARY GRACE LICEA MD
--- NOTE | 2024-12-20 19:22 | CT_ITS ---
PROCEDURE: CTA HEAD W/WO CONTRAST 12/20/2024 REASON FOR EXAM: HEADACHE TECHNIQUE: CTA HEAD W/WO CONTRAST Multiplanar Sagittal and Coronal images were obtained. Three-dimensional reconstructions were performed and evaluated CONTRAST: 91 cc Isovue One or more dose reduction techniques were used (e.g., Automated exposure control, adjustment of the mA and/or kV according to patient size, use of iterative reconstruction technique). FINDINGS: CT angiographic study of the head demonstrates patent distal cervical internal carotid arteries. Normal petrous, precavernous and cavernous internal carotid arteries. Normal ophthalmic origins. Normal right MCA and right JULIAN vessels. On the left, normal left M1 and M2 branches. No visible aneurysm. Posterior cerebral arteries patent on both sides. No basilar stenosis. Sigmoid sinuses and transverse sinuses are patent. Negative for sagittal sinus thrombosis. CT/CTA Head W/WO Contrast IMPRESSION: Study within normal limits Reading [facility]
[2024-12-20] MEDS: Aspirin 81 MG TAB.CHEW 324 MG PO (19:41)
[2024-12-20 19:42] LABS: Absolute Lymphocyte Count 2.27 X10^3/uL (0.83-4.51); Absolute Neutrophil Count 3.7 X10^3/uL (2.0-7.7); Basophil# 0.04 X10^3/uL; Basophil% 0.6 % (0-1); Eosinophil# 0.29 X10^3/uL; Eosinophils% 4.2 % (0-5); Hematocrit 35.3 % (37-47); Hemoglobin 10.8 g/dL (12.0-15.0); Lymphocyte # 2.27 X10^3/ul (0.83-4.51); Lymphocyte % 32.8 % (19-41); Mean Corp Hgb Conc 30.6 g/dL (32-36); Mean Corpuscular Hgb 22.5 pg (27.0-32.0); Mean Corpuscular Volume 73.5 fL (81-99); Mean Platelet Vol. 11.9 fl (6.2-12.0); Monocyte# 0.58 X10^3/uL; Monocyte% 8.4 % (0-10); NRBC Flagged by Analyzer 0 % (0-5); Neutrophil # 3.74 X10^3/uL (2.7-7.7); Neutrophil % 53.9 % (47-70); Platelet Count 305 K/mm3 (150-450); RBC Distribution Width CV 14.8 % (11.6-14.6); RBC Distribution Width SD 39.6 fl (35.1-43.9); White Blood Count 6.9 K/mm3 (4.4-11.0)
--- NOTE | 2024-12-20 20:05 | RAD_ITS ---
PROCEDURE: CHEST PA AND LATERAL 12/20/2024 REASON FOR EXAM: CHEST PAIN TECHNIQUE: CHEST PA AND LATERAL COMPARISON: 05/03/2024 FINDINGS: No focal consolidation. No pleural effusion or pneumothorax. Cardiac silhouette is within normal limits. No acute fractures. RAD/Chest PA and Lateral IMPRESSION: No focal consolidations. Reading Location: [id number]
[2024-12-20 20:10] LABS: Anion Gap 10 (5-15); BUN 7 mg/dL (4-19); BUN/Creat Ratio 11.7 RATIO (10-20); Calcium,Total 8.8 mg/dL (7.6-11.0); Carbon Dioxide 24.3 mmol/L (21.0-32.0); Chloride 106 mmol/L (98-108); Creatinine, Serum 0.61 mg/dL (0.70-1.20); EST Glomerular Filtration Rate 128 (>60); Estimated Creatinine Clearance 174.29 ml/min (50-250); Glucose 93 mg/dL (70-99); Potassium 3.9 mmol/L (3.3-5.1); Sodium Level 140 mmol/L (133-145)
[2024-12-20 20:15] LABS: Troponin T High Sensitivity < 6 ng/L (<=14)
--- OUTSIDE RECORDS SUMMARY | 2024-12-20 20:19 | XMS RPT_ITS | CCD ---
Author Organization [facility] Care Team Providers Care Manager Employee Relations Name Role Phone Care Physician, No Primary Primary Care Provider Unavailable Care Physician, No Primary Referring Provider Un Dr. Landon Self Attending Provider Dr. Michelle Kowalski Attending Provider Dr. Landon Salazar Referring Provider ELISABETH DAVID DO Attending Unavailable MATTHEW GOOD, AZAM Tejada Attending Unavail able SOCO JACKSON, DR RODOLFO Mejia Attending Unavailable NIYAH MANCINI Attending Unavailable Mark Lutz Attending Unavailable Care Physician, No Primary Primary Care Unava ilable Mark Lutz Attending Unavailable Care Physician, No Primary Primary Care Unava ilable Care Physician, No Primary Primary Care Unava ilable Landon Salazar Attending Unavailable Landon Salazar Referring Unavailable Landon Salazar Attending Unavailable Landon Salazar Referring Unavailable Care Physician, No Primary Primary Care Unava ilable Care Physician, No Primary Primary Care Unava ilable Mamadou Lino Attending Unavailabl e Care Physician, No Primary Referring Unava ilable Care Physician, No Primary Primary Care Unava ilable Vanessa Webb Attending Unavailable Care Physician, No Primary Referring Unava ilable Landon Salazar Attending Unavailable Care Physician, No Primary Primary Care Unava ilable Care Physician, No Primary Referring Unava ilable Care Physician, No Primary Primary Care Unava ilable Landon Salazar Attending Unavailable Landen Sinclair Attending Unavailable Care Physician, No Primary Primary Care Unava ilable Lee Bennett Referring Unavailable Care Physician, No Primary Primary Care Unava ilable Landon Salazar Referring Unavailable Landon Salazar Consulting Unavailable Landon Salazar Attending Unavailable Smiley Bo Attending Unavailable Care Physician, No Primary Primary Care Unava ilable Care Physician, No Primary Primary Care Unava ilable Gibson Dallas Attending Unavailable Care Physician, No Primary Primary Care Unava Errol Marino Attending Unavailable Unavailable Primary Care Provider Unavailabl e Allergies Allergy Classification Reported Allergen(s) Allergy Type Date of Onset Reaction(s) Facility (4 sources) Penicillins Allergy to substance 3 Laryngospasms [facility] (2 sources) Penicillin; Translations: [penicillin] Drug Allergy Anaphylaxis (disorder) [facility] (1 source) Penicillins Drug allergy (disorder) 5 [facility] Repository (1 source) Penicillins Drug Allergy 5 Unknown [facility] Medications Current Medications Medication Drug Class(es) Dates Sig (Normalized) Sig (Original) bacitracin 0.5 unt/mg topical ointment (1 source) Start: 09-06-2023 Bacitracin Active 1 APPLIC TOPICAL TWICE A DAY 14 5 September 06, 2023 12:00am 24 hr desvenlafaxine succinate 50 mg extended release oral tablet (2 sources) Serotonin and Norepinephrine Reuptake Inhibitor Start: 03-18-2023 take 1 tablet by mouth once daily, then take 1 tablet by mouth every twenty-four hours Desvenlafaxine Succinate (Pristiq) 50 mg tablet extended release 24 hr Active 50 MG PO DAILY March 17, 2023 11:00pm famotidine 20 mg oral tablet (2 sources) Histamine-2 Receptor Antagonist Start: 08-18-2023 Pepcid 20 mg oral tablet Dose : 20 mg = 1 tab(s), Oral, BID, # 30 tab(s), 0 Refill(s) Start Date: 08/18/23 Status: Ordered hydrOXYzine hydrochloride 25 mg oral tablet (4 sources) Antihistamine Start: 11-12-2022 take 25 mg by mouth three times daily Hydroxyzine Hcl Active 25 MG PO THREE TIMES A DAY November 11, 2022 11:00pm lamoTRIgine 25 mg oral tablet (2 sources) Mood Stabilizer, Anti-epileptic Agent Start: 03-28-2023 take 25 mg by mouth once daily Lamotrigine Active 25 MG PO DAILY March 27, 2023 11:00pm ondansetron 4 mg disintegrating oral tablet (1 source) Serotonin-3 Receptor Antagonist Start: 08-18-2023 End: 08-22-2023 ondansetron 4 mg oral tablet, disintegrating Dose : 4 mg = 1 tab(s), Oral, q6h, X 4 day(s), # 16 tab(s), 0 Refill(s), 08/22/23 9:17:00 PM EST Start Date: 08/18/23 Stop Date: 08/22/23 Status: Ordered Completed/Discontinued Medications Medication Drug Class(es) Dates Sig (Normalized) Sig (Original) atomoxetine 40 mg oral capsule (2 sources) Norepinephrine Reuptake Inhibitor Start: 03-06-2023 End: 03-18-2023 take 1 capsule by mouth once daily Atomoxetine (Strattera) 40 mg capsule Discontinued 50 MG PO DAILY March 05, 2023 11:00pm March 18, 2023 8:56am escitalopram 10 mg oral tablet (2 sources) Serotonin Reuptake Inhibitor Start: 03-06-2023 End: 03-18-2023 take 1 tablet by mouth once daily Escitalopram Oxalate (Lexapro) 10 mg tablet Discontinued 10 MG PO DAILY March 05, 2023 11:00pm March 18, 2023 8:56am lithium carbonate 150 mg oral capsule (2 sources) Start: 03-06-2023 End: 03-28-2023 take 150 mg by mouth [address] [facility] [place] Carbonate Discontinued 150 MG PO ONCE March 05, 2023 11:00pm March 28, 2023 2:04pm Problems Active Problems Problem Classification Problem Date Documented Da te Episodic/Chronic Abdominal pain (5 sources) Abdominal pain; Translations: [Unspecified abdominal pain] Onset: 08-18-2023 Episodic Anxiety disorders (2 sources) Anxiety; Translations: [Anxiety disorder, unspecified] 06-24-2023 Chronic [place] (1 source) Partial thickness burn; Translations: [Partial thickness burn] 09-06-2023 Episodic Deficiency and other anemia (2 sources) Alpha trait thalassemia; Translations: [Thalassemia minor] 03-28-2023 Chronic Deficiency and other anemia (2 sources) 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 loss; Translations: [Iron deficiency anemia secondary to blood loss (chronic)] 03-28-2023 Chronic Deficiency and other anemia (2 sources) Deficiency of swbaemr-8-oywaqlbld dehydrogenase; Translations: [Ngmwuxn-7-hskyepqz e dehydrogenase (G6PD) deficiency without anemia] 03-28-2023 Chronic Essential hypertension (2 sources) Hypertensive disorder; Translations: [Essential (primary) hypertension] 03-06-2023 Chronic Lymphadenitis (3 sources) Mesenteric lymphadenopathy; Translations: [Localized enlarged lymph nodes] 03-01-2023 Episodic Other gastrointestinal disorders (2 sources) Splenomegaly; Translations: [Splenomegaly, not elsewhere classified] 03-18-2023 Episodic Other gastrointestinal disorders (3 sources) Splenomegaly, not elsewhere classified; Translations: [Splenomegaly] 03-06-2023 Episodic Other injuries and conditions due to external causes (1 source) Injury of right hand; Translations: [Unspecified injury of right wrist, hand and finger(s), initial encounter] 12-17-2024 Episodic Other upper respiratory infections (3 sources) Viral upper respiratory tract infection; Translations: [Acute upper respiratory infection, unspecified] Onset: 11-02-2024 06-24-2023 Episodic Viral infection (1 source) Viral disease; Translations: [Other viral agents as the cause of diseases classified elsewhere] Onset: 10-13-2023 Episodic Past or Other Problems Problem Classification Problem Date Documented Date Episodic/Chronic Biliary tract disease (9 sources) Biliary calculus; Translations: [Calculus of gallbladder without cholecystitis without obstruction] Onset: 04-30-2024 03-01-2023 Episodic Other lower respiratory disease (1 source) Shortness of breath; Translations: [Shortness of breath] Onset: 02-06-2024 Episodic Results Test Name Value Interpretation Reference Range Facility Emergency Department Summary on 10-30-2024 Emergency Department Summary [facility] Medical Records Department [address] [place] [id number] Emergency Department Summary 10/30/24 MR#: [id number] Acct: [id number] Name: NATASHA ARCE Rep #: [id number] : 2000 24 From: Smiley Bo DO PCP: Care Physician,No Primary Status:DEP ER Location: ED HPI HPI - URI History of Present Illness Chief Complaint: Sore Throat Detail of Chief Complaint: Cough and sore throat Informant: patient Narrative Narrative: Patient presents with cough and sore throat and congestion that she has had for little over a week. Patient states that she has mostly dry cough at times brings up some clear phlegm. She has had no fever. Occasionally has had some chills. Denies sick contacts. Patient unsure if she has allergies. Sometimes when she coughs she has some mild discomfort in her chest. ROS ROS ED Review of Systems ROS Unobtainable: other Constitutional Constitutional ED: Reports chills and lethargy; Denies fever(s), sweats or weight loss Eyes Eyes: Denies blurry vision, change in vision or diplopia ENT ENT ED: Reports sore throat; Denies rhinorrhea Cardiovascular Cardiovascular: Reports chest pain; Denies orthopnea or racing heartbeat Respiratory/Chest Respiratory/Chest: Reports cough; Denies dyspnea, dyspnea on exertion, orthopnea or sputum Gastrointestinal Gastrointestinal: Denies abdominal pain, diarrhea, nausea or vomiting Genitourinary Genitourinary ED: Denies dysuria, hematuria or urinary frequency Musculoskeletal Musculoskeletal: Denies arthralgias, back pain, myalgias or neck pain Integumentary Denies abscess, Abrasions or rash Neurologic Neurologic: Reports headache(s); Denies weakness Psychiatric Psychiatric: Denies anxiety, depression or suicidal thoughts Endocrine Endocrinology: Denies polydipsia, polyphagia or polyuria Hematologic/Lymphatic Hematologic/Lymphatic: Denies easy bleeding, easy bruising or lymphadenopathy Allergic/Immunologic Allergic/Immunologic ED: Denies mouth swelling, tongue swelling or urticaria PFSH PFSH Medical History Wears glasses Marijuana use Anemia Asthma Non-smoker Bradycardia Hypertension Gallstones Cholecystitis Alpha thalassemia trait G6PD deficiency Iron deficiency anemia due to chronic blood loss Ankle fracture, left Ovarian cyst Splenomegaly Anxiety Home Medications ???Medication ???Instructions ???Recorded ???Last Taken ???Type NK 10/30/24 Unknown History Allergy/AdvReac Type Severity Reaction Status Date / Time Penicillins (PCN) Allergy Laryngospas Verified 10/30/24 00:19 ms Family History Mother Diabetes Hypertension Grandmother Cancer possibly SCLC, mets to brain; maternal Surgical History History of wisdom tooth extraction History of Social History Smoking Status: Never smoker alcohol intake: never substance use type: does not use EXAM Physical Exam Const Vital Signs: 10/30/24 00:20 10/30/24 00:21 10/30/24 00:22 Temperature 98 F 98 F Temperature Source Oral Oral Pulse Rate 65 70 Respiratory Rate 18 18 Respiratory Effort Normal Non-Labored Respiratory Depth Normal Respiratory Pattern Normal Blood Pressure 160/85 H 160/85 H Blood Pressure Mean 110 110 Pulse Ox 100 98 Oxygen Delivery Method Room Air Room Air Room Air Positive well nourished and well developed General Appearance ED: well developed and NAD HEENT Reports TM's clear and moist mucous membranes normocephalic and atraumatic; Negative for trauma or tenderness Tympanic Membrane ED: Yes TM's clear Eyes PERRL and EOMs intact bilaterally General Eye ED: Negative for pale conjunctiva or scleral icterus Neck no lymphadenopathy, supple and no JVD General: Negative for tenderness Chest Wall inspection of chest normal and palpation of chest normal Chest: Negative for tenderness Resp normal respiratory effort and clear to auscultation bilaterally Effort and Inspection: Negative for respiratory distress or pain with movement Auscultation: Negative for rhonchi, wheezes or diminished lung sounds Cardio regular rate, regular rhythm, S1 normal heart sound, S2 normal heart sound and no murmurs Peripheral Pulses: pulses 2+ throughout GI normal to inspection, nondistended, normoactive bowel sounds, soft to palpation, non-tender, non- distended and no masses Back/Spine no CVA tenderness and no thoracic nor lumbar tenderness Extremity normal to inspection General Extremety ED: Negative for edema General Extremity: Negative for edema Neuro oriented x3, CN's II-XII intact bilate (more content not included)... Normal [facility] Abdomen/Pelvis W IV Cont ONL Yon 07-26-2024 Abdomen/Pelvis W IV Cont ONLY [facility] Imaging Services [address] [place], [place] [address] Abdomen/Pelvis W IV Cont ONLY MR#: [id number] Acct: [id number] Name: NATASHA ARCE Rep #: [id number] : 2000 F 24 From: Nando Robert PCP: Care Physician,No Primary Status: REG ER Study: Abdomen/Pelvis W IV Cont ONLY Date of Exam: Exam# [id number] Ordering Dr: Beverly Mariee [id number] EXAM: CT ABDOMEN AND PELVIS WITH INTRAVENOUS CONTRAST CLINICAL INDICATION: lefy upper abdominal pain. G6PD DEFICIENCY. NIURKA TECHNIQUE: Helically acquired images were obtained of the abdomen and pelvis with intravenous contrast. This CT exam was performed using one or more of the following dose reduction techniques: automated exposure control, adjustment of the mA and/or kV according to patient size, and/or use of iterative reconstruction technique. CONTRAST: IV 100mL Isovue-370 RADIATION DOSE: CTDIvol = 26.08 mGy, DLP = 1873.05 mGy-cm COMPARISON: 05.13.24 FINDINGS: LOWER THORAX: Unremarkable. Lung bases are clear. No cardiomegaly. No significant pericardial effusion. ABDOMEN: LIVER: Unremarkable. Homogeneous. No focal mass. GALLBLADDER AND BILE DUCTS: Cholecystectomy changes. No intra- or extrahepatic biliary ductal dilation. PANCREAS: Unremarkable. No focal cystic or solid mass. SPLEEN: Unremarkable. Normal size without focal cystic or solid mass. ADRENALS: Unremarkable. No nodules. KIDNEYS AND URETERS: Unremarkable. Normal renal size and position. No hydronephrosis. STOMACH AND BOWEL: Unremarkable. No stomach or bowel distention. No focal inflammatory change. PELVIS: APPENDIX: Multiple scattered mesenteric, cecal, periappendiceal, and periaortic lymph nodes. This can suggest mesenteric adenitis. BLADDER: Urinary bladder wall has wall thickening. This can be related to a partially contractile state. However, a cystitis is not excluded. Urinalysis should be performed in an effort to exclude cystitis. REPRODUCTIVE: Uterus is unremarkable. 18 mm right and 14 mm left ovarian cyst. ABDOMEN and PELVIS: INTRAPERITONEAL SPACE: Unremarkable. No ascites or other fluid collection. No free air. BONES/JOINTS: Unremarkable. No suspicious lytic or blastic abnormality. SOFT TISSUES: Umbilical hernia containing fat. VASCULATURE: Unremarkable. Abdominal aorta is non-dilated. LYMPH NODES: See above. CT/Abdomen/Pelvis W IV Cont ONLY IMPRESSION: 1. Multiple scattered mesenteric, cecal, periappendiceal, and periaortic lymph nodes. This can suggest mesenteric adenitis. 2. Urinary bladder wall has wall thickening. This can be related to a partially contractile state. However, a cystitis is not excluded. Urinalysis should be performed in an effort to exclude cystitis. 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, [address] Absolute Neut 3.0 X10 3/uL Normal 2.0-7.7 [facility] Comment on above: Performed By: #### L 501.2450, L100.0100, [id number] #### [facility] [address] [place], [address] Basophils/100 WBC (Bld) 0.9 % Normal 0-1 [facility] Comment on above: Performed By: #### L 501.2450, L100.0100, [id number] #### [facility] [address] [place], [address] Eosinophils/100 WBC (Bld) 5.1 % High 0-5 [facility] Comment on above: Performed By: #### L 501.2450, L100.0100, [id number] #### [facility] [address] [place], [address] Erythrocyte distribution width (RBC) [Ratio] 14.1 % Normal 11.6-14.6 [facility] Comment on above: Performed By: #### L 501.2450, L100.0100, L500.4050 #### [facility] [address] [place], [address] Hematocrit (Bld) [Volume fraction] 40.5 % Normal 37-47 [facility] Comment on above: Performed By: #### L 501.2450, L100.0100, L500.4050 #### [facility] [address] [place], [address] Hemoglobin (Bld) [Mass/Vol] 12.6 g/dL Normal 12.0-15.0 [facility] Comment on above: Performed By: #### L 501.2450, L100.0100, L500.4050 #### [facility] [address] [place], [address] IG% 0.400 Normal 0.0-0.9 [facility] Comment on above: Result Comment: IG% - Immature Granulocytes (promyelocytes, myelocytes and metamyelocytes) > 1% indicates that a LEFT SHIFT is Present. Performed By: #### L 501.2450, L100.0100, L500.4050 #### [facility] [address] [place], [address] Lymphocytes/100 WBC (Bld) 32.0 % Normal 19-41 [facility] Comment on above: Performed By: #### L 501.2450, L100.0100, [id number] #### [facility] [address] [place], [address] MCH (RBC) [Entitic mass] 23.7 pg Low 27.0-32.0 [facility] Comment on above: Performed By: #### L 501.2450, L100.0100, L500.4050 #### [facility] [address] [place], [address] MCHC (RBC) [Mass/Vol] 31.1 g/dL Low 32-36 [facility] Comment on above: Performed By: #### L 501.2450, L100.0100, L500.4050 #### [facility] [address] [place], [address] MCV (RBC) [Entitic vol] 76.3 fL Low 81-99 [facility] Comment on above: Performed By: #### L 501.2450, L100.0100, [id number] #### [facility] [address] [place], [address] Monocytes/100 WBC (Bld) 8.3 % Normal 0-10 [facility] Comment on above: Performed By: #### L 501.2450, L100.0100, L500.4050 #### [facility] [address] [place], [address] Neutrophils/100 WBC (Bld) 53.3 % Normal 47-70 [facility] Comment on above: Performed By: #### L 501.2450, L100.0100, L500.4050 #### [facility] [address] [place], [address] Nucleated RBC (Bld) [#/Vol] 0 10*3/uL Normal 0-5 [facility] Comment on above: Performed By: #### L 501.2450, L100.0100, L500.4050 #### [facility] [address] [place], [address] Platelet mean volume (Bld) [Entitic vol] 11.6 fL Normal 6.2-12.0 [facility] Comment on above: Performed By: #### L 501.2450, L100.0100, L500.4050 #### [facility] [address] [place], [address] Platelets (Bld) [#/Vol] 279 10*3/uL Normal 150-450 [facility] Comment on above: Performed By: #### L 501.2450, L100.0100, L500.4050 #### [facility] [address] [place], [address] RBC (Bld) [#/Vol] 5.31 10*6/uL Normal 4.2-5.4 [facility] Comment on above: Performed By: #### L 501.2450, L100.0100, L500.4050 #### [facility] [address] [place], [address] RDW SD 38.5 fl Normal 35.1-43.9 [facility] Comment on above: Performed By: #### L 501.2450, L100.0100, L500.4050 #### [facility] [address] [place], [address] WBC (Bld) [#/Vol] 5.7 10*3/uL Normal 4.4-11.0 [facility] Comment on above: Performed By: #### L 501.2450, L100.0100, L500.4050 #### [facility] [address] [place], [address] Comprehensive Metabolic Prof [facility] 07-26-2024 Albumin [Mass/Vol] 3.4 g/dL Normal 3.2-5.0 [facility] Comment on above: Performed By: #### L 501.2450, L100.0100, L500.4050 #### [facility] [address] [place], [address] Albumin/Globulin [Mass ratio] 0.8 {ratio} Low 0.9-2.4 [facility] Comment on above: Performed By: #### L 501.2450, L100.0100, L500.4050 #### [facility] [address] [place], [address] ALK P 77 U/L Normal 45-117 [facility] Comment on above: Performed By: #### L 501.2450, L100.0100, L500.4050 #### [facility] [address] [place], [address] ALT [Catalytic activity/Vol] 27 U/L Normal 13-56 [facility] Comment on above: Performed By: #### L 501.2450, L100.0100, L500.4050 #### [facility] [address] [place], [address] AST [Catalytic activity/Vol] 15 U/L Normal 15-37 [facility] Comment on above: Performed By: #### L 501.2450, L100.0100, L500.4050 #### [facility] [address] [place], [address] Bilirubin [Mass/Vol] 0.50 mg/dL Normal 0.20-1.00 [facility] Comment on above: Result Comment: For patients on eltrombopag therapy, use of Dimension [place] TBIL is not recommended. Performed By: #### L 501.2450, L100.0100, L500.4050 #### [facility] [address] [place], [address] BUN/CRE 15.0 RATIO Normal 10-20 [facility] Comment on above: Performed By: #### L 501.2450, L100.0100, [id number] #### [facility] [address] [place], [address] CA,Total 9.1 mg/dL Normal 8.5-10.1 [facility] Comment on above: Performed By: #### L 501.2450, L100.0100, L500.4050 #### [facility] [address] [place], [address] Chloride [Moles/Vol] 108 mmol/L High 98-107 [facility] Comment on above: Performed By: #### L 501.2450, L100.0100, L500.4050 #### [facility] [address] [place], [address] CO2 [Moles/Vol] 29.0 mmol/L Normal 21.0-32.0 [facility] Comment on above: Performed By: #### L 501.2450, L100.0100, L500.4050 #### [facility] [address] [place], [address] Creatinine [Mass/Vol] 0.60 mg/dL Normal 0.55-1.02 [facility] Comment on above: Result Comment: The validity of the calculated GFR GFRAA in patients over 70 years has not been determined. Clinical correlation is essential. Performed By: #### L 501.2450, L100.0100, L500.4050 #### [facility] [address] [place], [address] ECRCL 177.45 ml/min Normal [facility] Comment on above: Performed By: #### L 501.2450, L100.0100, L500.4050 #### [facility] [address] [place], [address] EST GFR - AA 158 mL/min Normal >60 [facility] Comment on above: Result Comment: Afri can [place] Island[place] GFR Calc Performed By: #### L 501.2450, L100.0100, L500.4050 #### [facility] [address] [place], [address] GAP 4 Low 5-15 [facility] Comment on above: Performed By: #### L 501.2450, L100.0100, L500.4050 #### [facility] [address] [place], [address] GFR/1.73 sq M.predicted among non-blacks MDRD (S/P/Bld) [Vol rate/Area] 130 mL/min/{1.73_m2} Normal >60 [facility] Comment on above: Result Comment: Non- GFR Calc Performed By: #### L 501.2450, L100.0100, L500.4050 #### [facility] [address] [place], [address] Globulin (S) [Mass/Vol] 4.0 g/dL Normal 2.2-4.2 [facility] Comment on above: Performed By: #### L 501.2450, L100.0100, L500.4050 #### [facility] [address] [place], [address] Glucose [Mass/Vol] 83 mg/dL Normal 74-106 [facility] Comment on above: Performed By: #### L 501.2450, L100.0100, L500.4050 #### [facility] [address] [place], [address] Potassium [Moles/Vol] 3.9 mmol/L Normal 3.5-5.1 [facility] Comment on above: Performed By: #### L 501.2450, L100.0100, L500.4050 #### [facility] [address] [place], [address] Sodium [Moles/Vol] 141 mmol/L Normal 136-145 [facility] Comment on above: Performed By: #### L 501.2450, L100.0100, L500.4050 #### [facility] [address] [place], [address] T PROT 7.4 g/dL Normal 6.4-8.2 [facility] Comment on above: Performed By: #### L 501.2450, L100.0100, L500.4050 #### [facility] [address] [place], [address] Urea nitrogen [Mass/Vol] 9 mg/dL Normal 7-18 [facility] Comment on above: Performed By: #### L 501.2450, L100.0100, L500.4050 #### [facility] [address] [place], [address] Emergency Department Summary on 07-26-2024 Emergency Department Summary [facility] Medical Records Department [address] [place] [address] Emergency Department Summary 07/26/24 MR#: [id number] Acct: [id number] Name: NATASHA ARCE Rep #: [id number] : 2000 24 From: Mamadou Lino DO PCP: Care Physician,No Primary Status:DEP ER Location: ED HPI History of Present Illness Chief Complaint: Abd Pain Narrative Narrative: 24-year-old female with past medical history of alpha thalassemia, G6PD deficiency, iron deficiency anemia, splenomegaly, cholecystectomy presents with left upper quadrant abdominal pain. She had intermittent dull LUQ pain for the of the week but about 45 minutes ago became more severe and comes in waves. The pain radiates towards her left flank. She has nausea but no vomiting. She reports normal bladder and bowel movements and denies melena or hematochezia. She denies recent postprandial pain. [facility] Medical History Wears glasses Marijuana use Anemia Asthma Non-smoker Bradycardia Hypertension Gallstones Cholecystitis Alpha thalassemia trait G6PD deficiency Iron deficiency anemia due to chronic blood loss Ankle fracture, left Ovarian cyst Splenomegaly Anxiety Home Medications ???Medication ???Instructions ???Recorded ???Last Taken ???Type nystatin 100,000 unit/gram topical 1 applic topical BID #15 grams 05/07/24 Unknown Rx powder Allergy/AdvReac Type Severity Reaction Status Date / Time Penicillins (PCN) Allergy Laryngospas Verified 07/26/24 12:37 ms Family History Mother Diabetes Hypertension Grandmother Cancer possibly SCLC, mets to brain; maternal Surgical History History of wisdom tooth extraction History of Social History Smoking Status: Never smoker alcohol intake: never substance use type: does not use ROS ROS ED ROS Narrative Constitutional: Negative for fever, chills, malaise. CVS: Negative for palpitations, chest pain, syncope. Respiratory: Negative for shortness of breath, cough. GI: Negative for abdominal pain, nausea. Negative for vomiting, diarrhea, constipation, melena, hematochezia. : Negative for dysuria, hematuria or frequency. EXAM Physical Exam Narrative Exam Narrative: CONST: Patient sitting in no acute distress. EYES: Normal inspection. NECK: Normal inspection. RESP: No respiratory distress, CTAB. CVS: Regular rate and rhythm, no murmur, no gallop. ABD: Soft with mild left upper quadrant tenderness, no guarding or rebound, nondistended. Back: Normal inspection, no CVA tenderness. SKIN: Color normal, no rash, warm, dry, intact. EXTREMITIES: Normal appearance, no pedal edema. NEURO: Alert and answering questions appropriately. PSYCH: Normal affect. Const Vital Signs: 07/26/24 12:37 07/26/24 14:36 07/26/24 16:00 Temperature 98.4 F 98.3 F 98.3 F Temperature Source Oral Oral Pulse Rate 84 58 L 66 Respiratory Rate 18 16 16 Blood Pressure 192/89 H 140/65 H 132/70 H Blood Pressure Mean 123 90 90 Pulse Ox 100 100 100 Oxygen Delivery Method Room Air Room Air Physical Exam Const Vital Signs: 07/26/24 12:37 07/26/24 14:36 07/26/24 16:00 Temperature 98.4 F 98.3 F 98.3 F Temperature Source Oral Oral Pulse Rate 84 58 L 66 Respiratory Rate 18 16 16 Blood Pressure 192/89 H 140/65 H 132/70 H Blood Pressure Mean 123 90 90 Pulse Ox 100 100 100 Oxygen Delivery Method Room Air Room Air MDM MDM MDM Narrative Medical decision making narrative: Differential includes but not limited to GERD, gastritis, pancreatitis, kidney stone, spleen abnormality 24-year-old female with history of G6PD deficiency, splenomegaly presents with left upper quadrant abdominal pain x 1 week but worsening acutely today. She appears well and nontoxic. Vital signs are stable. She has a normal cardiopulmonary exam. She is minimally tender in the left upper quadrant without peritoneal signs. I cannot appreciate splenomegaly. She has no skin changes or signs of zoster. CBC, CMP, lipase are unremarkable. Urinalysis is negative. CT scan of the abdomen/pelvis shows possible mesenteric adenitis with no other acute abnormalities. Her spleen is normal size. She feels better after IV Toradol and Zofran and and I discussed there is no specific treatment for mesenteric adenitis. She should take [id number] pain medication as needed and follow-up with her doctor. Return if symptoms worsen. She was discharged in stable condition. Lab Data Attestation: I reviewed the patient's lab results. Labs: Laboratory Results - la (more content not included)... Normal [facility] Lipaseon 07-26-2024 Lipase [Catalytic activity/Vol] 22 U/L Normal 13-75 [facility] Comment on above: Result Comment: Damián rivera note: LIPASE revised reference range effective 22. New Lipase methodology. Expected to produce lower values than the previous assay method. NEW Reference Range: 13 - 75 U/L Performed By: #### L 501.2450, L100.0100, L500.4050 #### [facility] [address] [place], [address] ,Urineon 07-26-2024 Beta HCG ( test) Ql (U) Negative Normal [facility] Comment on above: Order Comment: CLEAN CATCH Result Comment: Very dilute urine specimens, as indicated by a low specific gravity, may not contain chemical sales representative levels of hCG. If is still suspected, a first morning urine specimen should be collected 48 hours later and tested. Performed By: #### L 400.0001, L400.7600 #### [facility] [address] [place], [address] Urinalysis, Completeon 07-26 BACTERIA 2+ /hpf Normal None Seen [facility] Comment on above: Order Comment: CLEAN CATCH Performed By: #### L 400.0001, L400.7600 #### [facility] [address] [place], [address] EPI,SQUAMOUS 5-10 SEEN Normal 5-10 [facility] Comment on above: Order Comment: CLEAN CATCH Performed By: #### L 400.0001, L400.7600 #### [facility] [address] [place], [address] WBC 0-5 SEEN Normal 0-5 [facility] Comment on above: Order Comment: CLEAN CATCH Performed By: #### L 400.0001, L400.7600 #### [facility] [address] [place], [address] Mucus Ql (Urine sed) [address] [facility] Comment on above: Order Comment: CLEAN CATCH Performed By: #### L 400.0001, L400.7600 #### [facility] [address] [place], [address] RBC 0 SEEN Normal 0-5 [facility] Comment on above: Order Comment: CLEAN CATCH Performed By: #### L 400.0001, L400.7600 #### [facility] [address] [place], [address] Surgery Visit Reporton 05-21 Surgery Visit Report [facility] [address] [place] [address] OFFICE VISIT Date of Service: 05/21/24 MR#: [id number] Acct: [id number] Name: NATASHA ARCE Rep #: [id number] : 2000 Provider: MINA ferrer Age/Sex: 24/F Location: [facility] Status: Signed Intake Vital Signs 05/07/24 12:56 05/13/24 01:03 Height 5 ft 5 in 5 ft 5 in Intake Visit Reasons: GALLBLADDER 11-7 Chief Complaint: gallbladder 11-7 Is patient in pain?: No (only when lying down ) Allergies Penicillins (PCN) Allergy (Verified 05/21/24 13:01) Laryngospasms Medications ???Medication ???Instructions ???Recorded ???Confirmed ???Type nystatin 100,000 unit/gram topical 1 applic topical BID #15 grams 05/07/24 Rx powder Subjective Details: Patient is a 24 y/o F s/p laparoscopic cholecystectomy with intraoperative cholangiogram by Dr. Salazar on 05/07/24. Patient tolerated the procedure well. She noted post-operatively, her two-year old had jumped and landed on her abdomen causing pain. She states then she was having pain into her chest and palpitations. She went to the ED where she had a CT scan which was unremarkable. She notes since that visit she has not had any further symptoms. She notes appetite have returned to normal. Sh enotes bowel habits have returned to normal. Pathology demonstrated Chronic cholecystitis and cholelithiasis. Objective Details: Abdomen- soft, nontender. Incisions c/d/i. No erythema or infection noted. Coding Level of Care Code Global Post Op Diagnoses Status post laparoscopic cholecystectomy Z90.49 [facility] Medical History Wears glasses Marijuana use Anemia Asthma Non-smoker Bradycardia Hypertension Gallstones Cholecystitis Alpha thalassemia trait G6PD deficiency Iron deficiency anemia due to chronic blood loss Ankle fracture, left Ovarian cyst Splenomegaly Anxiety Surgical History History of wisdom tooth extraction History of Family History Mother Diabetes Hypertension Grandmother Cancer possibly SCLC, mets to brain; maternal Social History Smoking Status: Never smoker alcohol intake: never substance use type: does not use Assessment and Plan (No Qualifiers) Assessment and Plan (1) Status post laparoscopic cholecystectomy: Status: Acute Plan: No restrictions at this time Follow-up as needed 05/21/24 1334 Date Vanessa Vazquez Signature: Date (if applicable) CC: Normal [facility] Abdomen/Pelvis W IV Cont ONL Yon 05-13-2024 Abdomen/Pelvis W IV Cont ONLY [facility] Imaging Services [address] [place] [address] Abdomen/Pelvis W IV Cont ONLY MR#: [id number] Acct: [id number] Name: NATASHA ARCE Rep #: [id number] : 2000 F 24 From: Abundio Brooke MD PCP: Care Physician,No Primary Status: REG ER Study: Abdomen/Pelvis W IV Cont ONLY Date of Exam: Exam# [id number] Ordering Dr: Mark Lutz MD [id number] INDICATION: abd pain s/p lap niurka last week COMPARISON: Gallbladder ultrasound 05/03/[address] 04/26/2024 and 03/01/2023. IV Contrast dosage and agent: 100 cc Isovue-370 IV. A radiation dose optimization technique was used for this scan. RADIATION DOSAGE (If Supplied By Facility): CTDIvol/DLP = ( 16.95 ) / ( 1284.11 ) mGy/mGycm FINDINGS: Contrast enhanced serial CT axial images through the abdomen and pelvis with coronal and sagittal reformatted series. PANCREAS: No peripancreatic fat stranding. BOWEL/MESENTERY: No dilated bowel loops. No free air. GALLBLADDER: Absent gallbladder with surgical clip in the gallbladder fossa. Trace amount of free fluid without significant focal organized fluid collection to suggest abscess. Small amount of free fluid within the dependent pelvis as well. LIVER/STOMACH: No obvious abnormality. APPENDIX: Normal caliber appendix. UTERUS/ADNEXA: 21 mm rim-enhancing dominant left ovarian cyst. URINARY COLLECTING SYSTEM/ KIDNEYS: No obstructing ureteral calculus. No significant renal parenchymal abnormality. SPLEEN: Splenomegaly measuring up to 17 cm in the craniocaudal dimension again noted. LUNG BASES: Unremarkable. BONES: Unremarkable for age. CT/Abdomen/Pelvis W IV Cont ONLY IMPRESSION: Absent gallbladder with surgical clip in the gallbladder fossa. Trace amount of associated free fluid without significant focal organized fluid collection to suggest abscess. Dominant 2.1 cm left ovarian cyst. Stable significant splenomegaly from one year prior. Electronically Signed: Abundio Brooke MD at 3:13 EST , CC: Dr. Mark Lutz MD; No Primary Care Physician Airplane Dispatch Clerk: Signed Normal [facility] CBC W/Diff, Automatedon 05-01 Absolute Lymph 2.14 X10 3/uL Normal 0.83-4.51 [facility] Comment on above: Performed By: #### L 100.0100, L501.2450, L500.4050 ####[facility] [address] [place], [address] Absolute Neut 4.9 X10 3/uL Normal 2.0-7.7 [facility] Comment on above: Performed By: #### L 100.0100, L501.2450, L500.4050 ####[facility] [address] [place], [address] Basophils/100 WBC (Bld) 0.5 % Normal 0-1 [facility] Comment on above: Performed By: #### L 100.0100, L501.2450, L500.4050 ####[facility] [address] [place], [address] Eosinophils/100 WBC (Bld) 3.4 % Normal 0-5 [facility] Comment on above: Performed By: #### L 100.0100, L501.2450, L500.4050 ####[facility] [address] [place], [address] Erythrocyte distribution width (RBC) [Ratio] 14.6 % Normal 11.6-14.6 [facility] Comment on above: Performed By: #### L 100.0100, L501.2450, L500.4050 ####[facility] [address] [place], [address] Hematocrit (Bld) [Volume fraction] 39.9 % Normal 37-47 [facility] Comment on above: Performed By: #### L 100.0100, L501.2450, L500.4050 ####[facility] [address] [place], [address] Hemoglobin (Bld) [Mass/Vol] 12.2 g/dL Normal 12.0-15.0 [facility] Comment on above: Performed By: #### L 100.0100, L501.2450, L500.4050 ####[facility] [address] [place], [address] IG% 0.100 Normal 0.0-0.9 [facility] Comment on above: Result Comment: IG% - Immature Granulocytes (promyelocytes, myelocytes and metamyelocytes) > 1% indicates that a LEFT SHIFT is Present. Performed By: #### L 100.0100, L501.2450, L500.4050 ####[facility] [address] [place], [address] Lymphocytes/100 WBC (Bld) 26.9 % Normal 19-41 [facility] Comment on above: Performed By: #### L 100.0100, L501.2450, L500.4050 ####[facility] [address] [place], [address] MCH (RBC) [Entitic mass] 23.4 pg Low 27.0-32.0 [facility] Comment on above: Performed By: #### L 100.0100, L501.2450, L500.4050 ####[facility] [address] [place], [address] MCHC (RBC) [Mass/Vol] 30.6 g/dL Low 32-36 [facility] Comment on above: Performed By: #### L 100.0100, L501.2450, L500.4050 ####[facility] [address] [place], [address] MCV (RBC) [Entitic vol] 76.4 fL Low 81-99 [facility] Comment on above: Performed By: #### L 100.0100, L501.2450, L500.4050 ####[facility] [address] [place], [address] Monocytes/100 WBC (Bld) 7.7 % Normal 0-10 [facility] Comment on above: Performed By: #### L 100.0100, L501.2450, L500.4050 ####[facility] [address] [place], [address] Neutrophils/100 WBC (Bld) 61.4 % Normal 47-70 [facility] Comment on above: Performed By: #### L 100.0100, L501.2450, L500.4050 ####[facility] [address] [place], [address] Nucleated RBC (Bld) [#/Vol] 0 10*3/uL Normal 0-5 [facility] Comment on above: Performed By: #### L 100.0100, L501.2450, L500.4050 ####[facility] [address] [place], [address] Platelet mean volume (Bld) [Entitic vol] 12.9 fL High 6.2-12.0 [facility] Comment on above: Performed By: #### L 100.0100, L501.2450, L500.4050 ####[facility] [address] [place], [address] Platelets (Bld) [#/Vol] 270 10*3/uL Normal 150-450 [facility] Comment on above: Performed By: #### L 100.0100, L501.2450, L500.4050 ####[facility] [address] [place], [address] RBC (Bld) [#/Vol] 5.22 10*6/uL Normal 4.2-5.4 [facility] Comment on above: Performed By: #### L 100.0100, L501.2450, L500.4050 ####[facility] [address] [place], [address] RDW SD 40.1 fl Normal 35.1-43.9 [facility] Comment on above: Performed By: #### L 100.0100, L501.2450, L500.4050 ####[facility] [address] [place], [address] WBC (Bld) [#/Vol] 8.0 10*3/uL Normal 4.4-11.0 [facility] Comment on above: Performed By: #### L 100.0100, L501.2450, L500.4050 ####[facility] [address] [place], [address] Comprehensive Metabolic [facility] 05-13-2024 Albumin [Mass/Vol] 3.3 g/dL Normal 3.2-5.0 [facility] Comment on above: Performed By: #### L 100.0100, L501.2450, L500.4050 ####[facility] [address] [place], [address] Albumin/Globulin [Mass ratio] 0.9 {ratio} Normal 0.9-2.4 [facility] Comment on above: Performed By: #### L 100.0100, L501.2450, L500.4050 ####[facility] [address] [place], [address] ALK P 94 U/L Normal 45-117 [facility] Comment on above: Performed By: #### L 100.0100, L501.2450, L500.4050 ####[facility] [address] [place], [address] ALT [Catalytic activity/Vol] 80 U/L High 13-56 [facility] Comment on above: Performed By: #### L 100.0100, L501.2450, L500.4050 ####[facility] [address] [place], [address] AST [Catalytic activity/Vol] 16 U/L Normal 15-37 [facility] Comment on above: Performed By: #### L 100.0100, L501.2450, L500.4050 ####[facility] [address] [place], [address] Bilirubin [Mass/Vol] 0.60 mg/dL Normal 0.20-1.00 [facility] Comment on above: Result Comment: For patients on eltrombopag therapy, use of Dimension [place] TBIL is not recommended. Performed By: #### L 100.0100, L501.2450, L500.4050 ####[facility] [address] [place], [address] BUN/CRE 16.7 RATIO Normal 10-20 [facility] Comment on above: Performed By: #### L 100.0100, L501.2450, L500.4050 ####[facility] [address] [place], [address] CA,Total 9.0 mg/dL Normal 8.5-10.1 [facility] Comment on above: Performed By: #### L 100.0100, L501.2450, L500.4050 ####[facility] [address] [place], [address] Chloride [Moles/Vol] 107 mmol/L Normal 98-107 [facility] Comment on above: Performed By: #### L 100.0100, L501.2450, L500.4050 ####[facility] [address] [place], [address] CO2 [Moles/Vol] 28.0 mmol/L Normal 21.0-32.0 [facility] Comment on above: Performed By: #### L 100.0100, L501.2450, L500.4050 ####[facility] [address] [place], [address] Creatinine [Mass/Vol] 0.60 mg/dL Normal 0.55-1.02 [facility] Comment on above: Result Comment: The validity of the calculated GFR GFRAA in patients over 70 years has not been determined. Clinical correlation is essential. Performed By: #### L 100.0100, L501.2450, L500.4050 ####[facility] [address] [place], [address] ECRCL 172.73 ml/min Normal [facility] Comment on above: Performed By: #### L 100.0100, L501.2450, L500.4050 ####[facility] [address] [place], [address] EST GFR - AA 158 mL/min Normal >60 [facility] Comment on above: Result Comment: Afri can [place] Island[place] GFR Calc Performed By: #### L 100.0100, L501.2450, L500.4050 ####[facility] [address] [place], [address] GAP 4 Low 5-15 [facility] Comment on above: Performed By: #### L 100.0100, L501.2450, L500.4050 ####[facility] [address] [place], [address] GFR/1.73 sq M.predicted among non-blacks MDRD (S/P/Bld) [Vol rate/Area] 130 mL/min/{1.73_m2} Normal >60 [facility] Comment on above: Result Comment: Non- GFR Calc Performed By: #### L 100.0100, L501.2450, L500.4050 ####[facility] [address] [place], [address] Globulin (S) [Mass/Vol] 3.6 g/dL Normal 2.2-4.2 [facility] Comment on above: Performed By: #### L 100.0100, L501.2450, L500.4050 ####[facility] [address] [place], [address] Glucose [Mass/Vol] 96 mg/dL Normal 74-106 [facility] Comment on above: Performed By: #### L 100.0100, L501.2450, L500.4050 ####[facility] [address] [place], [address] Potassium [Moles/Vol] 4.0 mmol/L Normal 3.5-5.1 [facility] Comment on above: Performed By: #### L 100.0100, L501.2450, L500.4050 ####[facility] [address] [place], [address] Sodium [Moles/Vol] 138 mmol/L Normal 136-145 [facility] Comment on above: Performed By: #### L 100.0100, L501.2450, L500.4050 ####[facility] [address] [place], [address] T PROT 6.9 g/dL Normal 6.4-8.2 [facility] Comment on above: Performed By: #### L 100.0100, L501.2450, L500.4050 ####[facility] [address] [place], [address] Urea nitrogen [Mass/Vol] 10 mg/dL Normal 7-18 [facility] Comment on above: Performed By: #### L 100.0100, L501.2450, L500.4050 ####[facility] [address] [place], [address] Emergency Department Summary on 05-13-2024 Emergency Department Summary [facility] Medical Records Department [address] [place] [address] Emergency Department Summary 05/13/24 MR#: [id number] Acct: [id number] Name: NATASHA ARCE Rep #: [id number] : 2000 24 From: Mark Lutz MD PCP: Care Physician,No Primary Status:REG ER Location: ED HPI HPI - GI History of Present Illness Chief Complaint: Abd Pain Informant: patient Abdominal Pain/Flank Pain Onset: Days Context: Gradual Onset Timing: Continuous Quality: Sharp Location: Epigastric and RUQ Current Severity: Moderate Maximum Severity: Moderate Worsened by: Nothing Relieved by: Nothing Nausea/Vomiting/Emesis GI Symptom: Positive for Nausea; Negative for Vomiting Diarrhea/Melena/Hemato chezia GI Symptom: Negative for Diarrhea, Melena or Hematochezia Associated Symptoms Associated Symptoms: Negative for Dysuria, Frequency, Hematuria or Urgency Narrative Narrative: 24-year-old female status post laparoscopic cholecystectomy done by Dr. Landon Salazar last . She has a history of G6PD deficiency, anemia and a prior 2 years ago. Complaining of epigastric pain radiating to her right upper quadrant and flank. Denies any dysuria. Denies any hematuria. Had a recent negative test. Has nausea no vomiting or diarrhea. Denies any fever. Prior similar symptoms: Yes Recent Illness/Hospitalizatio n: No PFSH PFSH Medical History Wears glasses Marijuana use Anemia Asthma Non-smoker Bradycardia Hypertension Gallstones Cholecystitis Alpha thalassemia trait G6PD deficiency Iron deficiency anemia due to chronic blood loss Ankle fracture, left Ovarian cyst Splenomegaly Anxiety Home Medications ???Medication ???Instructions ???Recorded ???Last Taken ???Type ondansetron 4 mg disintegrating 4 mg PO Q8H PRN PRN Nausea #10 tabs 04/26/24 Unknown Rx tablet nystatin 100,000 unit/gram topical 1 applic topical BID #15 grams 05/07/24 Unknown Rx powder oxycodone 5 mg tablet 5 mg PO Q6H PRN pain 5 days #14 05/07/24 Unknown Rx tabs oxycodone 5 mg tablet 5 mg PO Q8H PRN pain 3 days #10 05/09/24 Unknown Rx tabs Allergy/AdvReac Type Severity Reaction Status Date / Time Penicillins (PCN) Allergy Laryngospas Verified 05/13/24 01:03 ms Family History Mother Diabetes Hypertension Grandmother Cancer possibly SCLC, mets to brain; maternal Surgical History History of wisdom tooth extraction History of Social History Smoking Status: Never smoker alcohol intake: never substance use type: does not use ROS ROS ED ROS Narrative Epigastric and right upper quadrant flank abdominal pain. Nausea. Constitutional Constitutional ED: Denies chills or fever(s) ENT ENT ED: Denies ear pain Cardiovascular Cardiovascular: Denies chest pain Respiratory/Chest Respiratory/Chest: Denies cough or dyspnea Gastrointestinal Gastrointestinal: Reports abdominal pain and nausea; Denies constipation, diarrhea, melena or vomiting Genitourinary Genitourinary ED: Denies dysuria or hematuria Musculoskeletal Musculoskeletal: Denies arthralgias Integumentary Denies abscess Neurologic Neurologic: Denies headache(s) Endocrine Endocrinology: Denies polydipsia Hematologic/Lymphatic Hematologic/Lymphatic: Denies easy bleeding Allergic/Immunologic Allergic/Immunologic ED: Denies mouth swelling EXAM Physical Exam Narrative Exam Narrative: Well-appearing 24-year-old female. Vital signs are stable afebrile. Pulse ox 100% on room air no hypoxia. H EENT exam unremarkable. Moist mucous membranes. Neck nontender. Lungs clear. Heart regular rate and rhythm rate about 85 no murmur. Chest wall ribs nontender. Abdomen soft, nondistended normal bowel sounds without peritoneal signs. She has 3 well-healing laparoscopic incisions that are epigastric, right upper quadrant and periumbilical. They are dry and clean. She has mild epigastric right upper quadrant tenderness. Not to be unexpected since her recent surgery. There is no distention or signs of obstruction. No hernia or mass. Abdomen soft. Moving all 4 extremities. Nontender no edema. Back nontender. She is awake and alert. Const Vital Signs: 05/13/24 01:03 05/13/24 01:06 05/13/24 03:02 Temperature 97.3 F L Temperature Source Temporal Pulse Rate 86 81 Respiratory Rate 18 16 Blood Pressure 144/122 H 119/61 Blood Pressure Mean 129 80 Pulse Ox 100 97 Oxygen Delivery Method Room Air Room Air Positive well nourished and well developed; Negative for cachectic, contractures or unkempt General Appearance ED (more content not included)... Normal [facility] Lipaseon 05-13-2024 Lipase [Catalytic activity/Vol] 20 U/L Normal 13-75 [facility] Comment on above: Result Comment: Damián rivera note: LIPASE revised reference range effective 22. New Lipase methodology. Expected to produce lower values than the previous assay method. NEW Reference Range: 13 - 75 U/L Performed By: #### L 100.0100, L501.2450, L500.4050 ####[facility] [address] [facility] [place], [address] MR/[id number] 05-08-2024 MR/POSTOPAN2 [facility] Medical Records Department [address] [place] [address] Anesthesia Postop Eval II 05/08/24 1653 MR#: [id number] Acct: [id number] Name: NATASHA ARCE Rep #: [id number] : 2000 24 From: Lee Bennett MD PCP: Care Physician,No Primary Status:[facility] Y Race: AA [place] [facility] [place]esthesia Postop Eval I Sum Postop Eval Completion status Anesthesia document: Postop Eval 1 completed: Yes Anesthesia Postop Eval I Summary Anesthesia Postop Eval I Summary: Anesthesia Postop Eval I: Assessment Summary Airway patent Yes 05/07/24 15:59 COSMETOLOGY TEACHER.SKOBY Spontaneous unlabored Yes 05/07/24 15:59 COSMETOLOGY TEACHER.SKOBY respirations Mental status Awake,Calm 05/07/24 15:59 COSMETOLOGY TEACHER.SKOBY nausea No 05/07/24 15:59 COSMETOLOGY TEACHER.SKOBY Vomiting No 05/07/24 15:59 COSMETOLOGY TEACHER.SKOBY Anesthesia Postop Eval I: Fluid Summary Crystalloid volume administer 1,400 05/07/24 15:59 COSMETOLOGY TEACHER.ДМИТРИЙOBKarl (ml) Colloids volume administered ( ml) Blood Product volume administered (ml) Total IV fluid infused 1,400 05/07/24 15:59 COSMETOLOGY TEACHER.SKOBY Anesthesia Postop Eval I: Summary Notes Anesthesia Complication No 05/07/24 15:59 COSMETOLOGY TEACHER.SKOBY Anesthesia Complication Comment: Post-operative progress note Anesthesia: Postop Eval II Evaluation Mental status: Awake and Calm Pain Level: 1 nausea: No Vomiting: No Complications Anesthesia Complication: No 05/08/24 1653 Date Lee Vazquez Signature: Date CC: Signed Normal [facility] 12 Lead EKGon 05-07-2024 12 Lead EKG [facility] Cardiovascular Services [address] [place] [address] 12 Lead EKG 05/07/24 1214 MR#: [id number] Acct: [id number] Name: NATASHA ARCE Rep #: [id number] : 2000 24 From: Landen Sinclair MD Attending Dr: Dr. Landon Salazar MD Status: DEP [facility] Ordering Dr: Ramon Crowder MD Date: 05/07/24 Location: [facility] Sex: F AA Admitted: Test Reason : PREOP Blood Pressure : */* mmHG Vent. Rate : 59 BPM Atrial Rate : 59 BPM P-R Int : 172 ms QRS Dur : 86 ms QT Int : 390 ms P-R-T Axes : 49 33 37 degrees QTcB Int : 386 ms Sinus bradycardia with sinus arrhythmia Otherwise normal ECG When compared with ECG of 03-May-2024 11:42, No significant change was found Confirmed by VINAYAK GOOD, LANDEN ([id number]), manuscript editor VANESSA HOPE ([id number]) on 05/11/2024 12:35:17 PM Referred By: Landon Salazar Confirmed By: LANDEN SINCLAIR MD 05/11/24 1235 Date Landen Sinclair MD CC: Dr. Ramon Crowder MD; Dr. Landon Salazar MD; No Primary Care Physician Signed Normal [facility] Cholangiogram/ O R,Initialon 05-07-2024 Cholangiogram/ O R,Initial [facility] Imaging Services [address] [place] [address] Cholangiogram/ O R,Initial MR#: [id number] Acct: [id number] Name: NATASHA ARCE Rep #: [id number] : 2000 F 24 From: Hawk walsh MD PCP: Care Physician,No Primary Status: [facility] Study: Cholangiogram/ O R,Initial Date of Exam: 05/07 Exam# [id number] Ordering Dr: Landon Salazar [place] [id number] PROCEDURE: FLUOROSCOPIC GUIDED CHOLANGIOGRAM/PANCREAT OGRAPHY DATE OF EXAMINATION: May 07, 2024 INDICATION: Female, 24 years old. Abdominal pain and nausea. Gallstones PHYSICIAN: Landon Salazar MD FLUOROSCOPY TIME (if supplied): (20.8 seconds) RADIATION DOSAGE (If Supplied By Facility): CTDIvol = ( ) mGy, DLP = ( ) mGycm CONSENT: The risks, benefits and alternatives to the procedure were explained to the patient, and the patient agreed to the procedure and signed the consent. PROCEDURE/TECHNIQUE: (All elements of maximal sterile barrier technique followed, including US elements as applicable) The risks, benefits, and alternatives to the procedure were explained to patient, and the patient agreed to the procedure and signed a consent form for the procedure. Comparison study: Right upper quadrant ultrasound dated May 03, 2024 FINDINGS: Intraoperative surgical instrumentation seen in the stephany hepatis region and overlying the liver. Contrast outlines the common bile duct and the main right and left intrahepatic biliary ducts. Cholecystectomy clips are present. No filling defects are identified. There is no biliary ductal dilatation. There is free passage into the duodenum. No extraluminal leakage of contrast is seen outside of the biliary ducts or bowel. RAD/Cholangiogram/ O R,Initial IMPRESSION: 1. Status post cholangiogram Electronically Signed: Hawk Diamond MD at 8:17 EST Reading Location ID and State: [facility] / OR , Service support , CC: Dr. Landon Salazar MD; No Primary Care Physician Airplane Dispatch Clerk: Signed Normal [facility] Discharge Instructionon Discharge Instruction [facility] Medical Records Department [address] [place] [address] Instructions for Home/Discharge Instructions 05/07/24 1629 MR#: [id number] Acct: [id number] Name: NATASHA ARCE Rep #: [id number] : 2000 24 From: Landon Salazar MD PCP: Care Physician,No Primary Status:DEP [facility] Discharge Instructions Diet Discharge Diet: No restrictions Activity Discharge Activity: May Not Drive (No driving while using narcotic pain medication) and May Shower (Postoperative day 1) May shower in (days): 2 Ice area for (Minutes): 20 Lifting Restrictions: No lifting greater than 15 pounds for 2 weeks after surgery Dressing / Incision Call your doctor if your incision/area has: Continuous Slow Oozing, Increased Pain/ Swelling, Increased Redness, Foul Smelling Discharge and Swelling at the incision site Call your doctor if you observe: Fever of 101 or Higher Remove Dressing in: 2 days (Please leave Steri-Strips intact until they fall off spontaneously or are taken off at your follow-up visit) Cleanse incision/area with: Soap Water Follow Up Care Please Follow Up With: Landon Salazar MD When: 7-10days postop Test Results: Test results from this visit will be discussed in further detail at your follow-up appointment, if applicable. Discharge Plan Admission Primary Reason for Your Visit: Gallbladder surgery Attending Provider: Landon Salazar Primary Care Provider: Care Physician,No Primary Instructions Print Language: Cape Verdean Discharge Orders/Prescriptions Prescriptions: New oxycodone 5 mg tablet 5 mg PO Q6H PRN (Reason: pain) 5 Days Qty: 14 0RF nystatin 100,000 unit/gram powder 1 applic topical BID Qty: 15 0RF Continued ondansetron 4 mg tablet,disintegrating 4 mg PO Q8H PRN PRN (Reason: Nausea) Qty: 10 0RF Referrals / Follow Up: Care Physician,No Primary [Primary Care Provider] - Disposition Disposition (needs filled in before D/C Order can be placed): Home, Self Care 05/07/24 1828 Landon Salazar MD CC: No Primary Care Physician Signed [facility] MR/POSTOP.[facility] 05-07-2024 MR/POSTOP.[facility] Medical Records Department [address] [place] [address] Anesthesia Postop Eval I 05/07/24 1558 MR#: [id number] Acct: [id number] Name: NATASHA ARCE NICOLAS Rep #: [id number] : 2000 24 From: Saskia Perkins CRNA PCP: Care Physician,No Primary Status:[facility] Y Race: AA Location: [place] [address] Anesthesia: Postop Eval I Current Vital Signs Temperature: 97.8 F Pulse Rate: 102 Blood Pressure: 162/92 Respiratory Rate: 16 Pulse Ox: 99 Oxygen Delivery Method: Room Air Assessment Airway patent: Yes Spontaneous unlabored respirations: Yes Mental status: Awake and Calm nausea: No Vomiting: No Anesthesia Complication: No Fluid Hydration Crystalloid volume administer (ml): 1,400 Total IV fluid infused: 1,400 Progress Note Anesthesia document: Postop Eval 1 completed: Yes 05/07/24 1559 Date Saskia Perkins COSMETOLOGY TEACHER Cosigner Signature: Date CC: Signed [facility] Operative Reporton 4 Operative Report [facility] Medical Records Department [address] [place] [address] Operative Report 05/07/24 1529 MR#: [id number] Acct: [id number] Name: NATASHA ARCE Rep #: [id number] : 2000 24 From: Landon Salazar MD PCP: Care Physician,No Primary Status:[facility] Location: [facility] Operative Report (Standard) Operative Information Surgery/Procedure Performed: Laparoscopic cholecystectomy with intraoperative cholangiography Surgeon: Landon Salazar Date of Procedure: 05/07/24 Procedure Start Time: 14:00 Procedure Stop Time: 15:50 Pre-Operative Diagnosis: Biliary colic Post-Operative Diagnosis: Acute on chronic cholecystitis Select all DRAINS/GRAFTS/IMPLANTS that apply: None Type of Anesthesia: General/Supplemental Estimated Blood Loss: 15 Specimen collected: Yes Description of specimen(s) removed: Gallbladder Description of surgery: After proper identification in the preoperative holding area the patient was brought to the operating room where she was positioned supine on the operating room table. Preoperatively SCDs w ere placed and antibiotics were administered. General anesthesia was then induced. Patient's abdomen was prepped and draped in usual sterile fashion. A formal timeout was conducted to confirm both patient and the procedure. Procedure was begun with a supraumbilical incision which was extended deeply down to the level of the fascia. The fascia was elevated and incised, as well as the peritoneum. A finger sweep was performed to ensure there were no underlying adhesions and a 12 mm balloon trocar was inserted. Pneumoperitoneum was established at 15 mmHg. Three additional trocars (all 5 mm) were placed in the epigastrium and in the right upper quadrant. Inspection of the peritoneum revealed no inadvertent injury to the viscera below. The gallbladder was visualized with a mild amount of acute on chronic inflammation. The gallbladder fundus was then grasped and elevated cephalad. Then, using careful dissection the peritoneum was opened and the structures of the hepatocystic triangle were delineated. There was a branching artery (towards the cystic duct) from a posterior cystic artery that was inadvertently torn but then secured with a single titanium clip. Once the critical view of safety was obtained, the cystic duct was singly clipped and partially divided with a ductotomy. Using an Bahena Dae clamp, a cholangiocatheter was fed into the proximal segment of the cystic duct and clamped into place. Under fluoroscopy a cholangiogram was then obtained showing a standard length cystic duct flowing into a common bile duct with unobstructed antegrade flow of contrast into the duodenum. There was also retrograde flow through the common hepatic duct into the right and left hepatic ducts. Satisfied with this result, the cholangiocatheter was withdrawn and the proximal cystic duct was sealed with clips and the cystic duct was completely transected. The same process was used for the cystic artery. The gallbladder was then removed from the gallbladder fossa with the use of electrocautery. Selective electrocautery was used to obtain hemostasis in the gallbladder fossa. The gallbladder was placed in an Endo Catch bag and removed from the peritoneum. Morison's pouch was irrigated and the effluent was suctioned free of the peritoneum. Hemostasis was again confirmed. Under laparoscopic visualization the supraumbilical 12 mm port site was closed with a Bean Daugherty suture passer and 0 PDS suture in interrupted fashion with 2 sutures. Once again, hemostasis was confirmed in the gallbladder fossa and pneumoperitoneum was evacuated. A total of 30 mL of anesthetic was injected at the port sites for postoperative pain control. The skin of each port site was then closed in subcuticular fashion using 4-0 Monocryl. Steri-Strips and bandages were applied as dressings. Patient tolerated the procedure well without any apparent complications. On emergence from their anesthetic the patient was taken to PACU for ongoing recovery. Surgical Findings: ??? Evidence of mild acute on chronic cholecystitis ??? Cholangiogram showing free flow of contrast through the proximal bile ducts in antegrade fashion as well as backfilling of the intrahepatic ducts without evidence of filling defect or extravasation Chain Puller software test manager: Yes Lockstitch Coat Joiner: Tamara Hampton Tasks completed by surgical first assistant: Opening closing and Other (Operating laparoscopic camera) Additional surgical assistant?: Yes Additional Bindery Operator #2: Jazmyn Blood Tasks completed by surgical assistant #2: Opening closing and Other (Operating laparoscopic camera) Complications Complications: No Admit VTE Documentation VTE Mechan Device Prophylaxis: SCD's Procedures Digestive 40xxx-49xxx: 22928 Laparo cholecystectomy/graph 05/07/24 1828 Cosigner Signature (if applicable): (more content not included)... Normal [facility] ,Urineon 05-07-2024 Beta HCG ( test) Ql (U) Negative Normal [facility] Comment on above: Result Comment: Very dilute urine specimens, as indicated by a low specific gravity, may not contain chemical sales representative levels of hCG. If is still suspected, a first morning urine specimen should be collected 48 hours later and tested. Performed By: #### L 400.7600 #### [facility] [address] [place], [address] Surgery Specimen Level IIIon 05-07-2024 Surgery Specimen Level III ---- Patient Age/Sex Location Account Attending Physician ---- NATASHA ARCE [facility] [id number] Dr. Landon Salazar MD ---- Specimen: [id number] Received: 05/07/24 Status: KALEIGH Patterson Num: [id number] Spec Type: DELMY Dodson Dr: Dr. Landon Salazar MD HEADER OPERATION: Laparoscopic cholecystectomy with IOC PRE-OP DIAGNOSIS: Biliary colic TISSUE SUBMITTED: Gallbladder ---- MICROSCOPIC DIAGNOSIS Gallbladder, cholecystectomy: Chronic cholecystitis, cholelithiasis and focal cholesterolosis. SUSAN. 05/11/2024 MICROSCOPIC DESCRIPTION Slides are reviewed. GROSS DESCRIPTION Received is one container labeled with the patient's name and designated gallbladder. The specimen consists of a gallbladder measuring 10.5 cm in length and up to 3.0 cm in diameter. The external surface is pink-schmidt, smooth and glistening for the most part. Focally it is granular, hemorrhagic and contains cautery artifact. The gallbladder contains green-yellow mucoid bile and six mulberry brown stones measuring in aggregate 4.5 x 4.5 x 1.3 cm and 1.2 to 1.5 cm in greatest dimension. The mucosa is bile-stained and without any mass lesions. The mucosa also shows several yellowish streaks consistent with cholesterolosis. The gallbladder wall measures up to 0.3 cm in thickness. Senior Caregiver sections from the gallbladder and the cystic duct are submitted in one cassette. / SUSAN: 05/08/2024 TC:3 CPT: 96127 ---- Patient Age/Sex Location Account Attending Physician ---- NATASHA ARCE [facility] [id number] Dr. Landon Salazar MD ---- Signed (signature on file) Dr. Aaron Alston MD 05/11/24 1152 ---- Normal [facility] Comment on above: Performed By: #### P SUIII ####[facility] [address] [place], [place], [address] Surgery Visit Reporton 05-05 Surgery Visit Report [facility] [address] [place], [place] [address] OFFICE VISIT Date of Service: 05/05/24 MR#: [id number] Acct: [id number] Name: NATASHA ARCE Rep #: [id number] : 2000 Provider: Dr. Landon mulligan MD Age/Sex: Location: [facility] Status: Signed Intake Vital Signs 05/03/24 11:10 05/05/24 12:25 Height 5 ft 4 in 5 ft 4 in Weight: 228 lb BMI 39.1 BP 157/108 H Blood Pressure Location Rt brachial Position Sitting Respiration 18 Pulse 74 Pulse Source Monitor Temp 97.8 F Temp Source Temporal Pulse Oximetry (%) 98 Oxygen Delivery Method room air Intake Visit Reasons: DISCUSS GALLBLADDER U/S Chief Complaint: discuss gallbladder u/s Is patient in pain?: Yes (sharp ) Allergies Penicillins (PCN) Allergy (Verified 05/05/24 12:26) Laryngospasms Medications ???Medication ???Instructions ???Recorded ???Confirmed ???Type ondansetron 4 mg disintegrating 4 mg PO Q8H PRN PRN Nausea #10 tabs 04/26/24 05/05/24 Rx tablet PFSH Medical History (Updated 05/05/24 @ 16:[address] Landon Salazar MD) Gallstones Cholecystitis Alpha thalassemia trait G6PD deficiency Iron deficiency anemia due to chronic blood loss Ankle fracture, left Ovarian cyst Splenomegaly Anxiety Surgical History History of wisdom tooth extraction History of Family History Mother Diabetes Hypertension Grandmother Cancer possibly SCLC, mets to brain; maternal Social History Smoking Status: Never smoker alcohol intake: never substance use type: does not use HPI HPI HPI: Patient is a 24-year-old female who is known to me from 2 prior consultations related to concerns around her gallbladder. In fact, she was seen as recently as 05/01/2024 regarding this issue an outpatient ultrasound was arranged, however, she reports that she was overcome with a combination of abdominal pain, nausea, dizziness, and headaches so she decided to present to the emergency department on 05/03/2024. She describes her pain as coming in waves and characterizes it as sharp and shooting into her back (left). She notes that with this pain it seems to be spiking her blood pressure and she recalls taking her blood pressure at home finding her systolic number in excess of 210 mmHg. She states that since this presentation any eating leads to her becoming super nauseous. She states that she took seriously the recommendations to curb some of her dietary choices and has been restricted to baked chicken breast with fruits and vegetables since our consultation visit. She has been using Tylenol and ibuprofen to help with her pain complaints. Patient's ER workup is notable for CBC and CMP that failed to show leukocytosis or left shift as well as any abnormalities of her LFTs. Right upper quadrant ultrasound was obtained with radiology reading multiple gallstones are present there is gallbladder wall thickening measuring up to 5 mm. No discrete pericholecystic fluid. The presence or absence of a sonographic Jackson sign is not annotated. This followed with an impression stating findings perhaps indicative of acute cholecystitis. The presence or absence of a sonographic Jackson sign is not annotated. Correlate clinically. Consider hepatobiliary scan. Upon reevaluation in the emergency department patient's pain symptoms had improved and after discussion with on-call surgery outpatient follow-up was recommended. Below is recapitulated from patient's prior consultation visit for ease review: Patient is a 24-year-old female who is referred following a recent emergency room visit for a more???depth investigation of her gallbladder. She is known to me from a prior visit 03/06/23 which was occasioned by incidental CT finding of cholelithiasis after an ER visit on 03/01/2023. Given that patient's presentation complaint for that initial ER visit was for left upper quadrant discomfort our conversation primarily revolved around her finding of splenomegaly and its connection to her diagnosis of G6PD deficiency. A referral was made to oncology and patient states that she has followed with them but has confirmed that there is no indication for surgical splenectomy. During today's visit she shares that she was awoken out of sleep at approximately 5:00 in the morning due to the presence of right upper quadrant pain. She immediately noted that she was bloated on the right side. She experienced some nausea and headache but denies any experience of fevers or chills. She shares that this pain then radiated through her back to the left side. During this time she noted (more content not included)... Normal [facility] 12 Lead EKGon 05-03-2024 12 Lead EKG [facility] Cardiovascular Services [address] [place] [address] 12 Lead EKG 05/03/24 1142 MR#: [id number] Acct: [id number] Name: NATASHA ARCE Rep #: [id number] : 2000 24 From: Landon Bernard MD Attending Dr: Status: DEP ER Ordering Dr: Mark Lutz MD Date: 05/03/24 Location: ED Sex: F AA Admitted: Test Reason : gen illness Blood Pressure : */* mmHG Vent. Rate : 60 BPM Atrial Rate : 60 BPM P-R Int : 176 ms QRS Dur : 90 ms QT Int : 402 ms P-R-T Axes : 50 31 39 degrees QTcB Int : 402 ms Normal sinus rhythm with sinus arrhythmia Normal ECG Confirmed by Landon Bernard ([id number]), manuscript editor SARAH VINCENT ([id number]) on 05/04/2024 9:21:10 AM Referred By: Confirmed By: Landon Bernard 05/04/24920 Date Landon Bernard MD CC: Dr. Mark Lutz MD; No Primary Care Physician Signed Normal [facility] CBC W/Diff, Automatedon 11-0 Absolute Lymph 1.94 X10 3/uL Normal 0.83-4.51 [facility] Comment on above: Performed By: #### L 500.4050, L700.6800, L100.0100, L501.2450 ####[facility] [address] [place], [address] Absolute Neut 3.1 X10 3/uL Normal 2.0-7.7 [facility] Comment on above: Performed By: #### L 500.4050, L700.6800, L100.0100, L501.2450 ####[facility] [address] [place], [address] Basophils/100 WBC (Bld) 0.7 % Normal 0-1 [facility] Comment on above: Performed By: #### L 500.4050, L700.6800, L100.0100, L501.2450 ####[facility] [address] [place], [address] Eosinophils/100 WBC (Bld) 3.2 % Normal 0-5 [facility] Comment on above: Performed By: #### L 500.4050, L700.6800, L100.0100, L501.2450 ####[facility] [address] [place], [address] Erythrocyte distribution width (RBC) [Ratio] 14.3 % Normal 11.6-14.6 [facility] Comment on above: Performed By: #### L 500.4050, L700.6800, L100.0100, L501.2450 ####[facility] [facility] [address] [place], [address] Hematocrit (Bld) [Volume fraction] 43.8 % Normal 37-47 [facility] Comment on above: Performed By: #### L 500.4050, L700.6800, L100.0100, L501.2450 ####[facility] [address] [place], [address] Hemoglobin (Bld) [Mass/Vol] 13.5 g/dL Normal 12.0-15.0 [facility] Comment on above: Performed By: #### L 500.4050, L700.6800, L100.0100, L501.2450 ####[facility] [address] [place], [address] IG% 0.400 Normal 0.0-0.9 [facility] Comment on above: Result Comment: IG% - Immature Granulocytes (promyelocytes, myelocytes and metamyelocytes) > 1% indicates that a LEFT SHIFT is Present. Performed By: #### L 500.4050, L700.6800, L100.0100, L501.2450 ####[facility] [address] [place], [address] Lymphocytes/100 WBC (Bld) 34.2 % Normal 19-41 [facility] Comment on above: Performed By: #### L 500.4050, L700.6800, L100.0100, L501.2450 ####[facility] [address] [place], [address] MCH (RBC) [Entitic mass] 23.5 pg Low 27.0-32.0 [facility] Comment on above: Performed By: #### L 500.4050, L700.6800, L100.0100, L501.2450 ####[facility] [address] [place], [address] MCHC (RBC) [Mass/Vol] 30.8 g/dL Low 32-36 [facility] Comment on above: Performed By: #### L 500.4050, L700.6800, L100.0100, L501.2450 ####[facility] [address] [place], [address] MCV (RBC) [Entitic vol] 76.3 fL Low 81-99 [facility] Comment on above: Performed By: #### L 500.4050, L700.6800, L100.0100, L501.2450 ####[facility] [address] [place], [address] Monocytes/100 WBC (Bld) 6.9 % Normal 0-10 [facility] Comment on above: Performed By: #### L 500.4050, L700.6800, L100.0100, L501.2450 ####[facility] [address] [place], [address] Neutrophils/100 WBC (Bld) 54.6 % Normal 47-70 [facility] Comment on above: Performed By: #### L 500.4050, L700.6800, L100.0100, L501.2450 ####[facility] [address] [place], [address] Nucleated RBC (Bld) [#/Vol] 0 10*3/uL Normal 0-5 [facility] Comment on above: Performed By: #### L 500.4050, L700.6800, L100.0100, L501.2450 ####[facility] [address] [place], [address] Platelet mean volume (Bld) [Entitic vol] 12.9 fL High 6.2-12.0 [facility] Comment on above: Performed By: #### L 500.4050, L700.6800, L100.0100, L501.2450 ####[facility] [address] [place], [address] Platelets (Bld) [#/Vol] 233 10*3/uL Normal 150-450 [facility] Comment on above: Performed By: #### L 500.4050, L700.6800, L100.0100, L501.2450 ####[facility] [address] [place], [address] RBC (Bld) [#/Vol] 5.74 10*6/uL High 4.2-5.4 [facility] Comment on above: Performed By: #### L 500.4050, L700.6800, L100.0100, L501.2450 ####[facility] [address] [place], [address] RDW SD 38.8 fl Normal 35.1-43.9 [facility] Comment on above: Performed By: #### L 500.4050, L700.6800, L100.0100, L501.2450 ####[facility] [address] [place], [address] WBC (Bld) [#/Vol] 5.7 10*3/uL Normal 4.4-11.0 [facility] Comment on above: Performed By: #### L 500.4050, L700.6800, L100.0100, L501.2450 ####[facility] [address] [place], [place], [id number] Chest PA and Lateralon 05-03 Chest PA and Lateral [facility] Imaging Services [address] [place], [place] [address] Chest PA and Lateral MR#: [id number] Acct: [id number] Name: NATASHA ARCE Rep #: [id number] : 2000 F 24 From: Kj lee DO PCP: Care Physician,No Primary Status: REG ER Study: Chest PA and Lateral Date of Exam: 05/03/24 Exam# [id number] Ordering Dr: Mark Lutz [place] [id number] EXAM: XR CHEST, 2 VIEWS CLINICAL INDICATION: dyspnea TECHNIQUE: Frontal and lateral views of the chest. COMPARISON: No relevant prior studies available. FINDINGS: LUNGS AND PLEURAL SPACES: No significant abnormality. No consolidation or edema. No pneumothorax. No effusion. HEART: No significant abnormality. Cardiac silhouette not enlarged. MEDIASTINUM: Central airways and mediastinal contour are unremarkable. BONES/JOINTS: No significant abnormality. No acute fracture. SOFT TISSUES: No significant abnormality. RAD/Chest PA and Lateral IMPRESSION: No radiographic evidence of acute cardiopulmonary disease. Electronically Signed: Kj Bryant DO at 12:16 EST , CC: Dr. Mark Lutz MD; No Primary Care Physician Airplane Dispatch Clerk: Signed Normal [facility] Comprehensive Metabolic Prof ilon 05-03-2024 Albumin [Mass/Vol] 3.7 g/dL Normal 3.2-5.0 [facility] Comment on above: Performed By: #### L 500.4050, L700.6800, L100.0100, L501.2450 ####[facility] [address] [place], [place], [address] Albumin/Globulin [Mass ratio] 1.1 {ratio} Normal 0.9-2.4 [facility] Comment on above: Performed By: #### L 500.4050, L700.6800, L100.0100, L501.2450 ####[facility] [address] [place], [address] ALK P 77 U/L Normal 45-117 [facility] Comment on above: Performed By: #### L 500.4050, L700.6800, L100.0100, L501.2450 ####[facility] [address] [place], [address] ALT [Catalytic activity/Vol] 29 U/L Normal 13-56 [facility] Comment on above: Performed By: #### L 500.4050, L700.6800, L100.0100, L501.2450 ####[facility] [address] [place], [address] AST [Catalytic activity/Vol] 14 U/L Low 15-37 [facility] Comment on above: Performed By: #### L 500.4050, L700.6800, L100.0100, L501.2450 ####[facility] [address] [place], [address] Bilirubin [Mass/Vol] 0.60 mg/dL Normal 0.20-1.00 [facility] Comment on above: Result Comment: For patients on eltrombopag therapy, use of Dimension [place] TBIL is not recommended. Performed By: #### L 500.4050, L700.6800, L100.0100, L501.2450 ####[facility] [address] [place], [address] BUN/CRE 13.7 RATIO Normal 10-20 [facility] Comment on above: Performed By: #### L 500.4050, L700.6800, L100.0100, L501.2450 ####[facility] [address] [place], [address] CA,Total 9.0 mg/dL Normal 8.5-10.1 [facility] Comment on above: Performed By: #### L 500.4050, L700.6800, L100.0100, L501.2450 ####[facility] [address] [place], [address] Chloride [Moles/Vol] 107 mmol/L Normal 98-107 [facility] Comment on above: Performed By: #### L 500.4050, L700.6800, L100.0100, L501.2450 ####[facility] [address] [place], [address] CO2 [Moles/Vol] 28.0 mmol/L Normal 21.0-32.0 [facility] Comment on above: Performed By: #### L 500.4050, L700.6800, L100.0100, L501.2450 ####[facility] [address] [place], [address] Creatinine [Mass/Vol] 0.58 mg/dL Normal 0.55-1.02 [facility] Comment on above: Result Comment: The validity of the calculated GFR GFRAA in patients over 70 years has not been determined. Clinical correlation is essential. Performed By: #### L 500.4050, L700.6800, L100.0100, L501.2450 ####[facility] [address] [place], [address] ECRCL 174.09 ml/min Normal [facility] Comment on above: Performed By: #### L 500.4050, L700.6800, L100.0100, L501.2450 ####[facility] [address] [place], [address] EST GFR - AA 163 mL/min Normal >60 [facility] Comment on above: Result Comment: Afri can [place] Islander GFR Calc Performed By: #### L 500.4050, L700.6800, L100.0100, L501.2450 ####[facility] [address] [place], [address] GAP 5 Normal 5-15 [facility] Comment on above: Performed By: #### L 500.4050, L700.6800, L100.0100, L501.2450 ####[facility] [address] [place], [address] GFR/1.73 sq M.predicted among non-blacks MDRD (S/P/Bld) [Vol rate/Area] 135 mL/min/{1.73_m2} Normal >60 [facility] Comment on above: Result Comment: Non- GFR Calc Performed By: #### L 500.4050, L700.6800, L100.0100, L501.2450 ####[facility] [address] [place], [address] Globulin (S) [Mass/Vol] 3.5 g/dL Normal 2.2-4.2 [facility] Comment on above: Performed By: #### L 500.4050, L700.6800, L100.0100, L501.2450 ####[facility] [address] [place], [address] Glucose [Mass/Vol] 91 mg/dL Normal 74-106 [facility] Comment on above: Performed By: #### L 500.4050, L700.6800, L100.0100, L501.2450 ####[facility] [address] [place], [address] Potassium [Moles/Vol] 3.9 mmol/L Normal 3.5-5.1 [facility] Comment on above: Performed By: #### L 500.4050, L700.6800, L100.0100, L501.2450 ####[facility] [address] [place], [address] Sodium [Moles/Vol] 140 mmol/L Normal 136-145 [facility] Comment on above: Performed By: #### L 500.4050, L700.6800, L100.0100, L501.2450 ####[facility] [address] [place], [address] T PROT 7.2 g/dL Normal 6.4-8.2 [facility] Comment on above: Performed By: #### L 500.4050, L700.6800, L100.0100, L501.2450 ####[facility] [address] [place], [address] Urea nitrogen [Mass/Vol] 8 mg/dL Normal 7-18 [facility] Comment on above: Performed By: #### L 500.4050, L700.6800, L100.0100, L501.2450 ####[facility] [address] [place], [address] Emergency Department Summary on 05-03-2024 Emergency Department Summary [facility] Medical Records Department [address] [place] [address] Emergency Department Summary 05/03/24 MR#: [id number] Acct: [id number] Name: NATASHA ARCE Rep #: [id number] : 2000 24 From: Mark Lutz MD PCP: Care Physician,No Primary Status:REG ER Location: ED HPI History of Present Illness Chief Complaint: General Illness Informant: patient Onset/Context/Timing Onset: Days Context: Gradual Onset Timing: Intermittent Current Severity: Mild Maximum Severity: Mild Narrative Narrative: 24-year-old female known history of gallstones, G6PD deficiency and sickle cell. Dates she has not felt well for the last several days. When she eats she gets nauseated. At times she has right upper quadrant abdominal pain. And today she felt mildly short of breath. Denies fever or chills. No chest pain. No hemoptysis. No leg pain or swelling. No history of DVT or PE risk factors. Only prior abdominal surgery was for . She has had some nausea and diarrhea. Prior similar symptoms: Yes Recent Illness/Hospitalizatio n: No PFSH PFSH Medical History Alpha thalassemia trait G6PD deficiency Iron deficiency anemia due to chronic blood loss Ankle fracture, left Ovarian cyst Splenomegaly Anxiety Home Medications ???Medication ???Instructions ???Recorded ???Last Taken ???Type ondansetron 4 mg disintegrating 4 mg PO Q8H PRN PRN Nausea #10 tabs 04/26/24 Unknown Rx tablet Allergy/AdvReac Type Severity Reaction Status Date / Time Penicillins (PCN) Allergy Laryngospas Verified 05/03/24 11:12 ms Family History Mother Diabetes Hypertension Grandmother Cancer possibly SCLC, mets to brain; maternal Surgical History History of wisdom tooth extraction History of Social History Smoking Status: Never smoker alcohol intake: never substance use type: does not use ROS ROS ED ROS Narrative Nausea, diarrhea and intermittent abdominal pain. Constitutional Constitutional ED: Denies chills or fever(s) Eyes Eyes: Denies blurry vision ENT ENT ED: Denies ear pain Cardiovascular Cardiovascular: Denies chest pain Respiratory/Chest Respiratory/Chest: Reports dyspnea Gastrointestinal Gastrointestinal: Reports abdominal pain, diarrhea and nausea; Denies constipation, melena or vomiting Genitourinary Genitourinary ED: Denies dysuria or hematuria Musculoskeletal Musculoskeletal: Denies arthralgias Integumentary Denies abscess Neurologic Neurologic: Denies headache(s) Psychiatric Psychiatric: Denies anxiety or depression Endocrine Endocrinology: Denies cold intolerance Hematologic/Lymphatic Hematologic/Lymphatic: Reports none Allergic/Immunologic Allergic/Immunologic ED: Reports mouth swelling; Denies tongue swelling or urticaria EXAM Physical Exam Narrative Exam Narrative: 24-year-old female vital signs stable afebrile. Blood pressure elevated 161/120. Pulse ox 100% on room air no hypoxia. H EENT exam unremarkable. Must remember. Neck nontender lymphadenopathy. Lungs clear to auscultation bilaterally. Heart regular rate and rhythm rate about 80 no murmur. Chest wall and ribs nontender. Abdomen soft nondistended normal bowel sounds no peritoneal signs. Mild right upper quadrant tenderness. No Jackson sign. Back nontender. Neurologically patient is awake and alert. No focal motor deficits. Awake alert. Moving all 4 extremities. Const Vital Signs: 05/03/24 11:10 05/03/24 11:48 05/03/24 13:10 Temperature 98.7 F Temperature Source Oral Pulse Rate 84 87 Respiratory Rate 18 18 Respiratory Effort Normal Respiratory Pattern Normal Blood Pressure 161/120 H 153/89 H Blood Pressure Mean 133 110 Pulse Ox 100 98 Oxygen Delivery Method Room Air Room Air Positive well nourished and well developed; Negative for cachectic, contractures or unkempt General Appearance ED: well developed and NAD; Negative for unkempt, cachectic, contractures, cyanotic, diaphoretic or pallor Nutritional Appearance: Negative for cachectic HEENT Reports moist mucous membranes; Denies dry mucous membranes Negative for trauma or tenderness Mouth ED: No dry mucous membranes Mouth: No dry mucous membranes Eyes PERRL and EOMs intact bilaterally General Eye ED: Negative for pale conjunctiva Neck no lymphadenopathy, supple and no JVD General: Negative for tenderness Lymph Lymphatic: Negative for other Chest Wall inspection of chest normal and palpation of chest normal Resp normal respiratory effort and clear to auscultation bilaterally Effort and Inspection: Negativ (more content not included)... Normal [facility] Gallbladderon 05-03-2024 Gallbladder [facility] Imaging Services [address] [place] [address] Gallbladder MR#: [id number] Acct: [id number] Name: NATASHA ARCE Rep #: [id number] : 2000 F 24 From: Kj lee DO PCP: Care Physician,No Primary Status: REG ER Study: Gallbladder Date of Exam: 05/03/24 Exam# [id number] Ordering Dr: Mark Lutz MD [id number] EXAM: US ABDOMEN LIMITED, RIGHT UPPER QUADRANT CLINICAL INDICATION: ABDOMEN PAIN, NAUSEA TECHNIQUE: Real-time ultrasound of the right upper quadrant with image documentation. COMPARISON: CT abdomen and pelvis, 04/26/2024 FINDINGS: LIVER: No significant abnormality. There is normal echotexture. No focal hepatic lesion. No intrahepatic biliary ductal dilation. GALLBLADDER: Multiple gallstones are present. There is gallbladder wall thickening measuring up to 5 mm. No discrete pericholecystic fluid. The presence or absence of a sonographic Jackson sign is not annotated. COMMON BILE DUCT: Normal as visualized. The proximal common bile duct is within normal limits for the patient''s age. PANCREAS: The pancreas is partially obscured due to bowel gas and appears otherwise normal. RIGHT KIDNEY: No significant abnormality. There is no hydronephrosis. No shadowing calculus. No focal lesion or perinephric collection is demonstrated. US/Gallbladder IMPRESSION: Findings perhaps indicative of acute cholecystitis. The presence or absence of a sonographic Jackson sign is not annotated. Correlate clinically. Consider hepatobiliary scan. Electronically Signed: Kj Bryant DO at 13:38 EST , CC: Dr. Mark Lutz MD; No Primary Care Physician Airplane Dispatch Clerk: Signed Normal [facility] Lipaseon 05-03-2024 Lipase [Catalytic activity/Vol] 21 U/L Normal 13-75 [facility] Comment on above: Result Comment: Plea se note: LIPASE revised reference range effective 22. New Lipase methodology. Expected to produce lower values than the previous assay method. NEW Reference Range: 13 - 75 U/L Performed By: #### L 500.4050, L700.6800, L100.0100, L501.2450 ####[facility] [address] [place], [place], [id number] ,Serum,hCG Quali.on 05-03-2024 HCG, SERUM QUAL Negative Normal [facility] Comment on above: Performed By: #### L 500.4050, L700.6800, L100.0100, L501.2450 ####[facility] [address] [place], [address] Surgery Visit Reporton 04-28 Surgery Visit Report [facility] [address] [place] [address] OFFICE VISIT Date of Service: 04/30/24 MR#: [id number] Acct: [id number] Name: NATASHA ARCE Rep #: [id number] : 2000 Provider: Dr. Landon mulligan MD Age/Sex: 24/F Location: [facility] Status: Signed Intake Vital Signs 04/26/24 14:07 04/30/24 12:23 Height 5 ft 4 in 5 ft 4.5 in Weight: 230 lb BMI 38.8 BP 140/86 H Blood Pressure Location Rt brachial Position Sitting Respiration 16 Intake Visit Reasons: ED F/U - GALLBLADDER Chief Complaint: gallbladder Insurance Business Analyst Required: No Is patient in pain?: No Allergies Penicillins (PCN) Allergy (Verified 04/30/24 12:25) Laryngospasms Medications ???Medication ???Instructions ???Recorded ???Confirmed ???Type ondansetron 4 mg disintegrating 4 mg PO Q8H PRN PRN Nausea #10 tabs 04/26/24 04/30/24 Rx tablet Have you fallen in the past year?: No PFSH Medical History Alpha thalassemia trait G6PD deficiency Iron deficiency anemia due to chronic blood loss Ankle fracture, left Ovarian cyst Splenomegaly Anxiety Surgical History History of wisdom tooth extraction History of Family History Mother Diabetes Hypertension Grandmother Cancer possibly SCLC, mets to brain; maternal Social History Smoking Status: Never smoker alcohol intake: never substance use type: does not use HPI HPI HPI: Patient is a 24-year-old female who is referred following a recent emergency room visit for a more???depth investigation of her gallbladder. She is known to me from a prior visit 03/06/23 which was occasioned by incidental CT finding of cholelithiasis after an ER visit on 03/01/2023. Given that patient's presentation complaint for that initial ER visit was for left upper quadrant discomfort our conversation primarily revolved around her finding of splenomegaly and its connection to her diagnosis of G6PD deficiency. A referral was made to oncology and patient states that she has followed with them but has confirmed that there is no indication for surgical splenectomy. During today's visit she shares that she was awoken out of sleep at approximately 5:00 in the morning due to the presence of right upper quadrant pain. She immediately noted that she was bloated on the right side. She experienced some nausea and headache but denies any experience of fevers or chills. She shares that this pain then radiated through her back to the left side. During this time she noted some constipation and some shortness of breath as well. After taking ibtp-xih-keojtjg ibuprofen and Tylenol that did not cut the pain she decided to present to the emergency department. There her workup was remarkable for normal WBC, normal LFTs, but CT imaging showed some evidence of pericholecystic fluid about the gallbladder. I was contacted at this time by emergency medicine as patient had experienced a spontaneous resolution of her symptoms and they wanted to confirm that I felt outpatient workup was appropriate. When asked to recall her experience any more detailed fashion, Mrs. Arce shares that her last known meal prior to her experience of symptoms was beef stew. She admits that she intentionally stays away from some beef and pork products because of a track record with upsetting her stomach. She also comments that after she returned from the ER her father made her some Salsberry steak and she did not find this upsetting or reproducing her abdominal symptoms. Further, she goes on to describe that she tolerated Johnston's yesterday with no pain. She denies any sick contacts or further experience of symptoms since her ER visit. Miss Arce comments later in the visit that her finding of cholelithiasis actually predated our consultation visit in March 2023 when she was told in the peripartum window from the delivery of her child that she had evidence of cholelithiasis in 2021. ROS General General: Yes weight change; No appetite, fatigue, colon cancer, breast cancer or weakness HEENT HEENT: No difficulty swallowing, eye injury, eye surgery, swollen glands or hoarseness Endo Endocrine: No thyroid disease, diabetes mellitus, thyroid cancer, Hair loss, heat intolerance or cold intolerance Skin Skin: No rash or changing moles Musc Musculoskeletal: No back problems, arthritis, rheumatoid arthritis, gout or joint pain Cardio Cardiovascular: Yes high blood pressure; No murmur, pacemaker, heart disease, atrial fibrillation, heart attack, heart stent, palpitations, shortness of breat with exertion or chest pain Psych Ps (more content not included)... Normal [facility] Urine Cultureon 04-28-2024 URC Below infection leve l. Mixed Gram Positive Organisms [place] Count 1000-10,000 MIXC Mixed contaminants. Submit a new specimen if indicated. Normal [facility] Comment on above: Performed By: #### M 100.2200 #### [facility] [address] [facility] [place], [place], [address] Abdomen/Pelvis W IV Cont ONL Yon 04-26-2024 Abdomen/Pelvis W IV Cont ONLY [facility] Imaging Services [address] [place] [address] Abdomen/Pelvis W IV Cont ONLY MR#: [id number] Acct: [id number] Name: NATASHA ARCE Rep #: [id number] : 2000 F 24 From: Eros Robert PCP: Care Physician,No Primary Status: REG ER Study: Abdomen/Pelvis W IV Cont ONLY Date of Exam: Exam# [id number] Ordering Dr: Errol Hamm DO [id number] STUDY: CT ABDOMEN AND PELVIS WITH CONTRAST REASON FOR EXAM: Female, 24 years old. Abdominal pain-RUQ RADIATION DOSAGE (If Supplied By Facility): CTDIvol = ( 17.07 ) mGy, DLP = ( 1342.35 ) mGycm TECHNIQUE: IV 100mL Isovue-370 was administered. Transaxial images were obtained from the dome of the diaphragm to the symphysis pubis. Multiplanar coronal and sagittal images were reformatted. The protocol utilizes one or more of the following dose reduction techniques: automated exposure control, adjustment of mA and/or kV according to patient size,and/or use of iterative reconstruction technique. COMPARISON: Prior study dated: 03/01/2023 FINDINGS: The visualized lung bases are unremarkable. The visualized portions of the heart are within normal limits. Normal liver. Gallstones are seen with probable mild pericholecystic fluid.. Splenomegaly. The spleen measures about 16 cm in length. Normal pancreas. Normal bilateral adrenal glands. Normal visualized stomach. Normal in caliber small bowel loops. Fecal retention. No evidence of acute diverticulitis. The appendix is questionably visualized. Persistent. No inflammatory changes are seen. Normal abdominal aorta. Few small mesenteric nodes. No evidence of adenopathy. Normal right kidney. Normal left kidney. Normal urinary bladder. No pelvic mass. Normal abdominal wall. Normal osseous structures. CT/Abdomen/Pelvis W IV Cont ONLY IMPRESSION: 1. Cholelithiasis with questionable mild pericholecystic fluid. Correlation with gallbladder ultrasound is recommended. 2. Splenomegaly. 3. Otherwise no focal acute inflammatory process. Electronically Signed: Eros Tapia MD at 15:56 EDT , CC: Dr. Errol Hamm, DO; No Primary Care Physician Airplane Dispatch Clerk: Signed Normal [facility] CBC W/Diff, Automatedon 10-2 Absolute Lymph 2.18 X10 3/uL Normal 0.83-4.51 [facility] Comment on above: Performed By: #### M 100.2200 #### [facility] [address] [place], [address] Absolute Neut 2.3 X10 3/uL Normal 2.0-7.7 [facility] Comment on above: Performed By: #### M 100.2200 #### [facility] [address] [place], [address] Basophils/100 WBC (Bld) 0.8 % Normal 0-1 [facility] Comment on above: Performed By: #### M 100.2200 #### [facility] [address] [place], [address] Eosinophils/100 WBC (Bld) 3.7 % Normal 0-5 [facility] Comment on above: Performed By: #### M 100.2200 #### [facility] [address] [place], [address] Erythrocyte distribution width (RBC) [Ratio] 14.0 % Normal 11.6-14.6 [facility] Comment on above: Performed By: #### M 100.2200 #### [facility] [address] [place], [address] Hematocrit (Bld) [Volume fraction] 42.5 % Normal 37-47 [facility] Comment on above: Performed By: #### M 100.2200 #### [facility] [address] [place], [address] Hemoglobin (Bld) [Mass/Vol] 13.0 g/dL Normal 12.0-15.0 [facility] Comment on above: Performed By: #### M 100.2200 #### [facility] [address] [place], [address] IG% 0.200 Normal 0.0-0.9 [facility] Comment on above: Result Comment: IG% - Immature Granulocytes (promyelocytes, myelocytes and metamyelocytes) > 1% indicates that a LEFT SHIFT is Present. Performed By: #### M 100.2200 #### [facility] [address] [place], [address] Lymphocytes/100 WBC (Bld) 41.9 % High 19-41 [facility] Comment on above: Performed By: #### M 100.2200 #### [facility] [address] [place], [address] MCH (RBC) [Entitic mass] 23.5 pg Low 27.0-32.0 [facility] Comment on above: Performed By: #### M 100.2200 #### [facility] [address] [place], [address] MCHC (RBC) [Mass/Vol] 30.6 g/dL Low 32-36 [facility] Comment on above: Performed By: #### M 100.2200 #### [facility] [address] [place], [address] MCV (RBC) [Entitic vol] 76.9 fL Low 81-99 [facility] Comment on above: Performed By: #### M 100.2200 #### [facility] [address] [place], [address] Monocytes/100 WBC (Bld) 8.5 % Normal 0-10 [facility] Comment on above: Performed By: #### M 100.2200 #### [facility] [address] [place], [address] Neutrophils/100 WBC (Bld) 44.9 % Low 47-70 [facility] Comment on above: Performed By: #### M 100.2200 #### [facility] [address] [place], [address] Nucleated RBC (Bld) [#/Vol] 0 10*3/uL Normal 0-5 [facility] Comment on above: Performed By: #### M 100.2200 #### [facility] [address] [place], [address] Platelet mean volume (Bld) [Entitic vol] 12.9 fL High 6.2-12.0 [facility] Comment on above: Performed By: #### M 100.2200 #### [facility] [address] [place], [address] Platelets (Bld) [#/Vol] 250 10*3/uL Normal 150-450 [facility] Comment on above: Performed By: #### M 100.2200 #### [facility] [address] [place], [address] RBC (Bld) [#/Vol] 5.53 10*6/uL High 4.2-5.4 [facility] Comment on above: Performed By: #### M 100.2200 #### [facility] [address] [place], [address] RDW SD 39.0 fl Normal 35.1-43.9 [facility] Comment on above: Performed By: #### M 100.2200 #### [facility] [address] [place], [address] WBC (Bld) [#/Vol] 5.2 10*3/uL Normal 4.4-11.0 [facility] Comment on above: Performed By: #### M 100.2200 #### [facility] [address] [place], [address] Comprehensive Metabolic Prof [facility] 04-26-2024 Albumin [Mass/Vol] 3.5 g/dL Normal 3.2-5.0 [facility] Comment on above: Performed By: #### M 100.2200 #### [facility] [address] [place], [address] Albumin/Globulin [Mass ratio] 1.0 {ratio} Normal 0.9-2.4 [facility] Comment on above: Performed By: #### M 100.2200 #### [facility] [address] [place], [address] ALK P 73 U/L Normal 45-117 [facility] Comment on above: Performed By: #### M 100.2200 #### [facility] [address] [place], [address] ALT [Catalytic activity/Vol] 49 U/L Normal 13-56 [facility] Comment on above: Performed By: #### M 100.2200 #### [facility] [address] [place], [address] AST [Catalytic activity/Vol] 20 U/L Normal 15-37 [facility] Comment on above: Performed By: #### M 100.2200 #### [facility] [address] [place], [address] Bilirubin [Mass/Vol] 0.60 mg/dL Normal 0.20-1.00 [facility] Comment on above: Result Comment: For patients on eltrombopag therapy, use of Dimension [place] TBIL is not recommended. Performed By: #### M 100.2200 #### [facility] [address] [place], [address] BUN/CRE 15.2 RATIO Normal 10-20 [facility] Comment on above: Performed By: #### M 100.2200 #### [facility] [address] [place], [address] CA,Total 8.8 mg/dL Normal 8.5-10.1 [facility] Comment on above: Performed By: #### M 100.2200 #### [facility] [address] [place], [address] Chloride [Moles/Vol] 108 mmol/L High 98-107 [facility] Comment on above: Performed By: #### M 100.2200 #### [facility] [address] [place], [address] CO2 [Moles/Vol] 28.0 mmol/L Normal 21.0-32.0 [facility] Comment on above: Performed By: #### M 100.2200 #### [facility] [address] [place], [address] Creatinine [Mass/Vol] 0.59 mg/dL Normal 0.55-1.02 [facility] Comment on above: Result Comment: The validity of the calculated GFR GFRAA in patients over 70 years has not been determined. Clinical correlation is essential. Performed By: #### M 100.2200 #### [facility] [address] [place], [address] ECRCL 171.35 ml/min Normal [facility] Comment on above: Performed By: #### M 100.2200 #### [facility] [address] [place], [address] EST GFR - AA 160 mL/min Normal >60 [facility] Comment on above: Result Comment: Afri can [place] GFR Calc Performed By: #### M 100.2200 #### [facility] [address] [place], [address] GAP 3 Low 5-15 [facility] Comment on above: Performed By: #### M 100.2200 #### [facility] [address] [place], [address] GFR/1.73 sq M.predicted among non-blacks MDRD (S/P/Bld) [Vol rate/Area] 132 mL/min/{1.73_m2} Normal >60 [facility] Comment on above: Result Comment: Non- GFR Calc Performed By: #### M 100.2200 #### [facility] [address] [place], [address] Globulin (S) [Mass/Vol] 3.6 g/dL Normal 2.2-4.2 [facility] Comment on above: Performed By: #### M 100.2200 #### [facility] [address] [place], [address] Glucose [Mass/Vol] 87 mg/dL Normal 74-106 [facility] Comment on above: Performed By: #### M 100.2200 #### [facility] [address] [place], [address] Potassium [Moles/Vol] 3.7 mmol/L Normal 3.5-5.1 [facility] Comment on above: Performed By: #### M 100.2200 #### [facility] [address] [place], [address] Sodium [Moles/Vol] 140 mmol/L Normal 136-145 [facility] Comment on above: Performed By: #### M 100.2200 #### [facility] [address] [place], [address] T PROT 7.1 g/dL Normal 6.4-8.2 [facility] Comment on above: Performed By: #### M 100.2200 #### [facility] [address] [place], [address] Urea nitrogen [Mass/Vol] 9 mg/dL Normal 7-18 [facility] Comment on above: Performed By: #### M 100.2200 #### [facility] [address] [place], [address] Emergency Department Summary on 04-26-2024 Emergency Department Summary [facility] Medical Records Department [address] [place] [address] Emergency Department Summary 04/26/24 MR#: [id number] Acct: [id number] Name: NATASHA ARCE NICOLAS Rep #: [id number] : 2000 24 From: Errol Hamm DO PCP: Care Physician,No Primary Status:DEP ER Location: ED HPI HPI - GI History of Present Illness Chief Complaint: Abd Pain Informant: patient Abdominal Pain/Flank Pain Onset: Today Context: Gradual Onset Timing: Continuous Quality: Aching and Sharp Location: RUQ and RLQ Worsened by: - (Ambulation) Relieved by: - (Tylenol, ibuprofen) Nausea/Vomiting/Emesis GI Symptom: Positive for Nausea; Negative for Vomiting Diarrhea/Melena/Hemato chezia GI Symptom: Negative for Diarrhea, Melena or Hematochezia Associated Symptoms Associated Symptoms: Negative for Dysuria, Frequency or Hematuria LMP: 1 week ago Narrative Narrative: Patient presents with abdominal pain that began today. Patient states she woke up and noted some pain over the right side of her abdomen. Patient describes it as sharp and aching. Patient states that has been constant throughout the day. Patient states it is worse with walking. Patient states she took some Tylenol and ibuprofen which seemed to help. Patient admits to some nausea but denies any vomiting. Patient admits to some constipation. Patient denies any melena or hematochezia. Patient denies any dysuria, frequency, or hematuria. Patient states her last menstrual period was approximately 1 week ago. Patient denies any fevers or chills. PFSH PFSH Medical History Alpha thalassemia trait G6PD deficiency Iron deficiency anemia due to chronic blood loss Ankle fracture, left Ovarian cyst Splenomegaly Anxiety Home Medications ???Medication ???Instructions ???Recorded ???Last Taken ???Type ondansetron 4 mg disintegrating 4 mg PO Q8H PRN PRN Nausea #10 tabs 04/26/24 Unknown Rx tablet Allergy/AdvReac Type Severity Reaction Status Date / Time Penicillins (PCN) Allergy Laryngospas Verified 04/26/24 14:07 ms Family History Mother Diabetes Hypertension Grandmother Cancer possibly SCLC, mets to brain; maternal Surgical History History of wisdom tooth extraction History of Social History Smoking Status: Never smoker alcohol intake: never substance use type: does not use ROS ROS ED Constitutional Constitutional ED: Denies chills or fever(s) Eyes Eyes: Denies blurry vision or change in vision ENT ENT ED: Denies rhinorrhea or sore throat Cardiovascular Cardiovascular: Denies chest pain or palpitations Respiratory/Chest Respiratory/Chest: Reports dyspnea; Denies cough Gastrointestinal Gastrointestinal: Reports abdominal pain, constipation and nausea; Denies vomiting Genitourinary Genitourinary ED: Denies dysuria or hematuria Musculoskeletal Musculoskeletal: Reports back pain; Denies neck pain Integumentary Denies abscess or rash Neurologic Neurologic: Reports headache(s); Denies weakness Allergic/Immunologic Allergic/Immunologic ED: Denies mouth swelling or urticaria EXAM Physical Exam Const Vital Signs: 04/26/24 14:07 04/26/24 16:00 Temperature 97 F L Temperature Source Temporal Pulse Rate 70 59 L Respiratory Rate 16 18 Blood Pressure 171/120 H 121/83 H Blood Pressure Mean 137 95 Pulse Ox 100 99 Oxygen Delivery Method Room Air Room Air Positive well nourished and well developed General Appearance ED: well developed and NAD HEENT Reports moist mucous membranes Neck supple and no JVD Resp normal respiratory effort and clear to auscultation bilaterally Cardio regular rate and regular rhythm GI non-distended Palpation: soft and tender epigastric, RLQ, LUQ and RUQ; Negative for guarding or rebound tenderness present Neuro CN's II-XII intact bilaterally, moves all extremities and no sensory deficits noted Motor Exam: strength 5/5 throughout Psych mental status grossly normal MDM MDM MDM Narrative Medical decision making narrative: Differential diagnosis includes cholecystitis, cholelithiasis, pancreatitis, duodenal ulcer, peptic ulcer disease, gastritis, diverticulitis, ectopic , urinary tract infection, and pyelonephritis. CBC will be obtained to assess for leukocytosis and anemia. Comprehensive metabolic profile will be obtained to assess for hepatic function, renal function, and electrolyte abnormality. Urinalysis will be obtained to assess for urinary tract infection and hematuria. Serum hCG will be obtained to assess for . Lipase will be obtaine (more content not included)... Normal [facility] Lipaseon 04-26-2024 Lipase [Catalytic activity/Vol] 19 U/L Normal 13-75 [facility] Comment on above: Result Comment: Damián rivera note: LIPASE revised reference range effective 22. New Lipase methodology. Expected to produce lower values than the previous assay method. NEW Reference Range: 13 - 75 U/L Performed By: #### M 100.2200 #### [facility] [address] [place], [address] ,Serum,hCG Quali.on 04-26-2024 HCG, SERUM QUAL Negative Normal [facility] Comment on above: Performed By: #### M 100.2200 #### [facility] [address] [place], [address] Urinalysis, Completeon 04-26 BACTERIA 2+ /hpf Normal None Seen [facility] Comment on above: Order Comment: CLEAN CATCH Performed By: #### L 400.0001 #### [facility] [address] [place], [address] WBC 5-10 SEEN Normal 0-5 [facility] Comment on above: Order Comment: CLEAN CATCH Performed By: #### L 400.0001 #### [facility] [address] [place], [address] BILIRUBIN URINE Negative Normal Negative [facility] Comment on above: Order Comment: CLEAN CATCH Performed By: #### L 400.0001 #### [facility] [address] [place], [address] Clarity (U) Clear Normal Clear [facility] Comment on above: Order Comment: CLEAN CATCH Performed By: #### L 400.0001 #### [facility] [address] [place], [address] Color (U) Straw Normal Yellow [facility] Comment on above: Order Comment: CLEAN CATCH Performed By: #### L 400.0001 #### [facility] [address] [place], [address] GLUCOSE, UR Normal Normal Normal [facility] Comment on above: Order Comment: CLEAN CATCH Performed By: #### L 400.0001 #### [facility] [address] [place], [address] KETONE UR Negative Normal Negative [facility] Comment on above: Order Comment: CLEAN CATCH Performed By: #### L 400.0001 #### [facility] [address] [place], [address] LEUK ESTERASE Negative Normal Negative [facility] Comment on above: Order Comment: CLEAN CATCH Performed By: #### L 400.0001 #### [facility] [address] [place], [address] Nitrite Ql (U) Negative Normal Negative [facility] Comment on above: Order Comment: CLEAN CATCH Performed By: #### L 400.0001 #### [facility] [address] [place], [address] OCCULT BLOOD-UR Negative Normal Negative [facility] Comment on above: Order Comment: CLEAN CATCH Performed By: #### L 400.0001 #### [facility] [address] [place], [address] pH UR 6.0 Normal 5.0 - 8.0 [facility] Comment on above: Order Comment: CLEAN CATCH Performed By: #### L 400.0001 #### [facility] [address] [place], [address] PROT DIPSTX 30 mg/dl Abnormal Negative [facility] Comment on above: Order Comment: CLEAN CATCH Performed By: #### L 400.0001 #### [facility] [address] [place], [address] SP.GR. DIPSTX 1.010 Normal 1.002-1.030 [facility] Comment on above: Order Comment: CLEAN CATCH Performed By: #### L 400.0001 #### [facility] [address] [place], [address] UROBILI Normal Normal Normal [facility] Comment on above: Order Comment: CLEAN CATCH Performed By: #### L 400.0001 #### [facility] [address] [place], [address] EPI,SQUAMOUS 0 SEEN Normal 5-10 [facility] Comment on above: Order Comment: CLEAN CATCH Performed By: #### L 400.0001 #### [facility] [address] [place], [address] Mucus Ql (Urine sed) [address] [facility] Comment on above: Order Comment: CLEAN CATCH Performed By: #### L 400.0001 #### [facility] [address] [place], [address] RBC 0 SEEN Normal 0-5 [facility] Comment on above: Order Comment: CLEAN CATCH Performed By: #### L 400.0001 #### [facility] [address] [place], [address] Emergency Department Summary on 01-22-2024 Emergency Department Summary [facility] Medical Records Department [address] [place] [address] Emergency Department Summary 01/22/24 MR#: [id number] Acct: [id number] Name: NATASHA ARCE Rep #: [id number] : 2000 23 From: Gibson Dallas DO PCP: Care Physician,No Primary Status:REG ER Location: ED HPI History of Present Illness Chief Complaint: Shortness of Breath PFSH [facility] Medical History Alpha thalassemia trait Ankle fracture, left Anxiety G6PD deficiency Iron deficiency anemia due to chronic blood loss Ovarian cyst Splenomegaly Home Medications ???Medication ???Instructions ???Recorded ???Last Taken ???Type hydroxyzine HCl 25 mg tablet 25 mg PO TID PRN anxiety #30 tabs 11/12/22 Unknown Rx desvenlafaxine succinate 50 mg 50 mg PO DAILY 03/18/23 Unknown History tablet,extended release 24 hr (Pristiq) lamotrigine 25 mg tablet 25 mg PO DAILY 03/28/23 Unknown History bacitracin 500 unit/gram topical 1 applic topical BID 5 days #14 09/06/23 Unknown Rx ointment grams Allergy/AdvReac Type Severity Reaction Status Date / Time Penicillins (PCN) Allergy Laryngospas Verified 01/22/24 11:17 ms Family History Mother Diabetes Hypertension Grandmother Cancer possibly SCLC, mets to brain; maternal Surgical History History of History of wisdom tooth extraction Social History Smoking Status: Never smoker alcohol intake: never substance use type: does not use EXAM Physical Exam Const Vital Signs: 01/22/24 11:16 01/22/24 11:28 01/22/24 13:16 Temperature 96.9 F L Temperature Source Temporal Pulse Rate 96 78 Respiratory Rate 14 18 Respiratory Effort Normal Respiratory Depth Normal Respiratory Pattern Normal Blood Pressure 145/95 H 138/70 H Blood Pressure Mean 111 92 Pulse Ox 98 99 Oxygen Delivery Method Room Air Room Air Room Air MDM MDM MDM Narrative Medical decision making narrative: HISTORY OF PRESENT ILLNESS: 23-year-old female presents with shortness of breath, sore throat and runny nose. Notes recent sick contact and her son. Notes a friend came home from travel and had the flu. States shortly after she started experiencing symptoms which included shortness of breath, sore throat and runny nose. She denies any shortness of breath or chest pain now. Does note a cough that is nonproductive. She denies any bleeding diathesis. Denies any leg swelling. Denies any fever. She knows she does not take any medication for her complaints The patient denies recent surgery in the last 4 weeks or immobilization in the last 3 days, denies previous diagnosis of DVT or PE, hemoptysis, unilateral leg swelling or malignancy with treatment the last 6 months or palliative. No estrogen use noted. REVIEW OF SYSTEMS: Pertinent positives: Shortness of breath, sore throat and runny nose Pertinent negatives: Leg swelling, chest pain PHYSICAL EXAM: Nursing triage notes reviewed, Vital signs reviewed Constitutional: please see mdm HENT: MMM, no trismus, no submandibular edema, no drooling, patient controlling secretions, no posterior oropharyngeal swelling, uvula midline, Eyes: Pupils equal round and reactive to light, Extraocular muscles intact Neck: No stridor, no JVD, full neck ROM, no thyromegaly, left-sided lymphadenopathy noted, no fluctuant masses, no significant TTP along the path of the internal jugular vein Lungs: Clear to auscultation, No wheezing or rales. No increased work of breathing, no conversational dyspnea, no accessory muscle use, no nasal flaring. No respiratory distress noted Heart: Regular rate and rhythm, No murmurs, No rubs and No gallops, 2+ distal pulses (radial, femoral, posterior tibial) in all extremities Abdomen: Soft, there is no tenderness, rigidity, rebound or guarding, no obvious peritoneal signs, no palpable pulsatile abdominal masses, no auscultated abdominal bruit : No CVAT Extremities: No edema Neuro: No focal neurological deficits, cranial nerves II through XII intact, 5/5 strength in all extremities. Intact sensation to light touch in all extremities, 2+ reflexes bilateral patella tendons. Normal gait. No ataxia. Skin: No rash or lesions noted MEDICAL DECISION MAKING: Chief Complaint: Shortness of breath, runny nose External records reviewed: No recent advanced imaging of the chest. Factors affecting care: G6PD Social determinants of health: none History obtained from others: none Consults: none [facility] Narrative: The patient was hemodynamically stable, afebrile, nontoxic-appearing. Exam wit (more content not included)... Normal [facility] M100.677on 01-22-2024 M100.677 Negative Normal [facility] Comment on above: Performed By: #### M 100.2200 #### [facility] [address] [place], [address] M100.678on 01-22-2024 M100.678 SARS-CoV-2 (COVID 19 ) Negative INFLUENZA A Negative INFLUENZA B Negative RSV PCR Negative Normal [facility] Comment on above: Performed By: #### M 100.2200 #### [facility] [address] [place], [address] .Auto DiffOrdered By: SYSTEM SYSTEM on 08-18-2023 Basophil, Absolute 0.0 103/mcL Normal 0.0-0.2 [facility] above: Performed By: #### C BC, ADIFF, LIP, GFR, CMP, ANEU, MDW #### [facility] [address] [address] Basophils/100 WBC (Bld) 0.7 % Normal 0.0-2.5 [facility] Comment on above: Performed By: #### C BC, ADIFF, LIP, GFR, CMP, ANEU, MDW #### [address] [address] Eosinophil, Absolute 0.2 103/mcL Normal 0.0-0.4 [facility] Comment on above: Performed By: #### C BC, ADIFF, LIP, GFR, CMP, ANEU, MDW #### [address] [address] Eosinophils/100 WBC (Bld) 3.5 % Normal 0.0-7.0 [facility] Comment on above: Performed By: #### C BC, ADIFF, LIP, GFR, CMP, ANEU, MDW #### [address] [address] Lymphocyte, Absolute 2.5 103/mcL Normal 0.8-3.9 [facility] Comment on above: Performed By: #### C BC, ADIFF, LIP, GFR, CMP, ANEU, MDW #### [address] [address] Lymphocytes/100 WBC (Bld) 37.2 % Normal 10.0-50.0 [facility] Comment on above: Performed By: #### C BC, ADIFF, LIP, GFR, CMP, ANEU, MDW #### [address] [address] Monocyte, Absolute 0.4 103/mcL Normal 0.2-1.0 [facility] Comment on above: Performed By: #### C BC, ADIFF, LIP, GFR, CMP, ANEU, MDW #### [address] [address] Monocytes/100 WBC (Bld) 6.6 % Normal 1.7-13.0 [facility] Comment on above: Performed By: #### C BC, ADIFF, LIP, GFR, CMP, ANEU, MDW #### [address] [address] Neutrophils/100 WBC (Bld) 52.0 % Normal 37.0-80.0 AO Workflow SS Comment on above: Performed By: #### C BC, ADIFF, LIP, GFR, CMP, BRITTANY URENA #### [address] [address] .GFRon 08-18-2023 GFR 109 ml/min/1.73sqm Normal [facility] ([place]) Comment on above: Result Comment: GFR Population [...] ADIFF, LIP, GFR, CMP, BRITTANY URENA #### [address] [address] GFR Non- 90 ml/min/1.73sqm Normal [facility] ([place]) Comment on above: Result Comment: GFR Population [...] ADIFF, LIP, GFR, CMP, BRITTANY URENA #### [place] [address] .MDWon 08-18-2023 Monocyte Distribution Width 18.10 Normal 0.00-20.00 [facility] ([place]) Comment on above: Result Comment: For ED adult patients suspected of sepsis, MDW<=20.0 does not rule out sepsis or risk of sepsis Performed By: #### C BC, ADIFF, LIP, GFR, CMP, ANEUBRITTANY #### [place] [address] .NEUABSOrdered By: SYSTEM SY STEM on 08-18-2023 Neutrophil, Absolute 3.5 103/mcL Normal 2.9-6.2 AO Workflow SS Comment on above: Performed By: #### C BC, ADIFF, LIP, GFR, CMP, ANEUBRITTANY #### [place] [address] CBCOrdered By: SYSTEM SYSTEM on 08-18-2023 Erythrocyte distribution width (RBC) [Ratio] 14.1 % Normal 11.5-14.5 AO Workflow SS Comment on above: Performed By: #### C BC, ADIFF, LIP, GFR, CMP, ANEU, BRITTANY #### [place] [address] Hematocrit (Bld) [Volume fraction] 40.6 % Normal 37.0-47.0 AO Workflow SS Comment on above: Performed By: #### C BC, ADIFF, LIP, GFR, CMP, ANEUBRITTANY #### [place] [id number] MCH (RBC) [Entitic mass] 25.8 pg Low 27.0-31.2 AO Workflow SS Comment on above: Performed By: #### C BC, ADIFF, LIP, GFR, CMP, ANEUBRITTANY #### [place] [address] MCHC 32.5 G/dL Low 33.0-37.0 AO Workflow SS Comment on above: Performed By: #### C BC, ADIFF, LIP, GFR, CMP, ANEU, BRITTANY #### [place] [id number] MCV (RBC) [Entitic vol] 79.5 fL Low 80.0-94.0 AO Workflow SS Comment on above: Performed By: #### C BC, ADIFF, LIP, GFR, CMP, BRITTANY URENA #### [address] [address] Platelet mean volume (Bld) [Entitic vol] 10.4 fL Normal 7.4-10.4 AO Workflow SS Comment on above: Performed By: #### C BC, ADIFF, LIP, GFR, CMP, ANEUBRITTANY #### [address] [address] CBCon 08-18-2023 Hgb 13.2 G/dL Normal 12.0-16.0 [facility] ([place] Comment on above: Performed By: #### C BC, ADIFF, LIP, GFR, CMP, BRITTANY URENA #### [address] [address] Platelet 254 10 3/mcL Normal 130-400 [facility] [place] Comment on above: Performed By: #### C BC, ADIFF, LIP, GFR, CMP, BRITTANY URENA #### [address] [address] RBC 5.11 10 6/mcL Normal 4.20-5.40 [facility] [place] Comment on above: Performed By: #### C BC, ADIFF, LIP, GFR, CMP, BRITTANY URENA #### [address] [address] WBC 6.7 10 3/mcL Normal 4.6-10.8 [facility] [place] Comment on above: Performed By: #### C BC, ADIFF, LIP, GFR, CMP, BRITTANY URENA #### [address] [address] CMPon 08-18-2023 Albumin Level 3.3 G/dL Low 3.5-5.0 [facility] [place] Comment on above: Performed By: #### C BC, ADIFF, LIP, GFR, CMP, BRITTANY URENA #### [address] [address] ALT [Catalytic activity/Vol] 48 U/L Normal 14-59 [facility] [place] Comment on above: Performed By: #### C BC, ADIFF, LIP, GFR, CMP, BRITTANY URENA #### [place] [address] [place], [place] [address] AST [Catalytic activity/Vol] 17 U/L Normal 10-40 [facility] [place] Comment on above: Performed By: #### C BC, ADIFF, LIP, GFR, CMP, BRITTANY URENA #### [address] [address] Bili Total 0.3 mg/dL Normal 0.2-1.0 [facility] [place] Comment on above: Result Comment: Use of this assay is not recommended for patients undergoing treatment with eltrombopag due to the potential for falsely elevated results. Performed By: #### C BC, ADIFF, LIP, GFR, CMP, BRITTANY URENA #### [address] [address] BUN/Creatinine Ratio 9 ratio Normal 7-27 [facility] [place] Comment on above: Performed By: #### C BC, ADIFF, LIP, GFR, CMP, BRITTANY URENA #### [address] [address] Total Protein 6.8 G/dL Normal 6.4-8.2 [facility] [place] Comment on above: Performed By: #### C BC, ADIFF, LIP, GFR, CMP, BRITTANY URENA #### [address] [address] CMPOrdered By: SYSTEM SYSTEM on 08-18-2023 Albumin/Globulin [Mass ratio] 0.9 {ratio} Low 1.1-2.5 AO ADM SS Comment on above: Performed By: #### C BC, ADIFF, LIP, GFR, CMP, BRITTANY URENA #### [address] [address] ALP [Catalytic activity/Vol] 96 U/L Normal 40-135 AO ADM SS Comment on above: Performed By: #### C BC, ADIFF, LIP, GFR, CMP, BRITTANY URENA #### [place] [address] [address] Calcium [Mass/Vol] 8.6 mg/dL Normal 8.4-10.2 AO ADM SS Comment on above: Performed By: #### C BC, ADIFF, LIP, GFR, CMP, BRITTANY URENA #### [place] [address] Chloride [Moles/Vol] 104 mmol/L Normal 98-107 AO A DM SS Comment on above: Performed By: #### C BC, ADIFF, LIP, GFR, CMP, BRITTANY URENA #### [place] [address] CO2 [Moles/Vol] 30 mmol/L High 22-29 AO ADM SS Comment on above: Performed By: #### C BC, ADIFF, LIP, GFR, CMP, BRITTANY URENA #### [place] [address] Creatinine [Mass/Vol] 0.79 mg/dL Normal 0.55-1.02 AO ADM SS Comment on above: Performed By: #### C BC, ADIFF, LIP, GFR, CMP, BRITTANY URENA #### [place] [address] [address] Electrolyte Balance 8.0 mEq/L Normal 4.0-15.0 AO AD M SS Comment on above: Performed By: #### C BC, ADIFF, LIP, GFR, CMP, BRITTANY URENA #### [place] [address] [address] Globulin 3.5 G/dL Normal AO ADM SS Comment on above: Performed By: #### C BC, ADIFF, LIP, GFR, CMP, BRITTANY URENA #### [place] [address] Glucose [Mass/Vol] 94 mg/dL Normal 70-105 AO ADM SS Comment on above: Performed By: #### C BC, ADIFF, LIP, GFR, CMP, BRITTANY URENA #### [place] [address] [address] Potassium [Moles/Vol] 4.0 mmol/L Normal 3.5-5.1 AO ADM SS Comment on above: Performed By: #### C BC, ADIFF, LIP, GFR, CMP, ANEU, W #### [place] [address] [address] Sodium [Moles/Vol] 142 mmol/L Normal 136-145 AO ADM SS Comment on above: Performed By: #### C BC, ADIFF, LIP, GFR, CMP, ANEU, BRITTANY #### [place] [address] [address] Urea nitrogen [Mass/Vol] 7 mg/dL Normal 7-18 AO ADM SS Comment on above: Performed By: #### C BC, ADIFF, LIP, GFR, CMP, ANEU, BRITTANY #### [place] [address] [address] [address] ABD/PELVIS W/ IV CONTRAST ONLYon 08-18-2023 [...] 08/18/2023 9:09:18 PM Ordering Provider: ELISABETH DAVID [facility] ([place]) LABORATORYOrdered By: SYSTEM SYSTEM on 08-18-2023 Albumin [...] 08-18-2023 Lipase Level 18 U/L Normal 16-77 [facility] [place] Comment on above: Performed By: #### C BC, ADIFF, LIP, GFR, CMP, ANEU, MDW #### [address] [address] PREGUon 08-18-2023 HCG ( test) Ql (U) Negative Normal [facility] ([place] Comment on above: Performed By: #### U A, PREGU #### [address] [address] PREGUOrdered By: Bere crystal on 08-18-2023 test (u) int Not detected Invalid Interpretation Code AO Manual Urine SS Comment on above: Performed By: #### U A, PREGU #### [address] [address] UAon 08-18-2023 Color (U) Yellow Normal [facility] ([place] Comment on above: Performed By: #### U A, PREGU #### [address] [address] Glucose (U) [Mass/Vol] Negative Normal Negative [facility] ([place]) Comment on above: Performed By: #### U A, PREGU #### [address] [address] UA Appear Clear Normal Clear [facility] [place] Comment on above: Performed By: #### U A, PREGU #### [address] [address] UA Blood Negative Normal Negative [facility] ([place] Comment on above: Performed By: #### U A, PREGU #### [address] [address] UA Leuk Est Negative Normal Negative [facility] [place] Comment on above: Performed By: #### U A, PREGU #### [address] [address] UA Nitrite Negative Normal Negative [facility] [place] Comment on above: Performed By: #### U A, PREGU #### [place] [address] UA pH 6.0 Normal 5.0 - 8.0 [facility] [place] Comment on above: Performed By: #### U A, PREGU #### [address] [address] UA Spec Grav 1.015 Normal 1.015-1.025 [facility] ([place] Comment on above: Performed By: #### U A, PREGU #### [place] [address] UA Specimen Type Clean Catch Normal [facility] [place] Comment on above: Performed By: #### U A, PREGU #### [place] [address] UA Urobilinogen 0.2 E.U./dL Normal 0.2-1.0 [facility] ([place] Comment on above: Performed By: #### U A, PREGU #### [place] [address] Urobilinogen (U) [Mass/Vol] Negative Normal Negative [facility] [place] Comment on above: Performed By: #### U A, PREGU #### [address] [address] UAOrdered By: Bere zeng on 08-18-2023 Ketones Ql (U) Negative Normal Negative AO Auto Urine SS Comment on above: Performed By: #### U A, PREGU #### [address] [address] UA Protein Negative Normal Negative AO Auto Urine SS Comment on above: Performed By: #### U A, PREGU #### [address] [address] Absolute lymphocyte countOrd ered By: Michelle Kowalski on 03-18-2023 Lymphocytes Auto (Unsp spec) [#/Vol] 2.61 10*3/uL 0.83-4.51 [facility] Basophil percentageOrdered B y: Michelle Kowalski on 03-18-2023 Basophils/100 WBC (Bld) 0.7 % 0-1 [facility] Bilirubin [Mass/Vol] 0.40 mg/dL 0.20-1.00 [facility] Comment on above: For patients on eltr ombopag therapy, use of Dimension [place] TBIL is not recommended. Chloride [Moles/Vol] 107 mmol/L 98-107 [facility] Eosinophils/100 WBC (Bld) 5.2 % 0-5 [facility] Glucose [Mass/Vol] 97 mg/dL 74-106 [facility] LDH [Catalytic activity/Vol] 115 U/L 84-246 [facility] Neutrophils (Bld) [#/Vol] 5.0 10*3/uL 2.0-7.7 [facility] Neutrophils/100 WBC (Bld) 56.7 % 47-70 [facility] Potassium [Moles/Vol] 4.0 mmol/L 3.5-5.1 [facility] Protein [Mass/Vol] 7.5 g/dL 6.4-8.2 [facility] Sodium [Moles/Vol] 140 mmol/L 136-145 [facility] WBC (Bld) [#/Vol] 8.8 10*3/uL 4.4-11.0 [facility] Blood erythrocytes count (nu mber/volume)Ordered By: Michelle Kowalski on 03-18-2023 RBC (Bld) [#/Vol] 5.37 10*6/uL 4.2-5.4 [facility] RBC (Bld) [#/Vol] 5.31 10*6/uL 3.77-5.28 [facility] Blood hemoglobin measurement (mass/volume)Ordered By: Michelle Kowalski on 03-18-2023 Hemoglobin (Bld) [Mass/Vol] 9.6 g/dL 12.0-15.0 [facility] Blood lymphocytes/100 leukoc ytesOrdered By: Michelle Kowalski on 03-18-2023 Lymphocytes/100 WBC (Bld) 29.7 % 19-41 [facility] Blood monocytes/100 leukocyt esOrdered By: Michelle Kowalski on 03-18-2023 Monocytes/100 WBC (Bld) 7.5 % 0-10 [facility] Determination of erythrocyte mean corpuscular volume (MCV)Ordered By: Michelle Kowalski on 03-18-2023 MCV (RBC) [Entitic vol] 63.7 fL 81-99 [facility] Erythrocyte [id number] ate dehydrogenase (enzymatic activity/mass)Ordered By: Michelle Kowalski on 03-18-2023 G6PD (RBC) [Catalytic activity/Mass] 79 155-399 [facility] Comment on above: Result Units: U/10E1 2 RBCWhen decreased, G-6-PD, Quant. values are associated withacute hemolytic anemia when deficient individuals areexposed to oxidative stress, such as with certainmedications (e.g., primaquine), infection, or ingestion offava beans. Caution: In patients with acute hemolysis(e.g., abnormally low RBC values), testing for G-6-PD maybe falsely normal because older erythrocytes with a higherenzyme deficiency have been hemolyzed. Young erythrocytesand reticulocytes have normal or near-normal enzymeactivity. Normal values of G-6-PD may be measured forseveral weeks following a hemolytic event. HIV 1 and HIV-2 antibody ass ay with HIV-1 p24 antigen detectionOrdered By: Mcihelle Kowalski on 03-18-2023 HIV 1+2 Ab+HIV1 p24 Ag IA Ql Non-Reactive Nonreactive [facility] Hematocrit Auto (Bld) [Volum e fraction]Ordered By: [facility] on 03-18-2023 Hematocrit (Bld) [Volume fraction] 34.2 % 37-47 [facility] Hemoglobin in reticulocytes (mass per reticulocyte)Ordered By: [facility] Dex on 03-18-2023 Hemoglobin (Reticulocytes) [Entitic mass] 18.3 pg 30-35 [facility] Iron measurement (mass/mass) Ordered By: [facility] Dex on 03-18-2023 Iron (Unsp spec) [Mass/Mass] 15 ug/dL 50-170 [facility] Laboratory - Chemistry and C hemistry - challengeOrdered By: [facility] Dex on 03-18-2023 ALP [Catalytic activity/Vol] 83 U/L 45-117 [facility] ALT [Catalytic activity/Vol] 23 U/L 13-56 [facility] CO2 [Moles/Vol] 27.0 mmol/L 21.0-32.0 [facility] Globulin (S) [Mass/Vol] 4.1 g/dL 2.2-4.2 [facility] Urea nitrogen/Creatinine [Mass ratio] 17.2 mg/mg 10-20 [facility] Laboratory - Hematology and Cell countsOrdered By: [facility] Dex on 03-18-2023 Erythrocyte distribution width (RBC) [Entitic vol] 41.8 fL 35.1-43.9 [facility] Erythrocyte distribution width (RBC) [Ratio] 19.3 % 11.6-14.6 [facility] Immature granulocytes/100 WBC (Bld) 0.200 % 0.0-0.9 [facility] Comment on above: IG% - Immature Granu locytes (promyelocytes, myelocytes and metamyelocytes) > 1% indicates that a LEFT SHIFT is Present. MCH (RBC) [Entitic mass] 17.9 pg 27.0-32.0 [facility] Nucleated RBC/100 WBC (Bld) [Ratio] 0 % 0-5 [facility] MCHC Auto (RBC) [Mass/Vol]Or dered By: [facility] Kowalski on 03-18-2023 MCHC (RBC) [Mass/Vol] 28.1 g/dL 32-36 [facility] No Panel InformationOrdered By: Michelle Kowalski on 03-18-2023 Estimated GFR (MDRD) Amer 165 mL/min >60 [facility] Comment on above: GFR Calc Estimated GFR (MDRD) Non-Af Amer 136 mL/min >60 [facility] Comment on above: Non- GFR Calc Haptoglobin 153 mg/dL 33-278 [facility] Comment on above: Performed at: [facility] [employer] [address] [id number] Director: Trino Manriquez PhD, Phone: [phone] at: - [address] [id number] Director: Justin Tatum MD, Phone: [phone] Immature Platelet Fraction 7.8 % 1.0-7.9 [facility] Comment on above: Low PLT + Low IPF moreno ggest a bone marrow production disorderLow PLT + high IPF suggests peripheral destruction(e.g.ITP, TTP, HIT, DIC, autoimmune) or bone marrow recoveryTrending of serial IPF measurements is recommended when evaluating for bone marrow responesValue above normal range indicates an increase in RBC cellular response from bone marrow. Immature Reticulocyte Fraction 20.70 % 3.00-15.90 [facility] Miscellaneous Test See comment [facility] Comment on above: TEST RESULTS LIMITSH emoglobpathy+Zain w/A Thal RfxHgb Fractionation by CE: 01Hgb F 01 0.0 % 0.0-2.0Hgb A01 98.2 % 96.4-98.8Hgb A201 1.8 % 1.8-3.2Hgb S01 0.0 % 0.0Interpretation: 01Normal hemoglobin present; no hemoglobin variant or beta thalassemiaidentified.Note: Alpha thalassemia may not be detected by the Hgb FractionationCascade panel. If alpha thalassemia is suspected, [facility] offers Alpha-Thalassemia DNA Analysis (#[id number]).Ferritin 6 Low ng/mL 15-150CBC and Platelet Ct WBC 9.3 x10E3/uL 3.4-10.8RBC 5.47 High x10E6/uL 3.77-5.28Hemoglobin 9.4 Low g/dL 11.1-15.9Hematocrit 34.3 % 34.0-46.6MCV 63 Low fL 79-97MCH 17.2 Low pg 26.6-33.0MCHC 27.4 Low g/dL 31.5-35.7RDW 17.9 High % 11.7-15.4Platelets 419 x10E3/uL 150-450Alpha Thal Reflex Not indicated. ____ TESTING PERFORMED AT [facility]. ORIGINAL REPORT ON FILE IN LAB CONTAINS ADDITIONAL TEST SITE INFORMATION. Reticulocyte Count 1.48 % 0.5-1.5 [facility] Total Iron Binding Capacity 450 ug/dL 250-450 [facility] Ovalocyte detectionOrdered B y: Michelle Kowalski on 03-18-2023 Ovalocytes LM Ql (Bld) 1+ Wo [facility] Platelets bldOrdered By: Joselito Kowalski on 03-18-2023 Platelets (Bld) [#/Vol] 414 10*3/uL 150-450 [facility] Serum or plasma albumin brennan urement (mass/volume)Ordered By: Michelle Kowalski on 03-18-2023 Albumin [Mass/Vol] 3.4 g/dL 3.2-5.0 [facility] Serum or plasma albumin/glob ulin mass ratioOrdered By: Michelle Kowalski on 03-18-2023 Albumin/Globulin [Mass ratio] 0.8 {ratio} 0.9-2.4 [facility] Serum or plasma calcium brennan urement (mass/volume)Ordered By: Michelle Kowalski on 03-18-2023 Calcium [Mass/Vol] 8.5 mg/dL 8.5-10.1 [facility] Serum or plasma creatinine m easurement (mass/volume)Ordered By: Michelle Kowalsik on 03-18-2023 Creatinine [Mass/Vol] 0.58 mg/dL 0.55-1.02 [facility] Comment on above: The validity of the calculated GFR & GFRAA in patients over 70 years has not been determined. Clinical correlation is essential. Serum or plasma ferritin shay surement (mass/volume)Ordered By: Michelle Kowalski on 03-18-2023 Ferritin [Mass/Vol] 3 ng/mL 8-252 [facility] Serum or plasma iron saturat ion measurement (mass fraction)Ordered By: [facility] K[facility]ki on 03-18-2023 Iron saturation [Mass fraction] 3.3 % 15.0-55.0 [facility] Serum or plasma urea nitroge n measurement (mass/volume)Ordered By: Michelle Kowalski on 03-18-2023 Urea nitrogen [Mass/Vol] 10 mg/dL 7-18 [facility] Thin prep Papanicolaou smear with manual screeningOrdered By: Michelle Kowalski on 03-18-2023 Thin prep Papanicolaou smear with manual screening 11 U/L 15-37 [facility] Thin prep Papanicolaou smear with manual screening 6 5-15 [facility] Basophil percentageOrdered B y: Giacomo Kwon on 03-01-2023 Basophil percentage 0 SEEN /hpf 0-5 [facility] Beta hCG serum qualOrdered B y: Giacomo Kwon on 03-01-2023 Beta HCG ( test) Ql Negative [facility] Bilirubin Test strip Ql (U)O rdered By: Giacomo Kwon on 03-01-2023 Bilirubin Ql (U) Negative Negative [facility] Ketones Test strip Ql (U)Ord ered By: Giacomo Kwon on 03-01-2023 Ketones Ql (U) Negative Negative [facility] Mucus LM Ql (Urine sed)Order ed By: Giacomo Kwon on 03-01-2023 Mucus Ql (Urine sed) 0 SEEN /hpf [facility] Nitrite Test strip Ql (U)Ord ered By: Giacomo Kwon on 03-01-2023 Nitrite Ql (U) Negative Negative [facility] Protein Test strip Ql (U)Ord ered By: Giacomo Kwon on 03-01-2023 Protein Ql (U) Negative Negative [facility] Squamous epithelial cells de tection in urine sediment by light microscopyOrdered By: Giacomo Kwon on 03-01-2023 Epithelial cells.squamous LM Ql (Urine sed) 0-5 SEEN /hpf 5-10 [facility] Urine blood detectionOrdered By: Giacomo Kwon on 03-01-2023 RBC Ql (U) Negative Negative [facility] RBC Ql (U) 0 SEEN /hpf 0-5 [facility] Urine clarityOrdered By: Keeley Kwon on 03-01-2023 Clarity (U) Clear Clear [facility] Urine color determinationOrd ered By: Giacomo Kwon on 03-01-2023 Color (U) Yellow Yellow [facility] Urine glucose detectionOrder ed By: Giacomo Kwon on 03-01-2023 Glucose Ql (U) Normal mg/dl Normal [facility] Urine leukocyte esterase det ection by dipstickOrdered By: Giacomo Kwon on 03-01-2023 Leukocyte esterase Test strip Ql (U) Negative Negative [facility] Urine pHOrdered By: Giacomo Kwon on 03-01-2023 pH (U) 7.0 [pH] 5.0 - 8.0 [facility] Urine sediment bacteria coun t by microscopy (number/high power field)Ordered By: Giacomo Kwon on 03-01-2023 Bacteria LM.HPF (Urine sed) [#/Area] 1 /[HPF] None Seen [facility] Urine specific gravity measu rementOrdered By: Giacomo Kwon on 03-01-2023 Specific gravity (U) [Rel density] 1.010 1.002-1.030 [facility] Urobilinogen Auto test strip Ql (U)Ordered By: Giacomo Kwon on 03-01-2023 Urobilinogen Ql (U) Normal mg/dl Normal [facility] Vital Signs Date Time Vital Sign Value Performing Clinician Facility 12-17-2024 18:16-0400 Body temperature 98.1 [degF] Juan Antonio Rodriguez APRN.ANODIZING LINE OPERATOR Work Phone: [facility] 12-17-2024 18:16-0400 Body weight 110.[address] [facility] MACHINE ASSEMBLER.ANODIZING LINE OPERATOR Work Phone: [facility] 12-17-2024 18:16-0400 Diastolic blood pressure 72 mm[Hg] [facility] MACHINE ASSEMBLER.ANODIZING LINE OPERATOR Work Phone: [facility] 12-17-2024 18:16-0400 Heart rate 71 /min [facility] MACHINE ASSEMBLER.ANODIZING LINE OPERATOR Work Phone: [facility] 12-17-2024 18:16-0400 Respiratory rate 18 /min [facility] MACHINE ASSEMBLER.ANODIZING LINE OPERATOR Work Phone: [facility] 12-17-2024 18:16-0400 SaO2% (BldA) [Mass fraction] 99 % [facility] MACHINE ASSEMBLER.ANODIZING LINE OPERATOR Work Phone: [facility] 12-17-2024 18:16-0400 Systolic blood pressure 129 mm[Hg] [facility] MACHINE ASSEMBLER.ANODIZING LINE OPERATOR Work Phone: [facility] 10-13-2023 22:13-0400 Body temperature 97.7 [degF] AZAM CASTRO MD [facility] 10-13-2023 22:13-0400 Diastolic Blood Pressure Non-Invasive 75 mm[Hg] AZAM CASTRO MD [facility] 10-13-2023 22:13-0400 Heart rate 84 /min AZAM CASTRO MD [facility] 10-13-2023 22:13-0400 Respiratory rate 16 /min AZAM CASTRO MD [facility] 10-13-2023 22:13-0400 Systolic Blood Pressure Non-Invasive 140 mm[Hg] AZAM CASTRO MD [facility] 09-06-2023 21:28-0500 Body temperature 97.3 [degF] [facility] 09-06-2023 21:28-0500 Diastolic blood pressure 87 mm[Hg] [facility] 09-06-2023 21:28-0500 Heart rate 81 /min [facility] 09-06-2023 21:28-0500 Respiratory rate 16 /min [facility] 09-06-2023 21:28-0500 SaO2% (BldA) [Mass fraction] 99 % [facility] 09-06-2023 21:28-0500 Systolic blood pressure 112 mm[Hg] [facility] 09-06-2023 21:25-0500 Body mass index (BMI) [Ratio] 42.5 kg/m2 [facility] 09-06-2023 21:25-0500 Body weight 112.58 kg [facility] 09-06-2023 20:50-0500 Body height 162.56 cm [facility] 08-18-2023 20:15-0500 Diastolic Blood Pressure Non-Invasive 66 mm[Hg] ELISABETH ELAtreca [facility] 08-18-2023 20:15-0500 Heart rate 51 /min ELISABETH ELAtreca [facility] 08-18-2023 20:15-0500 Respiratory rate 18 /min ELISABETH العراقيTianzhou Communication [facility] 08-18-2023 20:15-0500 Systolic Blood Pressure Non-Invasive 123 mm[Hg] ELISABETH ELT DO [facility] 08-18-2023 19:42-0500 Body temperature 97.88 [degF] ELISABETH ELT DO [facility] 08-18-2023 19:42-0500 Diastolic Blood Pressure Non-Invasive 87 mm[Hg] ELISABETH العراقي[employer] [facility] 08-18-2023 19:42-0500 Heart rate 68 /min ELISABETH DAVID [employer] [facility] 08-18-2023 19:42-0500 Respiratory rate 18 /min ELISABETH DAVID [employer] [facility] 08-18-2023 19:42-0500 Systolic Blood Pressure Non-Invasive 140 mm[Hg] ELISABETH DAVID [employer] [facility] 06-24-2023 23:07-0500 Body height 162.56 cm No Primary Care Physician [facility] 06-24-2023 23:07-0500 Body mass index (BMI) [Ratio] 41.3 kg/m2 No Primary Care Physician [facility] 06-24-2023 23:07-0500 Body temperature 97.5 [degF] No Primary Care Physician [facility] 06-24-2023 23:07-0500 Body weight 109.31 kg No Primary Care Physician [facility] 06-24-2023 23:07-0500 Diastolic blood pressure 107 mm[Hg] No Primary Care Physician [facility] 06-24-2023 23:07-0500 Heart rate 86 /min No Primary Care Physician [facility] 06-24-2023 23:07-0500 Respiratory rate 16 /min No Primary Care Physician [facility] 06-24-2023 23:07-0500 SaO2% (BldA) [Mass fraction] 98 % No Primary Care Physician [facility] 06-24-2023 23:07-0500 Systolic blood pressure 150 mm[Hg] No Primary Care Physician [facility] 04-18-2023 12:40-0400 Body temperature 97.1 [degF] No Primary Care Physician [facility] 04-18-2023 12:40-0400 Diastolic blood pressure 70 mm[Hg] No Primary Care Physician [facility] 04-18-2023 12:40-0400 Heart rate 56 /min No Primary Care Physician [facility] 04-18-2023 12:40-0400 Respiratory rate 16 /min No Primary Care Physician [facility] 04-18-2023 12:40-0400 SaO2% (BldA) [Mass fraction] 100 % No Primary Care Physician [facility] 04-18-2023 12:40-0400 Systolic blood pressure 126 mm[Hg] No Primary Care Physician [facility] 04-18-2023 12:12-0400 Body mass index (BMI) [Ratio] 43.9 kg/m2 No Primary Care Physician [facility] 04-18-2023 12:12-0400 Body weight 116.11 kg No Primary Care Physician [facility] 03-28-2023 15:02-0400 Body mass index (BMI) [Ratio] 42.9 kg/m2 No Primary Care Physician [facility] 03-28-2023 15:02-0400 Body temperature 97.5 [degF] No Primary Care Physician [facility] 03-28-2023 15:02-0400 Body weight 113.39 kg No Primary Care Physician [facility] 03-28-2023 15:02-0400 Diastolic blood pressure 89 mm[Hg] No Primary Care Physician [facility] 03-28-2023 15:02-0400 Heart rate 73 /min No Primary Care Physician [facility] 03-28-2023 15:02-0400 Respiratory rate 16 /min No Primary Care Physician [facility] 03-28-2023 15:02-0400 SaO2% (BldA) [Mass fraction] 98 % No Primary Care Physician [facility] 03-28-2023 15:02-0400 Systolic blood pressure 132 mm[Hg] No Primary Care Physician [facility] 03-18-2023 09:58-0400 Body mass index (BMI) [Ratio] 42.4 kg/m2 No Primary Care Physician [facility] 03-18-2023 09:58-0400 Body temperature 98.2 [degF] No Primary Care Physician [facility] 03-18-2023 09:58-0400 Body weight 112.15 kg No Primary Care Physician [facility] 03-18-2023 09:58-0400 Diastolic blood pressure 87 mm[Hg] No Primary Care Physician [facility] 03-18-2023 09:58-0400 Heart rate 91 /min No Primary Care Physician [facility] 03-18-2023 09:58-0400 Respiratory rate 16 /min No Primary Care Physician [facility] 03-18-2023 09:58-0400 SaO2% (BldA) [Mass fraction] 99 % No Primary Care Physician [facility] 03-18-2023 09:58-0400 Systolic blood pressure 124 mm[Hg] No Primary Care Physician [facility] 03-06-2023 14:51-0400 Body mass index (BMI) [Ratio] 42.4 kg/m2 No Primary Care Physician [facility] 03-06-2023 14:51-0400 Body temperature 97.4 [degF] No Primary Care Physician [facility] 03-06-2023 14:51-0400 Body weight 112.03 kg No Primary Care Physician [facility] 03-06-2023 14:51-0400 Diastolic blood pressure 89 mm[Hg] No Primary Care Physician [facility] 03-06-2023 14:51-0400 Heart rate 77 /min No Primary Care Physician [facility] 03-06-2023 14:51-0400 Respiratory rate 17 /min No Primary Care Physician [facility] 03-06-2023 14:51-0400 SaO2% (BldA) [Mass fraction] 95 % No Primary Care Physician [facility] 03-06-2023 14:51-0400 Systolic blood pressure 126 mm[Hg] No Primary Care Physician [facility] 03-01-2023 07:05-0400 Diastolic blood pressure 90 mm[Hg] [facility] 03-01-2023 07:05-0400 Heart rate 54 /min [facility] 03-01-2023 07:05-0400 Respiratory rate 14 /min [facility] 03-01-2023 07:05-0400 SaO2% (BldA) [Mass fraction] 97 % [facility] 03-01-2023 07:05-0400 Systolic blood pressure 128 mm[Hg] [facility] 03-01-2023 05:10-0400 Body height 162.56 cm [facility] 03-01-2023 05:10-0400 Body mass index (BMI) [Ratio] 42.7 kg/m2 [facility] 03-01-2023 05:10-0400 Body temperature 97.4 [degF] [facility] 03-01-2023 05:10-0400 Body weight 113 kg [facility] 11-12-2022 14:290400 Body height 162.56 cm [facility] 11-12-2022 14:29-0400 Body mass index (BMI) [Ratio] 43.4 kg/m2 [facility] 11-12-2022 14:29-0400 Body temperature 96.8 [degF] [facility] 11-12-2022 14:29040 Body weight 114.98 kg [facility] 11-12-2022 14:290400 Diastolic blood pressure 103 mm[Hg] [facility] 11-12-2022 14:290400 Heart rate 109 /min [facility] 11-12-2022 14:290400 Respiratory rate 20 /min [facility] 11-12-2022 14:290400 SaO2% (BldA) [Mass fraction] 98 % [facility] 11-12-2022 14:290400 Systolic blood pressure 165 mm[Hg] [facility] Encounters Encounter Date Encounter Type Care Provider Facility Start: 12-17-2024 End: 12-17-2024 Office outpatient new 20 minutes Juan Antonio Rodriguez APRN.[facility] Work Phone: [facility] Comment on above: Injury of right hand , initial encounter (Primary Dx) Start: 10-30-2024 End: 10-30-2024 Emergency department patient visit Smiley Bo Facility:[facility] Start: 07-26-2024 End: 07-26-2024 Emergency department patient visit No Primary Care Physician Facility:[facility] Start: 06-03-2024 Encounter for other preprocedural examination Landon Salazar [facility] Start: 05-21-2024 End: 05-21-2024 ambulatory No Primary Care Physician Facility:[facility] Start: 05-13-2024 End: 05-13-2024 Emergency department patient visit Mark Lutz Facility:[facility] Start: 05-07-2024 ambulatory No Primary Car e Physician Facility:[facility] Start: 05-07-2024 End: 05-07-2024 ambulatory No Primary Care Physician Facility:[facility] Start: 05-05-2024 End: 05-05-2024 ambulatory No Primary Care Physician Facility:[facility] Start: 05-04-2024 ambulatory Landon Salazar Facility: [facility] Start: 05-03-2024 End: 05-03-2024 Emergency department patient visit Mark Lutz Facility:[facility] Start: 04-30-2024 End: 04-30-2024 ambulatory No Primary Care Physician Facility:[facility] Start: 04-26-2024 End: 04-26-2024 Emergency department patient visit No Primary Care Physician Facility:[facility] Start: 01-22-2024 End: 01-22-2024 Emergency department patient visit No Primary Care Physician Facility:[facility] Start: 10-14-2023 End: 10-14-2023 Emergency department patient visit AZAM CASTRO MD Facility:[facility] Start: 10-13-2023 End: 10-13-2023 Emergency department patient visit AZAM CASTRO MD [facility] Start: 09-06-2023 End: 09-06-2023 Emergency department patient visit [facility] Work Phone: Start: 08-18-2023 End: 08-18-2023 Emergency department patient visit ELISABETH DAVID Facility:[facility] Start: 08-18-2023 End: 08-18-2023 Emergency department patient visit ELISABETH DAVID DO [facility] Start: 06-24-2023 End: 06-25-2023 Emergency department patient visit No Primary Care Physician [facility] Work Phone: Start: 04-18-2023 Registered Recurring No Primar y Care Physician [facility] Start: 03-28-2023 End: 03-28-2023 Patient encounter procedure No Primary Care Physician [facility] Work Phone: Start: 03-18-2023 End: 03-18-2023 Patient encounter procedure No Primary Care Physician [facility] Work Phone: Start: 03-06-2023 End: 03-06-2023 Patient encounter procedure No Primary Care Physician [facility] Work Phone: Start: 03-01-2023 End: 03-01-2023 Emergency department patient visit [facility] Work Phone: Start: 11-20-2022 End: 11-20-2022 Emergency department patient visit NIYAHLEANDER MANCINI Facility:[facility] Start: 11-17-2022 End: 11-17-2022 Emergency department patient visit DR RODOLFO WAN DO Facility:[facility] Start: 11-12-2022 End: 11-12-2022 Emergency department patient visit [facility] Procedures Date Procedure Procedure Detail Performing Clinician Start: 03-01-2023 CT of abdomen and pe lvis without contrast Plan of Treatment Date Care Activity Detail Author Start: 12-17-2034 Urine microalbumin profile DTaP,Tdap,Td Vaccine (6 - Td or Tdap) [facility] Start: 03-01-2025 Influenza vaccination Influenza Vaccine (Season Ended) [facility] Start: 03-01-2024 Covid-19 Vaccine ( season) Covid-19 Vaccine ( season) [facility] Start: 09-06-2023 [facility] Start: 03-06-2023 Patient referral [facility] Work Phone: Start: 11-12-2022 Electrocardiographic procedure [facility] Start: 02-19-2021 Screening for malignant neoplasm of cervix Cervical Cancer Screening [facility] Start: 02-19-2018 Anxiety Screening Anxiety Screening [facility] Start: 02-19-2018 Depression Screening Depression Screening [facility] Start: 02-19-2018 Hepatitis C screening Hepatitis C Screening [facility] Start: 02-19-2018 HIV screening HIV Screening [facility] Start: 02-19-2015 HPV Vaccine (1 - 3-dose series) HPV Vaccine (1 - 3-dose series) [facility] Start: 02-19-2014 Peds To Adult Transition Annual Assessment Peds To Adult Transition Annual Assessment [facility] Start: 2012 Peds To Adult Transition Initial Discussion Peds To Adult Transition Initial Discussion [facility] Patient Education [facility] Work Phone: Patient referral [facility] Work Phone: Immunizations Immunization Date Immunization Notes Care Provider Vannesa jackson 12-17-2024 tetanus toxoid, redu josé luis diphtheria toxoid, and acellular pertussis vaccine, adsorbed Juan Antonio Pendlebury MACHINE ASSEMBLER.ANODIZING LINE OPERATOR Work Phone: [facility] 08-17-2008 hepatitis A vaccine, pediatric/adolescent dosage, 2 dose schedule Juan Antonio Pendlebury MACHINE ASSEMBLER.ANODIZING LINE OPERATOR Work Phone: [facility] 08-17-2008 tetanus toxoid, redu josé luis diphtheria toxoid, and acellular pertussis vaccine, adsorbed Juan Antonio Pendlebury MACHINE ASSEMBLER.ANODIZING LINE OPERATOR Work Phone: [facility] 08-17-2008 varicella virus vaccine Mark haydee Pendlebury MACHINE ASSEMBLER.ANODIZING LINE OPERATOR Work Phone: [facility] 01-31-2005 diphtheria, tetanus toxoids and acellular pertussis vaccine Juan Antonio Pendlebury MACHINE ASSEMBLER.ANODIZING LINE OPERATOR Work Phone: [facility] 01-31-2005 measles, mumps and rubella virus vaccine Juan Antonio Pendlebury MACHINE ASSEMBLER.ANODIZING LINE OPERATOR Work Phone: [facility] 01-31-2005 poliovirus vaccine, inactivated Juan Antonio Pendlebury MACHINE ASSEMBLER.ANODIZING LINE OPERATOR Work Phone: [facility] 04-24-2002 poliovirus vaccine, inactivated Juan Antonio Pendlebury MACHINE ASSEMBLER.ANODIZING LINE OPERATOR Work Phone: [facility] 10-21-2001 diphtheria, tetanus toxoids and acellular pertussis vaccine Juan Antonio Pendlebury MACHINE ASSEMBLER.ANODIZING LINE OPERATOR Work Phone: [facility] 10-21-2001 pneumococcal conjuga te vaccine, 7 valent Juan Antonio Pendlebury MACHINE ASSEMBLER.ANODIZING LINE OPERATOR Work Phone: [facility] 10-21-2001 poliovirus vaccine, inactivated Juan Antonio Pendlebury MACHINE ASSEMBLER.ANODIZING LINE OPERATOR Work Phone: [facility] 10-21-2001 varicella virus vaccine Mark haydee Pendlebury MACHINE ASSEMBLER.ANODIZING LINE OPERATOR Work Phone: [facility] 08-12-2001 diphtheria, tetanus toxoids and acellular pertussis vaccine [facility] MACHINE ASSEMBLER.ANODIZING LINE OPERATOR Work Phone: [facility] 08-12-2001 haemophilus influenz ae type b conjugate and Hepatitis B vaccine [facility] MACHINE ASSEMBLER.ANODIZING LINE OPERATOR Work Phone: [facility] 08-12-2001 measles, mumps and rubella virus vaccine [facility] MACHINE ASSEMBLER.ANODIZING LINE OPERATOR Work Phone: [facility] 08-12-2001 pneumococcal conjuga te vaccine, [address] [facility] MACHINE ASSEMBLER.ANODIZING LINE OPERATOR Work Phone: [facility] 2000 diphtheria, tetanus toxoids and acellular pertussis vaccine [facility] MACHINE ASSEMBLER.ANODIZING LINE OPERATOR Work Phone: [facility] 2000 haemophilus influenz ae type b conjugate and Hepatitis B vaccine [facility] MACHINE ASSEMBLER.ANODIZING LINE OPERATOR Work Phone: [facility] 2000 pneumococcal conjuga te vaccine, [address] [facility] MACHINE ASSEMBLER.ANODIZING LINE OPERATOR Work Phone: [facility] 2000 poliovirus vaccine, inactivated [facility] MACHINE ASSEMBLER.ANODIZING LINE OPERATOR Work Phone: [facility] 2000 diphtheria, tetanus toxoids and acellular pertussis vaccine [facility] MACHINE ASSEMBLER.ANODIZING LINE OPERATOR Work Phone: [facility] 2000 haemophilus influenz ae type b conjugate and Hepatitis B vaccine [facility] MACHINE ASSEMBLER.ANODIZING LINE OPERATOR Work Phone: [facility] Payers Date Payer Category Payer Medicaid [employer] [id number] 2023 Medicaid [id number] 2022 Self-pay 2000 Unknown [id number] 2000 Unknown [id number] 2000 Unknown [id number] 2000 Unknown [id number] [id number] Unknown [id number] Unknown [id number] [id number] Unknown [id number] [id number] Unknown [id number] [id number] Unknown [id number] [id number] Unknown [id number] [id number] Unknown [id number] [id number] Unknown [id number] [id number] Unknown [id number] [id number] Unknown [id number] [id number] Unknown [id number] [id number] Unknown [id number] [id number] Unknown [id number] Social History Date Type Detail Facility Start: 11-12-2022 End: 09-06-2023 Tobacco smoking status NHIS Unknown if ever smoked [facility] Start: 2000 Sex Assigned At Female [facility] Tobacco smoking status No Smoking Status Entered [facility] Start: 12-17-2024 Tobacco smoking status NHIS Never smoked tobacco [facility] Start: 12-17-2024 Tobacco use and exposure Smokeless tobacco non-user [facility] Start: 12-17-2024 History of Social function [facility] Start: 12-17-2024 Tobacco use panel [facility] Start: 2000 Sex assigned at Not on file [facility] NEGATED: Highlighted row [facility] Functional Status Date Assessment Result Facility 10-13-2023 Functional Status ID band on, Allergy Band on, Call device within reach, Bed in low position, Wheels locked, Upper/Half-Length side-rails up, Phone within reach, Bedside Cart Locked, Visitor at bedside [facility] 08-18-2023 Functional Status Independent [facility] 08-18-2023 Functional Status Standard Safet y ID band on, Allergy Band on, Call device within reach, Bed in low position, Wheels locked, Upper/Half-Length side-rails up, Safety level maintained [facility] Mental Status Date Assessment Result Facility 10-13-2023 Mental Status Oriented x 4 [facility] 08-18-2023 Mental Status Orientation Oriented x 4 [facility] 08-18-2023 Mental Status [facility] 06-25-2023 Cognitive function Level Of Cons ciousness Awake;Alert;Appropriate [facility] Work Phone: 04-18-2023 Cognitive function Voice/Name [facility] Work Phone: Clinical Notes 06-24-2023 to 12-17-2024 Juan Antonio Rodriguez APRN.[facility] - 12/17/2024 6:28 PM EDT Note Date & Type Note Facility 12-17-2024 History of Present illness Narrative Subjective HPI Nontoxic-appearing 24-year-old female presents urgent care chief complaint finger injury. Patient states she was picking up a chair today when a piece of metal broke off in her finger. Was able to remove it with tweezers. Presents today for tetanus update. Unsure of last tetanus. States also did cut her foot 2 weeks ago. That has healed. No other concerns. No numbness no tingling. No decrease sensation. Overall feels well. Past medical history prescription medications allergies reviewed .Patient presents with: Laceration: R hand fourth finger cut on metal chair x30 mins, stepped on metal 2 weeks ago, needs updated TDAP No past medical history on file. No past surgical history on file. ALLERGIES Penicillins MEDICATIONS No prescriptions on file. No family history on file. Social History Tobacco Use Smoking status: Never Smokeless tobacco: Never BP 129/72 Pulse 71 Temp 36.7 C (98.1 F) Resp 18 Wt 110.8 kg (244 lb 4.3 oz) SpO2 99% Review of Systems Constitutional: Negative for chills, fever and malaise/fatigue. Musculoskeletal: Negative for back pain, falls, joint pain, myalgias and neck pain. Neurological: Negative for dizziness, loss of consciousness, weakness and headaches. Objective Physical Exam Constitutional: General: She is not in acute distress. Appearance: She is not toxic-appearing. HENT: Head: Normocephalic. Nose: Nose normal. Eyes: Pupils: Pupils are equal, round, and reactive to light. Cardiovascular: Rate and Rhythm: Normal rate. Pulmonary: Effort: Pulmonary effort is normal. No respiratory distress. Musculoskeletal: Cervical back: Normal range of motion. Skin: General: Skin is warm and dry. Comments: Small wound possibly representing puncture wound noted on fourth digit around PIP joint. No bleeding. No foreign bodies could be visualized or palpated. Neurovascular intact. Neurological: General: No focal deficit present. Mental Status: She is alert. ASSESSMENT/PLAN: 1. Injury of right hand, initial encounter - ICD9: 959.4, ICD10: S69.91XA Diagnosed with right hand injury. Keep wound clean dry and covered. Antibiotic cream 2-3 times a day for 5 days. Tetanus updated. Signs symptoms of infection discussed. Patient was educated on supportive therapies. Patient will follow up with primary care provider as needed. Patient was instructed to immediately proceed to emergency room for any new, worsening, or symptoms lasting longer than anticipated. The patient's clinical presentation is otherwise unremarkable at this time. Based on exam and clinical finding, the patient is stable for discharge. Plan of care was discussed with patient. Patient verbalizes understanding and agrees to plan of care. This note was generated using [employer] software. It may contain errors in wording, punctuation, or spelling. Juan Antonio Rodriguez APRN.ANODIZING LINE OPERATOR History and Record Review Clinical information obtained from an independent historian. History obtained from or confirmed by: parent. documented in this encounter [facility] 05-07-2024 Note [facility] Medical Records Department [address] [place] [id number] History Physical Exam 05/07/24 1248 MR#: [id number] Acct: [id number] Name: NICHOLAS ARCECrescencio VALENZUELA Rep #: [id number] : 2000 24 From: Landon Salazar MD PCP: Care Physician,No Primary Status:[facility] Location: [place] [address] History and Physical Date of Admission: 05/07/24 Date of Service: 05/05/24 MR#: [id number] Acct: [id number] Name: NATASHA ARCE Rep #: [id number] : 2000 Provider: Dr. Landon Salazar MD Age/Sex: 24/F Location: [facility] Status: Signed Intake Vital Signs 05/03/2411:10 05/05/2412:25 Height 5 ft 4 in 5 ft 4 in Weight: 228 lb BMI 39.1 BP 157/108 H Blood Pressure Location Rt brachial Position Sitting Respiration 18 Pulse 74 Pulse Source Monitor Temp 97.8 F Temp Source Temporal Pulse Oximetry (%) 98 Oxygen Delivery Method room air Intake Visit Reasons: DISCUSS GALLBLADDER U/S Chief Complaint: discuss gallbladder u/s Is patient in pain?: Yes (sharp ) Allergies Penicillins (PCN) Allergy (Verified 05/05/24 12:26) Laryngospasms Medications ???Medication ???Instructions ???Recorded ???Confirmed ???Type ondansetron 4 mg disintegrating 4 mg PO Q8H PRN PRN Nausea #10 tabs 04/26/24 05/05/24 Rx tablet PFSH Medical History (Updated 05/05/24 @ 16:[address] Landon Salazar MD) Gallstones Cholecystitis Alpha thalassemia trait G6PD deficiency Iron deficiency anemia due to chronic blood loss Ankle fracture, left Ovarian cyst Splenomegaly Anxiety Surgical History History of wisdom tooth extraction History of Family History Mother Diabetes HypertensionGrandmother Cancer possibly SCLC, mets to brain; maternal Social History Smoking Status: Never smoker alcohol intake: never substance use type: does not use HPI HPI HPI: Patient is a 24-year-old female who is known to me from 2 prior consultations related to concerns around her gallbladder. In fact, she was seen as recently as 05/01/2024 regarding this issue an outpatient ultrasound was arranged, however, she reports that she was overcome with a combination of abdominal pain, nausea, dizziness, and headaches so she decided to present to the emergency department on 05/03/2024. She describes her pain as coming in waves and characterizes it as sharp and shooting into her back (left). She notes that with this pain it seems to be spiking her blood pressure and she recalls taking her blood pressure at home finding her systolic number in excess of 210 mmHg. She states that since this presentation any eating leads to her becoming super nauseous. She states that she took seriously the recommendations to curb some of her dietary choices and has been restricted to baked chicken breast with fruits and vegetables since our consultation visit. She has been using Tylenol and ibuprofen to help with her pain complaints. Patient's ER workup is notable for CBC and CMP that failed to show leukocytosis or left shift as well as any abnormalities of her LFTs. Right upper quadrant ultrasound was obtained with radiology reading multiple gallstones are present there is gallbladder wall thickening measuring up to 5 mm. No discrete pericholecystic fluid. The presence or absence of a sonographic Jackson sign is not annotated. This followed with an impression stating findings perhaps indicative of acute cholecystitis. The presence or absence of a sonographic Jackson sign is not annotated. Correlate clinically. Consider hepatobiliary scan. Upon reevaluation in the emergency department patient's pain symptoms had improved and after discussion with on-call surgery outpatient follow-up was recommended. Below is recapitulated from patient's prior consultation visit for ease review: Patient is a 24-year-old female who is referred following a recent emergency room visit for a more???depth investigation of her gallbladder. She is known to me from a prior visit 03/06/23 which was occasioned by incidental CT finding of cholelithiasis after an ER visit on 03/01/2023. Given that patient's presentation complaint for that initial ER visit was for left upper quadrant discomfort our conversation primarily revolved around her finding of splenomegaly and its connection to her diagnosis of G6PD deficiency. A referral was made to oncology and patient states that she has followed with them but has confirmed that there is no indication for surgical splenectomy. (more content not included)... [facility] 10-14-2023 Hospital Discharge instructions Patient Education 10/13/2023 22:19:30 Viral Syndrome [...] the smoke from others. You may use slje-vbz-dxmoqwq acetaminophen or ibuprofen for fever, muscle aching, [...] body and be dangerous to your health. Bqft-qnx-ozpuier remedies won't shorten the length of the [...] or as directed by your healthcare provider [phone] [employer]. [address] [place] [address], [place] [address]. All rights reserved. This information is not intended as a substitute for professional medical care. Always follow your healthcare professional's instructions. Follow Up Care 10/13/2023 22:00:31 With:Follow up with primary care provider Address:Unknown When:2-4 days [facility] 10-13-2023 Note Discharge Instructions Thank you for allowing [facility] to assist you with your healthcare needs. [...] the smoke from others. You may use ombe-glg-znsnezg acetaminophen or ibuprofen for fever, muscle aching, [...] body and be dangerous to your health. Yhpv-nrg-fsuuosb remedies won't shorten the length of the [...] or as directed by your healthcare provider [phone] [employer]. [address] [place] [address], [place] [address]. All rights reserved. This information is not intended as a substitute for professional medical care. Always follow your healthcare professional's instructions. Additional Information VACCINATE! IT SAVES LIVES! Members of the community who have not yet received the COVID-19 vaccine and would like to receive it can visit one of [facility] vaccine clinics. There are many vaccine clinic locations within the [facility]. For locations and available times, please visit [email or web address] [email or web address] It is important to note that some COVID mobile vaccine clinics are held outdoors and may be canceled in rainy or stormy conditions. To learn more about pediatric vaccinations (ages 5-11), we invite you to visit the [facility] webpage. https://www.FluxDrives.org/p ages/8625-Kyygx-Abmbowwhbyp-Freq dzdrcz-Uzsho-Qotvytsum.html To learn more about the COVID-19 vaccine, we invite you to visit the CDC website for a list of frequently asked questions. https://www.cdc.gov/coronavirus/ 2019-ncov/vaccines/faq.html [facility] Patient Portal Access Instructions: Stay connected with your healthcare team and access your personal medical information anytime with the [facility] Patient Portal. If you would like a full copy of your medical records please contact the [facility] Medical Records Department Saturday through Saturday between 8a.m. and 4:30p.m. Please follow the directions below to access the portal: 1.Access the email account you provided upon registration to the hospital.2.Look for an invitation email from [facility].3.Open the email and access the invitation link: Accept Invitation to [facility]4.Fill in the required bosch to create your account. Sign into [email or web address] with your username and password that you [...] you will allow to register on the [facility] Patient Portal for access to your information. You can also access the [employer] [facility] [facility] Patient Portal on the [employer] marco antonio. Simply click on Health Records under Health Data and then click on the [employer] logo. HOW TO SAFELY DISPOSE OF PRESCRIPTION [...] Call your local pharmacy or go to http://InEdge.[email or web address]/[email or web address] to find one close to you.3.Make use of household items: Use cat litter or old coffee grounds to dispose medications if other options are not available. Mix your drugs with these household products, seal them in an airtight container and throw it into the garbage. Call [facility]: [phone] to be sure your drugs can be [...] reviewed and explained to me and I,NATASHA ARCE understand my current condition and have read and understand these discharge instructions. I have received a written copy of the plan/instructions. If I have questions, I am aware that I should contact my doctor. Patient/Senior Caregiver Signature: Date/Time: Relationship to Patient: Witness Name/Signature: Date/Time: [facility] 09-06-2023 Hospital Discharge instructions Additional Instructions Apply the ointment twice a day for 5 to 7 days. You can alternate Tylenol and ibuprofen for pain as needed. [facility] Work Phone: 08-18-2023 Hospital Discharge instructions Patient Education 08/18/2023 21:17:20 Abdominal Pain, [...] or water and you are getting dehydrated [phone] [employer]. [address] [place] [address], [place] [address]. All rights reserved. This information is not intended as a substitute for professional medical care. Always follow your healthcare professional's instructions. Follow Up Care 08/18/2023 19:33:03 With:TRINO OVERTON MD Address: [facility] [address] [facility] [address] [place] [address]- [phone] When:2-4 days [facility] 08-18-2023 Note Discharge Instructions Thank you for allowing [facility] to assist you with your healthcare needs. The following is important discharge information regarding your hospital visit. Diagnosis from Today's Visit Abdominal pain Flank pain What to Do Next Instructions from Your Care Team No qualifying data available. Post Acute Orders No qualifying data available. You Need to Schedule the Following Appointments Follow Up with TRINO OVERTON MD When Within 2-4 days Where: [address] [facility] [address] [place] [address] [phone] Allergies penicillin Medications Please ask your primary [...] or water and you are getting dehydrated [phone] [employer]. [address] [place] [address]. All rights reserved. This information is not intended as a substitute for professional medical care. Always follow your healthcare professional's instructions. Additional Information VACCINATE! IT SAVES LIVES! Members of the community who have not yet received the COVID-19 vaccine and would like to receive it can visit one of [facility] vaccine clinics. There are many vaccine clinic locations within the [facility]. For locations and available times, please visit [email or web address] gov/. It is important to note that some COVID mobile vaccine clinics are held outdoors and may be canceled in rainy or stormy conditions. To learn more about pediatric vaccinations (ages 5-11), we invite you to visit the [facility] webpage. https://www.[facility].org/p ages/9016-Vwmzo-Hqmqnljgcgu-Freq murawx-Vwjkj-Oyuytywkm.html To learn more about the COVID-19 vaccine, we invite you to visit the CDC website for a list of frequently asked questions. https://www.cdc.gov/coronavirus/ 2019-ncov/vaccines/faq.html [facility] Patient Portal Access Instructions: Stay connected with your healthcare team and access your personal medical information anytime with the [facility] Patient Portal. If you would like a full copy of your medical records please contact the [facility] Medical Records Department Saturday through Saturday between 8a.m. and 4:30p.m. Please follow the directions below to access the portal: 1.Access the email account you provided upon registration to the [facility].2.Look for an invitation email from [facility].3.Open the email and access the invitation link: Accept Invitation to [facility]ella4.Fill in the required bosch to create your account. Sign into [email or web address] to u with your username and password that you [...] you will allow to register on the [facility] Patient Portal for access to your information. You can also access the [facility] Patient Portal on the [employer]. Simply click on Health Records under Health Data and then click on the [employer] logo. HOW TO SAFELY DISPOSE OF PRESCRIPTION [...] Call your local pharmacy or go to http://InEdge.[place]/5E9As4b to find one close to you.3.Make use of household items: Use cat litter or old coffee grounds to dispose medications if other options are not available. Mix your drugs with these household products, seal them in an airtight container and throw it into the garbage. Call [facility]: [phone] to be sure your drugs can be [...] reviewed and explained to me and I,NATASHA ARCE understand my current condition and have read and understand these discharge instructions. I have received a written copy of the plan/instructions. If I have questions, I am aware that I should contact my doctor. Patient/Senior Caregiver Signature: Date/Time: Relationship to Patient: Witness Name/Signature: Date/Time: [facility] 08-18-2023 Note Discharge Instructions Thank you for allowing [facility] to assist you with your healthcare needs. The following is important discharge information regarding your hospital visit. Diagnosis from Today's Visit Abdominal pain Flank pain What to Do Next Instructions from Your Care Team No qualifying data available. Post Acute Orders No qualifying data available. You Need to Schedule the Following Appointments Follow Up with TRINO OVERTON MD When Within 2-4 days Where: [address] [place] [address]- [phone] Allergies penicillin Medications Please ask your primary [...] or water and you are getting dehydrated [phone] [employer]. [address] [place] [address], [place] [address]. All rights reserved. This information is not intended as a substitute for professional medical care. Always follow your healthcare professional's instructions. Additional Information VACCINATE! IT SAVES LIVES! Members of the community who have not yet received the COVID-19 vaccine and would like to receive it can visit one of [facility] vaccine clinics. There are many vaccine clinic locations within the [facility]. For locations and available times, please visit [email or web address] gov/. It is important to note that some COVID mobile vaccine clinics are held outdoors and may be canceled in rainy or stormy conditions. To learn more about pediatric vaccinations (ages 5-11), we invite you to visit the [facility] webpage. https://www.akronVersartiss.org/p ages/1825-Shprl-Vkkrkcqkfsm-Freq ooghqr-Hbckv-Vqdlwezag.html To learn more about the COVID-19 vaccine, we invite you to visit the CDC website for a list of frequently asked questions. https://www.cdc.gov/coronavirus/ 2019-ncov/vaccines/faq.html [facility] Patient Portal Access Instructions: Stay connected with your healthcare team and access your personal medical information anytime with the [facility] Patient Portal. If you would like a full copy of your medical records please contact the [facility] Medical Records Department Saturday through Saturday between 8a.m. and 4:30p.m. Please follow the directions below to access the portal: 1.Access the email account you provided upon registration to the hospital.2.Look for an invitation email from [facility].3.Open the email and access the invitation link: Accept Invitation to M[facility]Bella4.Fill in the required bosch to create your account. Sign into [email or web address] with your username and password that you [...] you will allow to register on the [facility] Patient Portal for access to your information. You can also access the [facility] Patient Portal on the [employer]. Simply click on Health Records under Health [...] Call your local pharmacy or go to http://InEdge.[email or web address]/[email or web address] to find one close to you.3.Make use of household items: Use cat litter or old coffee grounds to dispose medications if other options are not available. Mix your drugs with these household products, seal them in an airtight container and throw it into the garbage. Call [facility]: [phone] to be sure your drugs can be [...] aware that I should contact my doctor. Patient/Senior Caregiver Signature: Date/Time: Relationship to Patient: Witness Name/Signature: Date/Time: [facility] 08-18-2023 Note ORIGINAL EXAMINATION: CT OF THE [...] Date: 08/18/2023 9:09:18 PM [facility] Discharge summary Note Date/Time June 24, 2023 11:59pm [facility] Medical Records Department [address] [place] [address] Emergency Department Summary 06/24/23 MR#: [id number] Acct: [id number] Name: NATASHA ARCE Rep #:[id number] : 2000 23 From: Mark Lutz MD PCP: Care Physician,No Primary Status :PRE ER Location: ED HPI HPI - URI History of Present Illness Chief Complaint: Cold Sx Informant: patient Onset/Context/Timing Onset: Days Context: Gradual Onset Timing: Continuous Current Severity: Mild Maximum Severity: Mild Associated Symptoms Associated Symptoms: Positive for Nasal Congestion Narrative Narrative: 23-year-old female history of asthma and anemia. Younger sister has URI symptoms she is developing same. No vomiting or diarrhea. No fever. Not shortof breath. Also states she is having more anxiety. Not suicidal. Prior similar symptoms: Yes Recent Illness/Hospitalization: No ROS ROS ED ROS Narrative URI symptoms. Review of Systems ROS Unobtainable: Denies due to encephalopathy Constitutional Constitutional ED: Denies chills or fever(s) Eyes Eyes: Denies blurry vision ENT ENT ED: Denies ear pain Cardiovascular Cardiovascular: Denies chest pain Respiratory/Chest Respiratory/Chest: Reports cough; Denies dyspnea Gastrointestinal Gastrointestinal: Denies abdominal pain, constipation, diarrhea, melena, nausea or vomiting Genitourinary Genitourinary ED: Denies dysuria or hematuria Musculoskeletal Musculoskeletal: Denies arthralgias Integumentary Denies abscess, Abrasions or rash Neurologic Neurologic: Denies headache(s) Psychiatric Psychiatric: Reports anxiety; Denies depression Endocrine Endocrinology: Denies cold intolerance Hematologic/Lymphatic Hematologic/Lymphatic: Denies easy bleeding Allergic/Immunologic Allergic/Immunologic ED: Denies mouth swelling PFSH PFSH Medical History Alpha thalassemia trait Ankle fracture, left Anxiety G6PD deficiency Iron deficiency anemia due to chronic blood loss Ovarian cyst Splenomegaly Home Medications hydroxyzine HCl 25 mg tablet 25 mg PO TID PRN anxiety #30 tabs 11/12/22 [Rx Last Taken Unknown] desvenlafaxine succinate 50 mg tablet,extended release 24 hr (Pristiq) 50 mg PO DAILY 03/18/23 [History Last Taken Unknown] lamotrigine 25 mg tablet 25 mg PO DAILY 03/28/23 [History Last Taken Unknown] Allergy/AdvReac Type Severity Reaction Status Date / Time Penicillins [PCN] Allergy Laryngospas Verified 06/24/23 23:09 ms Family History Mother Diabetes Hypertension Grandmother Cancer possibly SCLC, mets to brain; maternal Surgical History History of History of wisdom tooth extraction Social History Smoking Status: Never smoker alcohol intake: never substance use type: does not use EXAM Physical Exam Narrative Exam Narrative: Well-appearing 23-year-old female. Vital signs stable afebrile. Pulse ox 98% on room air. No distress. H EENT exam unremarkable. TMs normal. Posterior pharynx normal. Moist mucous membranes. Neck nontender no lymphadenopathy. No JVD. Lungs clear to auscultation bilaterally. Heart regular rhythm no murmur. Abdomen soft nontender. Moving all 4 extremities. Calves are nontender without edema or cords. Neurologically she is awake and alert with no focal motor deficits. Very benign exam. Const Vital Signs: 06/24/23 23:07 Temperature 97.5 F L Temperature Source Temporal Pulse Rate 86 Respiratory Rate 16 Blood Pressure 150/107 H Blood Pressure Mean 121 Pulse Ox 98 Oxygen Delivery Method Room Air Positive well nourished and well developed; Negative for cachectic or contractures General Appearance ED: well developed and NAD; Negative for cachectic, contractures, cyanotic, diaphoretic or pallor Nutritional Appearance: Negative for cachectic HEENT Reports moist mucous membranes normocephalic and atraumatic Face and Sinus: Negative for sinus tenderness Teeth and Gingiva: Negative for caries Throat: posterior oropharynx normal Eyes PERRL and EOMs intact bilaterally General Eye ED: Negative for pale conjunctiva or scleral icterus Neck no lymphadenopathy, supple, no meningeal signs and no JVD General: Negative for anterior neck swelling or lymphadenopathy Resp normal respiratory effort and clear to auscultation bilaterally Effort and Inspection: Negative for retractions Auscultation: Negative for rales, rhonchi or wheezes Cardio S1 normal heart sound, S2 normal heart sound and no murmurs Rate: regular rate Rhythm: regular rhythm GI non-tender, non-distended and no masses Inspection: Negative for abdominal distention Auscultation: normoactive bowel sounds Palpation: soft; Negative for tender or guarding Back/Spine no CVA tenderness and normal ROM General Back: Negative for CVA tenderness Cervical Spine: Negative for cervical spine tenderness Thoracic Spine / Upper Back: Negative for thoracic spinal tenderness Lumbar Spine / Lower Back: Negative for lumbar spinal tenderness Sacrum: Negative for tenderness Extremity normal to inspection and full ROM General Extremety ED: Negative for cyanosis, tenderness or other findings General Extremity: Negative for cyanosis or other findings Neuro oriented x3 and CN's II-XII intact bilaterally Sensorium / Orientation: alert, oriented to person, oriented to place and oriented to time; Negative for orientation impaired or lethargic Motor Exam: strength 5/5 throughout Psych mental status grossly normal Appearance: Negative for other Attitude: No agitated Mood & Affect: Negative for depressed, anxious or tearful Skin General Skin Exam: Negative for jaundice or pallor Lesions: no lesions Rashes: no rashes Trauma: Negative for abrasion or laceration MDM MDM MDM Narrative Medical decision making narrative: 23-year-old with URI symptoms. Exam is benign. Suspect viral illness. She is already on anxiety meds. She has a follow-up appointment the end of this week with her primary care physician which they can discuss if she needs additional medication. She is comfortable being discharged home. History & Record Review Discussion w/independent historian: Patient Discharge Plan Triage Chief Complaint: Cold Sx ED Provider: Mark Lutz Dx/Rx/DC Orders Clinical Impression: Anxiety, Viral URI Instructions: ED URI, Viral, No Abx (Adult) Prescriptions: No Action desvenlafaxine succinate [Pristiq] 50 mg tablet extended release 24 hr 50 mg PO DAILY lamotrigine 25 mg tablet 25 mg PO DAILY hydroxyzine HCl 25 mg tablet 25 mg PO TID PRN (Reason: anxiety) Qty: 30 0RF Primary Care Provider: Care Physician,No Primary Referrals: Care Physician,No Primary [Primary Care Provider] - Activity Restrictions/Additional Instructions: Plenty of fluids and rest. Tylenol and ibuprofen for body aches. Follow-up with your doctor. Continue your anxiety meds. Disposition Disposition: Home, Self Care What to do if you have Problems For any increased pain, shortness of breath, bleeding, nausea or vomiting, chestpain, or any unexpected problems, contact your Primary Care Provider. Call [facility] ([phone]) or report to the closest Emergency Room. Call 911 if necessary. 06/24/23 2927 <Electronically signed by Mark Lutz MD> Cosigner Signature (if applicable): CC: No Primary Care Physician ~ Signed [facility] Work Phone: Discharge summary Author Giacomo Kwon [facility] March 01, 2023 7:04am Note Date/Time March 01, 2023 5:17am [facility] Medical Records Department [address] [place] [address] Emergency Department Summary 03/01/23 MR#: [id number] Acct: [id number] Name: NATASHA ARCE Rep #:[id number] : 2000 23 From: Giacomo Kwon MD PCP: Care Physician,No Primary Status :REG ER Location: ED HPI HPI - GI History of Present Illness Chief Complaint: Abd Pain Informant: patient and EMS Abdominal Pain/Flank Pain Onset: Hours (A couple) Context: Sudden Onset (Woke her up from sleep) Timing: Continuous and Waxes and wanes Quality: Aching Location: Left Flank Current Severity: Severe Maximum Severity: Severe Nausea/Vomiting/Emesis GI Symptom: Positive for Nausea; Negative for Vomiting Diarrhea/Melena/Hematochezia GI Symptom: Negative for Diarrhea, Melena or Hematochezia Associated Symptoms Associated Symptoms: Negative for Dysuria, Frequency, Hematuria or Urgency Narrative Narrative: Woke up with this colicky left-sided abdominal/flank pain that she has never hadbefore. Nausea, no urinary symptoms or problems with bowel movements recently. No pain in her back. No recent . [facility] Medical History (Updated 03/01/23 @ 06:[address] Giacomo Kwon MD) Anxiety Home Medications hydroxyzine HCl 25 mg tablet 25 mg PO TID PRN anxiety #30 tabs 11/12/22 [Rx Last Taken Unknown] Allergy/AdvReac Type Severity Reaction Status Date / Time Penicillins [PCN] Allergy Laryngospas Verified 03/01/23 05:12 ms Surgical History (Updated 03/01/23 @ 05:[address] Giacomo Kwon MD) History of Social History Smoking Status: Never smoker ROS ROS ED Constitutional Constitutional ED: Denies chills or fever(s) Eyes Eyes: Denies change in vision or diplopia ENT ENT ED: Denies rhinorrhea or sore throat Cardiovascular Cardiovascular: Denies chest pain or palpitations Respiratory/Chest Respiratory/Chest: Denies cough or dyspnea Gastrointestinal Gastrointestinal: Reports abdominal pain and nausea; Denies diarrhea or vomiting Genitourinary Genitourinary ED: Denies dysuria or hematuria Musculoskeletal Musculoskeletal: Denies back pain or neck pain Integumentary Denies abscess or rash Neurologic Neurologic: Denies headache(s), paresthesias or weakness Psychiatric Psychiatric: Denies anxiety or suicidal thoughts EXAM Physical Exam Const Vital Signs: 03/01/23 05:10 Temperature 97.4 F L Temperature Source Temporal Pulse Rate 95 Respiratory Rate 18 Blood Pressure 142/88 H Blood Pressure Mean 106 Pulse Ox 100 Oxygen Delivery Method Room Air Positive well nourished and well developed General Appearance ED: well developed and NAD HEENT Reports moist mucous membranes normocephalic and atraumatic Eyes PERRL and EOMs intact bilaterally Neck full ROM and supple Resp normal respiratory effort and clear to auscultation bilaterally Cardio regular rate, regular rhythm and no murmurs GI non-tender and non-distended Auscultation: normoactive bowel sounds Palpation: soft Back/Spine no CVA tenderness General Back: other FROM Extremity normal to inspection General Extremety ED: Negative for edema, pulses abnormal or tenderness General Extremity: Negative for edema or pulses abnormal Neuro oriented x3, CN's II-XII intact bilaterally and no sensory deficits noted Sensorium / Orientation: awake and alert Motor Exam: strength 5/5 throughout Skin no rashes or lesions noted and no wounds MDM MDM MDM Narrative Medical decision making narrative: Patient's symptoms are compatible with ureterolithiasis and renal colic, since she has never had this before we sent her for CT, I reviewed the images and report which I agree with, it does not reveal signs of an obstructive uropathy or kidney stone. Rather shows signs of mesenteric adenitis without signs of a separate acute process. Also noted is cholelithiasis. Patient is not tender in this area of her abdomen. Her urinalysis is negative showing no signs of infection or blood. confirmed to be negative. She was given Toradol while we were waiting for these test to return, but she states that it did not help her pain, and now it switch to the other side and is on both sides. This makes functional GI/intestinal pain more likely, so she was given Mylanta advanced and dicyclomine. She felt much better after this. CT results show mesenteric adenopathy, there is some evidence of cholelithiasis but she is not having any pain or tenderness at her gallbladder. No signs of any other acute process on the CT. I reviewed the images and report I agree with it. Given all of this, she is stable for discharge home supportive care is advised. I do not think we need to get labs for this, she is comfortable with that plan Lab Data Attestation: I reviewed the patient's lab results. Labs: Laboratory Results - last 24 hr 03/01/23 05:22 Serum , Qual NEGATIVE Urine Color Yellow Urine Clarity Clear Urine pH 7.0 Ur Specific [place] 1.010 Urine Protein Negative Urine Glucose (UA) Normal Urine Ketones Negative Urine Occult Blood Negative Urine Nitrite Negative Urine Bilirubin Negative Urine Urobilinogen Normal Ur Leukocyte Esterase Negative Urine RBC 0 SEEN Urine WBC 0 SEEN Ur Squamous Epith Cells 0-5 SEEN Urine Bacteria 1+ Urine Mucus 0 SEEN Radiography Diagnostic Testing: Clinical Impression(s) from Imaging Studies Abdomen/Pelvis CT 03/01/23 05:15 IMPRESSION: No urolithiasis or hydronephrosis. Splenomegaly. Mesenteric adenopathy nonspecific. Cholelithiasis. Electronically Signed: Sultana Albarado MD at 6:15 EDT , Discharge Plan Triage Chief Complaint: Abd Pain ED Provider: Giacomo Kwon Dx/Rx/DC Orders Clinical Impression: Mesenteric lymphadenopathy, Cholelithiasis Instructions: What Are Gallstones, ED Adenitis, Mesenteric Prescriptions: No Action hydroxyzine HCl 25 mg tablet 25 mg PO TID PRN (Reason: anxiety) Qty: 30 0RF Primary Care Provider: Care Physician,No Primary Referrals: Doctor,Your [Non-Staff] - 1 Week if not improving Disposition Disposition: Home, Self Care What to do if you have Problems For any increased pain, shortness of breath, bleeding, nausea or vomiting, chestpain, or any unexpected problems, contact your Primary Care Provider. Call [facility] ([phone]) or report to the closest Emergency Room. Call 911 if necessary. 03/01/23 0659 <Electronically signed by Giacomo Kwon MD> Cosigner Signature (if applicable): CC: No Primary Care Physician ~ Signed ADDENDUM by Dr. Giacomo Kwon MD on 03/01/23 at 0703 After speaking with the patient again, she states when the pain changed it seemed more band-like around her abdomen. So I reexamined her, it is very mildly tender in the right upper quadrant epigastrium negative Jackson's, she feels a lot better and is doing well with normal vital signs, but I am referringher to surgery as an outpatient, it certainly could have been biliary colic thatjia was experiencing as a result of gallstones. I do not think she needs further emergent work-up right now such as an ultrasound or lab work, and otherwise we discussed foods to avoid and reasons to return to the ER she is comfortable with that plan. Additional impression: Biliary colic 03/01/23 0703<Electronically signed by Giacomo Kwon MD> Cosigner Signature (if applicable): cc: No Primary Care Physician ~* Signed [facility] Work Phone: Evaluation + Plan note No data available for this section [facility] Evaluation noteNo assessment information available [facility] Work Phone: Evaluation note* Diagnosis Onset Date Resolution Status Splenomegaly chronic Splenomegaly chronic Splenomegaly chronic [facility] Work Phone: Evaluation note* Diagnosis Injury of right hand, initial encounter- Primary documented in this encounter [facility] Discharge instructions Additional Instructions Thank you for trusting us with your care today! Please take Atarax (hydroxyzine) as prescribed as needed for anxiety. Please return if you develop suicidal ideation, homicidal ideation, auditory or visual hallucinations. Please return to the emergency department if your symptoms change or worsen. Please follow with your primary care physician for further outpatient evaluation and management.[facility] Work Phone: Hospital Discharge instructions Additional Instructions Plenty of fluids and rest. Tylenol and ibuprofen for body aches. Follow-up with your doctor. Continue your anxiety meds.[facility] Work Phone: Chief Complaint and Reason for Visit Chief Complaint ANXIETY Chief Complaint ANXIETY Abd and Back Pain Chief Complaint Abd and Back Pain GALLBLADDER ER 03/01 NEW-SPLENOMEGALY REVIEW LABS MED ONC COLD Reason for Visit Splenomegaly Splenomegaly Splenomegaly Chief Complaint COLD hand Advance Directives Advance Directive Response Recorded Date/ Time Living Will No November 12, 2022 2 :41pm Power of Metal [employer]ing [employer] Operator No November 12, 2022 2:41pm Advance Directive Response Recorded Date/ Time Living Will No March 01, 2 023 5:10am Power of Metal [employer]ing [employer] Operator No March 01, 2023 5:10am Advance Directive Response Recorded Date/ Time Living Will No June 24, 2 023 11:59pm Power of Metal [employer]ing [employer] Operator No June 24, 2023 11:59pm Advance Directive Response Recorded Date/ Time Living Will No September 06, 2023 9:28pm Power of Metal [employer]ing [employer] Operator No September 05 9:28pm Family History Relationship Condition Age at Onset Recorded Date/T meme mother Diabetes mellitus Unknown Hypertension Unknown grandmother Malignant neoplasm Unknown Summary Purpose Additional Source Comments Care Teams (unrecognized sec tion and content) Team Status: Active Member Role Status Dates No Primary Care Physician Primary Care Provider Active Team Status: Inactive Member Role Status Dates Dr. Gibson Dallas DO Emergency Provider Active No Primary Care Physician Primary Care Provider Active Team Status: Inactive Member Role Status Dates Dr. Gibson Dallas DO Attending Provider, Emergency P mary alice Active No Primary Care Physician Primary Care Provider Active Team Status: Inactive Member Role Status Dates No Primary Care Physician Primary Care Provider Active Dr. Giacomo Kwon MD Emergency Provider Active Team Status: Inactive Member Role Status Dates No Primary Care Physician Primary Care Provider, Refer ring Provider Active Dr. Landon Salazar MD Attending Provider Active Team Status: Inactive Member Role Status Dates No Primary Care Physician Primary Care Provider Active Dr. Michelle Kowalski MD Attending Provider Active Dr. Landon Salazar MD Referring Provider Active Team Status: Inactive Member Role Status Dates No Primary Care Physician Primary Care Provider, Refer ring Provider Active Dr. Michelle Kowalski MD Attending Provider Active Team Status: Inactive Member Role Status Dates No Primary Care Physician Primary Care Provider Active Dr. Giacomo Kwon MD Attending Provider, Emergency Provider Active Team Status: Active Member Role Status Dates No Primary Care Physician Primary Care Provider Active Dr. Michelle Kowalski MD Attending Provider, Referrin g Provider Active Team Status: Inactive Member Role Status Dates No Primary Care Physician Primary Care Provider Active Dr. Mark Lutz MD Emergency Provider Active Team Status: Active Member Role Status Dates Ignacio ASTUDILLOC, SCOW DERRICK OPERATOR-C Primary Care Provider Active Team Status: Inactive Member Role Status Dates No Primary Care Physician Primary Care Provider Active Dr. Mark Lutz MD Attending Provider, Emergency Pro vider Active Team Status: Inactive Member Role Status Dates Dr. Becca Gandara DO Emergency Provider Active Ignacio Gomez VSBrice, SCOW DERRICK OPERATOR-C Primary Care Provider Active Goals (unrecognized section and content) Goals may be documented in a n alternate sectionGoals may be documented in an alternate sectionGoals may be documented in an alternate section No data available for this sectionGoals may be documented in an alternate section No data available for this section INFORMATION SOURCE (unrecogn ized section and content) DATE CREATED AUTHOR 10/24/2023 [facility] ([place]) DATE CREATED AUTHOR AUTHOR'S ORGANIZ ATION 11/04/2024 [facility] Source Comments (unrecognize d section and content) In the event this informatio n is protected by the Federal Confidentiality of Alcohol and Drug Abuse Patient Records regulations: The Federal rules restrict any use of the information to criminally investigate or prosecute any alcohol or drug abuse patient.[facility] Reason for Visit (unrecogniz ed section and content) Reason Comments Laceration R hand fourth finger cut on metal chair x30 mins, stepped on metal 2 weeks ago, needs updated TDAP FOR RECORDS PERTAINING TO PATIENTS WHO ARE [...] ON THE PRIMARY CLINICAL RECORDS. [facility] [employer] [facility]. provides no warranty or guarantee of the accuracy or completeness of information in this document.
--- NOTE | 2024-12-20 20:26 | EDS_ITS ---
HPI <RUTH Abel - Last Filed: 12/20/24 21:53> History of Present Illness Chief Complaint: General Illness Narrative Narrative: Patient presenting today with a headache and chest pain. She reports that over the past month she has had intermittent chest pains, she will occasionally have midsternal pain, today her pain was located below her left breast. She describes the pain as a dull ache/pressure sensation. Nothing seems to make her pain better or worse. She had pain this evening that started around 7 PM and subsided within about 20 minutes. Her pain is not exertional. She denies any history of blood clots or recent surgery/travel/immobilization/oral contraceptive use. She denies any personal or significant family cardiac history. She additionally reports having a headache daily over the past month. It has been located to the front of her head and occasionally behind her right eye. She reports occasionally seeing spots in her vision as well as having associated nausea. She states that her sister from a brain aneurysm. She denies fevers, chills, and neck pain. <Dr. Andrés Yates DO - Last Filed: 12/20/24 23:44> Narrative Narrative: Discussed PFS <RUTH Abel - Last Filed: 12/20/24 21:53> [facility] Medical History Wears glasses Marijuana use Anemia Asthma Non-smoker Bradycardia Hypertension Gallstones Cholecystitis Alpha thalassemia trait G6PD deficiency Iron deficiency anemia due to chronic blood loss Ankle fracture, left Ovarian cyst Splenomegaly Anxiety Home Medications ?Medication ?Instructions ?Recorded ?Last Taken ?Type NK 10/30/24 Unknown History Allergy/AdvReac Type Severity Reaction Status Date / Time Penicillins (PCN) Allergy Laryngospas Verified 12/20/24 18:46 ms Family History Mother Diabetes Hypertension Grandmother Cancer possibly SCLC, mets to brain; maternal Surgical History History of wisdom tooth extraction History of Social History housing: house Smoking Status: Never smoker alcohol intake: never substance use type: does not use ROS <RUTH Abel - Last Filed: 12/20/24 21:53> ROS ED Constitutional Constitutional ED: Denies chills or fever(s) Eyes Eyes: Denies blurry vision Cardiovascular Cardiovascular: Reports chest pain; Denies palpitations Respiratory/Chest Respiratory/Chest: Denies dyspnea Gastrointestinal Gastrointestinal: Reports nausea; Denies abdominal pain or vomiting Musculoskeletal Musculoskeletal: Denies arthralgias or myalgias Integumentary Denies rash Neurologic Neurologic: Reports headache(s); Denies paresthesias or weakness EXAM <RUTH Abel - Last Filed: 12/20/24 21:53> Physical Exam Const Vital Signs: 12/20/24 18:46 12/20/24 19:12 12/20/24 20:46 Temperature 98.4 F Temperature Source Oral Pulse Rate 98 70 Respiratory Rate 16 15 Respiratory Effort Normal Non-Labored Respiratory Pattern Normal Blood Pressure 164/86 H 129/81 H Blood Pressure Mean 112 97 Pulse Ox 99 98 Oxygen Delivery Method Room Air 12/20/24 21:56 Temperature 98 F Temperature Source Pulse Rate 70 Respiratory Rate 15 Respiratory Effort Respiratory Pattern Blood Pressure 129/81 H Blood Pressure Mean 97 Pulse Ox 98 Oxygen Delivery Method Positive well nourished, well developed and no apparent distress General Appearance ED: well developed HEENT Reports normocephalic and head/scalp atraumatic Mouth ED: Yes moist mucous membranes normal Eyes PERRL and EOMs intact bilaterally Neck full ROM and supple Neck Narrative: No meningeal signs Chest Wall inspection of chest normal Chest Narrative: Midsternal chest tenderness to palpation. No overlying rash. Resp normal respiratory effort and clear to auscultation bilaterally Cardio regular rate and regular rhythm GI soft to palpation, non-tender, non-distended and no masses Back/Spine normal ROM and normal to inspection Extremity normal to inspection and full ROM Neuro oriented x3, CN's II-XII intact bilaterally, moves all extremities, no focal motor deficits and no sensory deficits noted Sensorium / Orientation: awake and alert Psych mental status grossly normal and thought process normal Skin no rashes or lesions noted and no wounds <Dr. Andrés Yates DO - Last Filed: 12/20/24 23:44> Physical Exam Const Vital Signs: 12/20/24 18:46 12/20/24 19:12 12/20/24 20:46 Temperature 98.4 F Temperature Source Oral Pulse Rate 98 70 Respiratory Rate 16 15 Respiratory Effort Normal Non-Labored Respiratory Pattern Normal Blood Pressure 164/86 H 129/81 H Blood Pressure Mean 112 97 Pulse Ox 99 98 Oxygen Delivery Method Room Air 12/20/24 21:56 Temperature 98 F Temperature Source Pulse Rate 70 Respiratory Rate 15 Respiratory Effort Respiratory Pattern Blood Pressure 129/81 H Blood Pressure Mean 97 Pulse Ox 98 Oxygen Delivery Method [facility] <RUTH Abel - Last Filed: 12/20/24 21:53> [facility] Narrative Medical decision making narrative: Patient presenting today due to chest pain and a headache that has been over the past month. Her chest pains have been intermittent, she was having pain around 7 PM this evening that has now subsided. She is PERC negative, low suspicion for PE. She has had a headache daily over the past month off and on. Her sister from a brain aneurysm which concerns her. Cardiac workup obtained, CBC reveals a hemoglobin of 10.8, this is decreased compared to her previous labs, she does have a history of iron deficiency anemia. I recommended she have this closely monitored by her PCP. BMP is unremarkable. Nonsignificant delta troponin. CTA of the head negative for any acute findings, chest x-ray negative for cardiopulmonary abnormality. Given her negative cardiac workup low suspicion that her chest pain is cardiac in nature. She was given Tylenol and Toradol here for her headache. I have referred her to neurology and a PCP. Recommend she have close outpatient follow-up and she will be discharged home in stable condition. Lab Data Attestation: I reviewed the patient's lab results. Labs: Laboratory Results - last 24 hr 12/20/24 12/20/24 19:37 21:28 WBC 6.9 RBC 4.80 Hgb 10.8 L Hct 35.3 L MCV 73.5 L MCH 22.5 L MCHC 30.6 L RDW Std Deviation 39.6 RDW Coeff of Richard 14.8 H Plt Count 305 MPV 11.9 Immature Gran % (Auto) 0.100 Neut % (Auto) 53.9 Lymph % (Auto) 32.8 [place] % (Auto) 8.4 Eos % (Auto) 4.2 Baso % (Auto) 0.6 Absolute Neuts (auto) 3.7 Absolute Lymphs (auto) 2.27 Nucleated RBC % 0 Sodium 140 Potassium 3.9 Chloride 106 Carbon Dioxide 24.3 Anion Gap 10 BUN 7 Creatinine 0.61 L Estim Creat Clear Calc 174.29 Est GFR (MDRD) Non-Af 128 BUN/Creatinine Ratio 11.7 Glucose 93 Calcium 8.8 Troponin T High Sens < 6 Troponin T Hi Sens 2 Hr < 6 Radiography X-Ray: Read by ED Physician Diagnostic Testing: Clinical Impression(s) from Imaging Studies Head CTA 12/20/24 19:22 IMPRESSION: Study within normal limits Reading Location: [facility] Chest X-Ray 12/20/24 20:05 IMPRESSION: No focal consolidations. Reading Location: [facility] EKG Initial EKG: Comments: 62 bpm, normal sinus rhythm with no ST elevation, interpreted by attending ED physician <Dr. Andrés Yates, DO - Last Filed: 12/20/24 23:44> [facility] Lab Data Labs: Laboratory Results - last 24 hr 12/20/24 12/20/24 19:37 21:28 WBC 6.9 RBC 4.80 Hgb 10.8 L Hct 35.3 L MCV 73.5 L MCH 22.5 L MCHC 30.6 L RDW Std Deviation 39.6 RDW Coeff of Richard 14.8 H Plt Count 305 MPV 11.9 Immature Gran % (Auto) 0.100 Neut % (Auto) 53.9 Lymph % (Auto) 32.8 [place] % (Auto) 8.4 Eos % (Auto) 4.2 Baso % (Auto) 0.6 Absolute Neuts (auto) 3.7 Absolute Lymphs (auto) 2.27 Nucleated RBC % 0 Sodium 140 Potassium 3.9 Chloride 106 Carbon Dioxide 24.3 Anion Gap 10 BUN 7 Creatinine 0.61 L Estim Creat Clear Calc 174.29 Est GFR (MDRD) Non-Af 128 BUN/Creatinine Ratio 11.7 Glucose 93 Calcium 8.8 Troponin T High Sens < 6 Troponin T Hi Sens 2 Hr < 6 Radiography Diagnostic Testing: Clinical Impression(s) from Imaging Studies Head CTA 12/20/24 19:22 IMPRESSION: Study within normal limits Reading Location: [facility] Chest X-Ray 12/20/24 20:05 IMPRESSION: No focal consolidations. Reading Location: [id number] Treatment and Re-Evaluation :: Attending note: I have personally performed a face to face assessment of the patient and have reviewed the RON note. I personally made/approved the management plan and take responsibility for the patient management. I performed a substantive portion of the visit including all aspects of the following. My ibrahim findings include: Intermittent chest pain for the last month had pain today resolved on arrival intermittent headaches same out of time Sister had aneurysm with rupture therefore is concerned. Denies head trauma. Exam no meningismus. No focal deficits. Heart was regular lungs are clear. EKG normal rhythm. Cardiac workup troponin negative x 2. She had CT angiogram that was normal. Treated with Tylenol. PERC negative. She can follow with PCP and neurology. Discharge Plan Triage Chief Complaint: General Illness ED Midlevel Provider: Sarah Cedeno ED Provider: Andrés Yates Dx/Rx/DC Orders Clinical Impression: Headache, Atypical chest pain Instructions: Self-Care for Headaches, ED Chest Pain, Uncertain Cause Prescriptions: No Action NK Primary Care Provider: Care Physician,No Primary Referrals: Juliana Jung [facility] [Provider Group] - 5-7 Days Jv Epstein MD [Non-Staff -Ordering Privileges] - 1 Week Care Physician,No Primary [Primary Care Provider] - Activity Restrictions/Additional Instructions: I have referred you to both neurology and a PCP, please follow-up and return for any worsening symptoms. Print Language: Estonian Disposition Disposition: Home, Self Care Discharge Date/Time: 12/20/24 21:57
[2024-12-20 20:46] VITALS: BP 129/81; PULSE 70; RESP 15; O2SAT 98
[2024-12-20] MEDS: Acetaminophen 500 MG Tablet 1000 MG PO (21:32)
[2024-12-20] MEDS: Ketorolac 15 MG/ML Vial IV (21:52)
[2024-12-20 21:56] VITALS: BP 129/81; PULSE 70; RESP 15; TEMP 36.6; O2SAT 98
[2024-12-20 22:05] LABS: Troponin T High Sens 2 HR < 6 ng/L (<=14)
== END 2024-12-20 21:57 | disposition home or self-care (01) ==
PROVIDERS: Physician Assistant; Emergency Provider Emergency Medicine; Visit Provider Emergency Medicine
DX: R07.89 Other chest pain (principal); R51.9 Headache, unspecified; R11.0 Nausea; D64.9 Anemia, unspecified; Z82.49 Family history of ischemic heart disease and other diseases of the circulatory system
CPT/HCPCS: 70496; 71046; 80048; 84484; 85025; 93005; 96374; 99284; Q9967; A4216